=== PATIENT | male | born 1950 | race Caucasian/White ===

== ENCOUNTER 2017-10-02 20:41 | Inpatient (IN) | payer OTHER ==
[~2017-10-02] VITALS: Ht 177.8 cm; Wt 70.1 kg
[2017-10-02] MEDS ORDERED: ASPI-391 PO (21:31)
[2017-10-02] MEDS ORDERED: ASPI81TA28 PO (21:31)
[2017-10-02] MEDS ORDERED: SODIUM CHLORIDE 0.9% 1000ML 1,000 ML IV STA ×2 (21:45→23:45)
[2017-10-02] MEDS ORDERED: ALBUT/IPRATROP 3MG/0.5MG NEB 3 ML VIAL INH STA (21:45)
--- NOTE | 2017-10-02 21:53 | EMERGENCY ROOM VISIT NOTE ---
History Report prepared by Benjy: Rock Mendoza Under the Supervision of: Dr. Juancho Monsalve M.D. First contact with patient: 21:43 Chief Complaint: URINARY SYMPTOMS Stated Complaint: BLOOD IN URINE, ALL OVER PAIN, PASSING OUT Nursing Triage Summary: pt states fall last injuring ribs, states was drinking too much alcohol and fell down, pt states pain on palpation of right side ribs, states left side is healing. Pt states urine appears to have blood in it for 5 days now. Pt denies burning during urination, urgency or retention. Pt states cough since the fall non productive. 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 He notes weakness, loss of appetite. He notes that he had a fall one week ago due to intoxication. He states that he drinks alcohol every day for eight years. He notes that he has gone two days this week without drinking alcohol. He denies any history of withdrawals of alcohol in the past. He notes the rib pain. He states the hematuria started before the fall. He notes a history of smoking one pack per day. Per family, there was blood in his urine before the fall. He denies any pain with urination. He is able to urinate without issue. He notes new leg swelling. He denies any head injuries, diarrhea, chest pain, shortness of breath , fevers, chills, back pain, abdominal pain. The patient states that it has been 15 years since he has seen a doctor. 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 No pain. Able to urinate.), + weakness, No fevers, No chills, No chest pain, No abdominal pain, No back pain, No diarrhea Note: The patient notes blood in urine. He notes rib pain and leg swelling. He denies any head injuries Review of Systems See HPI for pertinent positives and negatives. A total of ten systems were reviewed and were otherwise negative. Past Medical & Surgical Medical Problems: (1) Skin problem Family History Cancer Social History Smoking Status: Current Every Day Smoker (1 ppd) Smokeless Tobacco Use: No Alcohol Use: heavy (everyday ) Drug Use: none Housing Status: lives with family Occupation Status: unemployed Current/Historical Medications Scheduled Aspirin (Aspirin Ec), 162 MG PO DAILY Scheduled PRN Gmbmxcl-Oqvbmdboluowz-Biwdirfp (Excedrin Extra Strength), 1 TAB PO DIRECTED PRN for Pain Allergies Coded Allergies: No Known Allergies (Unverified , 10/03/17) Physical Exam Vital Signs Date Time Temp Pulse Resp B/P (MAP) Pulse Ox O2 Delivery O2 Flow Rate FiO2 10/03/17 01:57 105 18 104/64 91 Room Air 10/02/17 22:37 96 16 144/85 98 Room Air 10/02/17 21:45 91 10/02/17 21:03 37.0 100 19 134/85 95 Room Air Physical Exam GENERAL: Awake, alert, ill-appearing, in no distress. Cachetic. HENT: Normocephalic, atraumatic. Oropharynx dry cracked mucus membrane EYES: Normal conjunctiva. Sclera non-icteric. NECK: Supple. No nuchal rigidity. FROM. No JVD. RESPIRATORY: Scant scattered wheezes and rhonchi. CARDIAC: Regular rate, normal rhythm. Extremities warm and well perfused. Pulses equal. ABDOMEN: Soft, non-distended. No tenderness to palpation. No rebound or guarding. No masses. RECTAL: Deferred. MUSCULOSKELETAL: The back is symmetrical on inspection without obvious abnormality. There is no CVA tenderness to palpation. No joint edema. Bilateral lateral and posterior chest wall pain. LOWER EXTREMITIES: Calves are equal size bilaterally and non-tender. No edema. No discoloration. NEURO: Normal sensorium. No sensory or motor deficits noted. SKIN: No rash or jaundice noted. Medical Decision & Procedures ER Provider Diagnostic Interpretation: Preliminary Findings Only See Final Report For Complete Findings CT ABDOMEN & PELVIS With Contrast: Fluid in the small and large bowel, can be seen with enteritis or diarrheal disease. Mild inferior rectal/anal wall thickening. No evidence of bowel obstruction. Gastric wall thickening or underdistention. Fat-containing left inguinal hernia. Additional incidental findings. Preliminary Findings Only See Final Report For Complete Findings CT CHEST With Contrast: No aortic dissection or large central PE. Fracture of the left fourth-eighth ribs and right third-seventh ribs. Age-indeterminate compression deformity of the T12 vertebral body with approximately 4 mm retropulsion. Patchy infiltrates most prominent in the right middle lobe. Correlate clinically for inflammatory/infectious process.. Tiny pulmonary nodules. Followup imaging may be considered if indicated. No pneumothorax or pleural effusion. Mild esophageal wall thickening Laboratory Results Test 10/02/17 22:13 10/02/17 22:20 10/02/17 22:32 10/02/17 22:45 Influenza Type A Antigen Neg for Influ A (NEG) Influenza Type B Antigen Neg for Influ B (NEG) Prothrombin Time 10.3 SECONDS (9.0-12.0) Prothromb Time International Ratio 1.0 (0.9-1.1) Activated Partial Thromboplast Time 32.0 SECONDS (21.0-31.0) Partial Thromboplastin Ratio 1.2 Direct Bilirubin 0.4 mg/dl (0-0.2) Lipase 84 U/L (73-393) Lactic Acid Level 1.1 mmol/L (0.4-2.0) Ethyl Alcohol mg/dL < 3.0 mg/dl (0-3) Bedside Hemoglobin 13.6 g/dl (14.0-18.0) Bedside Hematocrit 40 % (42-52) Bedside Sodium 128 mEq/L (135-144) Bedside Potassium 4.4 mEq/L (3.3-5.0) Bedside Chloride 89 mEq/L (101-112) Bedside Total CO2 28 mEq/l (24-31) Bedside Blood Urea Nitrogen 14 mg/dl (7-18) Bedside Creatinine 0.6 mg/dl (0.6-1.3) Bedside Glucose (other) 92 mg/dl (70-99) Bedside Ionized Calcium (Ceci) 1.05 mmol/l (1.12-1.32) Test 10/02/17 23:15 Urine Color ORANGE Urine Appearance CLEAR (CLEAR) Urine pH 6.0 (4.5-7.5) Urine Specific [place] 1.022 (1.000-1.030) Urine Protein NEG (NEG) Urine Glucose (UA) NEG (NEG) Urine Ketones 3+ (NEG) Urine Occult Blood NEG (NEG) Urine Nitrite POS (NEG) Urine Bilirubin NEG (NEG) Urine Urobilinogen POS (NEG) Urine Leukocyte Esterase TRACE (NEG) Urine WBC (Auto) 1-5 /hpf (0-5) Urine RBC (Auto) 0-4 /hpf (0-4) Urine Hyaline Casts (Auto) 5-10 /lpf (0-5) Urine Epithelial Cells (Auto) 10-20 /lpf (0-5) Urine Bacteria (Auto) NEG (NEG) Urine Opiates Screen NEG (NEG) Urine Methadone, Qualitative NEG (NEG) Urine Barbiturates NEG (NEG) Urine Phencyclidine (PCP) Level NEG (NEG) Ur Amphetamine/Methamphetamine NEG (NEG) MDMA (Ecstasy) Screen NEG (NEG) Urine Benzodiazepines Screen NEG (NEG) Urine Cocaine Metabolite NEG (NEG) Urine Marijuana (THC) NEG (NEG) Date/Time Source Procedure Growth Status 10/03/17 00:00 Nasal MRSA DNA Surveillance Screen - Final Specimen Negative for MRSA by DNA Probe Complete Laboratory results reviewed by me Medications Administered Medications (Trade) Dose Ordered Sig/Jacklyn Route Start Time Stop Time Status Last Admin Dose Admin Sodium Chloride 1,000 ml @ 999 mls/hr Q1H1M STAT IV 10/02/17 21:45 10/02/17 22:45 DC 10/02/17 22:35 999 MLS/HR Albuterol/ Ipratropium (Duoneb) 3 ml NOW STAT INH 10/02/17 21:45 10/02/17 21:52 DC 10/02/17 22:15 3 ML Vancomycin HCl 1500 mg/Sodium Chloride 530 ml @ 200 mls/hr ONE STAT IV 10/02/17 23:45 10/03/17 02:23 DC 10/03/17 00:38 200 MLS/HR Piperacillin Sod/ Tazobactam Sod (Zosyn Iv) 4.5 gm NOW STAT IV 10/02/17 23:45 10/03/17 13:14 DC 10/03/17 00:18 4.5 GM Sodium Chloride 1,000 ml @ 999 mls/hr Q1H1M STAT IV 10/02/17 23:45 10/03/17 00:45 DC 10/03/17 00:12 999 MLS/HR Aspirin (Aspirin Chew) 324 mg NOW STAT PO 10/03/17 00:24 10/03/17 00:26 DC 10/03/17 00:38 324 MG Multivitamins 10 ml/Thiamine HCl 100 mg/Folic Acid 1 mg/Sodium Chloride 1,011.2 ml @ 500 mls/ hr Q2H2M ONCE IV 10/03/17 00:40 10/03/17 02:41 DC 10/03/17 01:57 500 MLS/HR Acetaminophen (Tylenol Tab) 650 mg Q4H PRN PO 10/03/17 02:30 11/02/17 02:29 10/03/17 19:50 650 MG ECG Indication: other (hematuria) Rate (beats per minute): 94 Rhythm: normal sinus Findings: T-wave inversion (in V2 and V3), other (Normal axis) Change: TWI new when compared to 12/16/2015 ED Course 2144: The patient was evaluated in room B4B. A complete history and physical exam was performed. 0028: I reassessed the patient at this time. He is resting comfortably. I discussed the results and treatment plan with the patient. I answered all pertaining questions that he had. He expressed understanding and verbalized agreement. The patient will be further evaluated. 0030: I spoke with Dr. Turcios, hospitalist. We discussed the patients case. The patient will be evaluated by the [facility] for further management. Medical Decision I reviewed the patient's past medical history, medications, and the nursing notes as described above. The patient's presentation and history were concerning for PNA, bronchitis, UTI , ureteral stone, sepsis, viral syndrome, and ACS. The patient is a 67-year-old gentleman chronic smoker and alcohol use of 8 beers daily presents emergency Department with worsening fatigue, generalized weakness and report of hematuria times one week also with bilateral chest wall pain after having a fall when intoxicated 10 days ago per hpi. Arrival the patient is ill-appearing but in no acute distress, afebrile with stable vital signs. She has scattered wheezes and rhonchi. Bilateral chest wall tenderness without any crepitus. Abdomen benign. Labs notable for a leukocytosis as well as CT chest demonstrating right lobe infiltrates. Additionally UA shows nitrites consistent with UTI. No blood however. Troponin elevated 0.2 and EKG with T-wave inversions in V2 and V3 although no recent EKGs for comparison. Given the patient's clinical dry status as well as his pneumonia we'll continue to trend troponin for now prior to considering heparin. Patient demonstrates no signs of alcohol withdrawal at this time however given the patient's history of regular alcohol use will put on CIWA and give banana bag. Case d/w Dr. Turcios, [facility] hospitalist, who will admit the patient for further management. Medication Reconcilliation Current Medication List: was personally reviewed by me Blood Pressure Screening Patient's blood pressure: Elevated blood pressure Blood pressure disposition: Elevated BP felt to be situational Consults Time Called: 24 Consulting Physician: Dr. Turcios hospitalist. Returned Call: [address] Turcios, hospitalist. We discussed the patients case. The patient will be evaluated by the [facility] for further management. Impression Primary Impression: PNA (pneumonia) Additional Impressions: Multiple fractures of ribs of both sides UTI (urinary tract infection) Sepsis Scribe Attestation The scribe's documentation has been prepared under my direction and personally reviewed by me in its entirety. I confirm that the note above accurately reflects all work, treatment, procedures, and medical decision making performed by me. Departure Information Dispostion Being Evaluated By Hospitalist Patient Instructions My [facility] Health Problem Qualifiers
[2017-10-02] MEDS ORDERED: OPTIRAY 320 IV PRN (22:00)
[2017-10-02 22:51] LABS: BASO % 0.2 %; BASO ABS # 0.04 K/uL (0-0.2); EOS % 0.1 %; EOS ABS # 0.01 K/uL (0-0.5); HEMATOCRIT 40.5 % (42-52); HEMOGLOBIN 13.9 g/dL (14.0-18.0); IG# 0.06 K/uL (0.00-0.02); LYMPH % 10.2 %; LYMPH ABS # 1.66 K/uL (1.2-3.4); MEAN CELL VOLUME 97.4 fL (80-100); MEAN CORPUSCULAR HEMOGLOBIN 33.4 pg (25-34); MEAN CORPUSCULAR HGB CONC 34.3 g/dl (32-36); MEAN PLATELET VOLUME 9.3 fL (7.4-10.4); MONO % 13.5 %; MONO ABS # 2.19 K/uL (0.11-0.59); NEUT % 75.6 %; NEUT ABS # 12.24 K/uL (1.4-6.5); PLATELET COUNT 228 K/uL (130-400); RED CELL DISTRIBUTION WIDTH CV 12.7 % (11.5-14.5); RED CELL DISTRIBUTION WIDTH SD 44.7 fL (36.4-46.3)
--- NOTE | 2017-10-02 22:52 | DIAGNOSTIC IMAGING REPORT ---
CHEST ONE VIEW PORTABLE CLINICAL HISTORY: ABDOMINAL PAIN/GI nausea COMPARISON STUDY: No previous studies for comparison. FINDINGS: Probable interstitial infiltrate right base. Lungs otherwise appear clear. Calcified granuloma left upper lung. No cardiac enlargement. No significant pleural fluid. IMPRESSION: Probable interstitial infiltrate right base The above report was generated using voice recognition software. It may contain grammatical, syntax or spelling errors. Electronically signed by: Chicho Pettit M.D. 10/02/2017 10:51 PM Dictated Date/Time: 10/02/2017 10:50 PM
[2017-10-02 22:57] LABS: ISTAT CREATININE 0.6 mg/dl (0.6-1.3); ISTAT IONIZED CALCIUM 1.05 mmol/l (1.12-1.32); ISTAT POTASSIUM 4.4 mEq/L (3.3-5.0)
[2017-10-02 23:09] LABS: ALBUMIN 2.9 gm/dl (3.4-5.0); CALCIUM 8.7 mg/dl (8.5-10.1); CREATININE 0.51 mg/dl (0.60-1.40)
[2017-10-02 23:33] LABS: INFLUENZA B ANTIGEN Neg for Influ B (NEG)
[2017-10-02] MEDS ORDERED: VANCOMYCIN INJ 1,500 MG in SODIUM CHLORIDE 0.9% 500ML 500 ML IV STA (23:45)
[2017-10-02] MEDS ORDERED: PIPERACILLIN/TAZOBACTAM 4.5 GM/100ML D5W IV STA (23:45)
[2017-10-03] VITALS (11 sets, daily range): BP systolic 111–129; BP diastolic 70–85; PULSE 72–101; TEMP 36.7–37.3; O2SAT 83–99; BMI 23.2
[2017-10-03] MEDS ORDERED: ASPIRIN 81 MG CHEW PO STA (00:24)
[2017-10-03] MEDS ORDERED: MULTI-VITAMIN INFUSION INJ 10 ML, THIAMINE HCL INJ 100 MG, FoLIC ACID INJ 1 MG in SODIU... IV ONE ×2 (00:40→03:00)
[2017-10-03] MEDS ORDERED: LORAZEPAM 1 MG TAB PO PRN (00:45)
[2017-10-03] MEDS ORDERED: ONDANSETRON INJ 2 MG/ML 2 ML VIAL IV PRN (02:30)
[2017-10-03] MEDS ORDERED: CHLORDIAZEPOXIDE 25 MG CAP PO SCH (02:30)
[2017-10-03] MEDS ORDERED: MAGNESIUM HYDROXIDE SUSP 30 ML UDC PO PRN (02:30)
--- NOTE | 2017-10-03 03:08 | History and Physical ---
History & Physical Date & Time of Service: Oct 03, 2017 at 02:36 Chief Complaint: Blood In Urine, All Over Pain, Passing Out Primary Care Physician: No Doctor, Assigned History of Present Illness Source: patient, hospital records Patient is a 67 year old male with a history of alcoholism that presents with pneumonia and multiple rib fractures s/p fall. The patient experienced a fall 2 weeks ago when drunk although did not seek medical attention. The patient then started to develop a productive cough 1 week ago that has continued to progress to the point his family urged him to come to the hospital. The patient has also states that his urine appear bloody almost like "tomato juice" and has been this way for a few week even before the fall, but denies any other urinary symptoms including dysuria or urinary frequency. The patient drinks approximately 8 beers every day and his last drink was yesterday evening. The patient also smoke 1 pack of cigarettes per day. The patient has bilateral chest pain with cough that is approximately 8/10. The patient denies any shortness of breath, fever, or chill with his associated cough. The patient does appreciate that he has been more fatigued the last week with reduced appetite. Past Medical/Surgical History Medical Problems: (1) Skin problem Status: Resolved Family History Cancer Social History Smoking Status: Current Every Day Smoker (1 ppd) Smokeless Tobacco Use: No Alcohol Use: none Drug Use: none Occupational Status: unemployed Immunizations History of Influenza Vaccine: Unknown History of Tetanus Vaccine?: Unknown History of Pneumococcal: Unknown History of Hepatitis B Vaccine: Unknown Multi-Drug Resistant Organisms History of MDRO: No Allergies Coded Allergies: No Known Allergies (Unverified , 10/03/17) Home Medications Scheduled Aspirin (Aspirin Ec), 162 MG PO DAILY Scheduled PRN Vervudz-Xgohwtxuayjpt-Ovtaliph (Excedrin Extra Strength), 1 TAB PO DIRECTED PRN for Pain Review of Systems Constitutional: No fever, No chills, No sweats Respiratory: + cough, + wheezing, No sputum, No shortness of breath Cardiovascular: + chest pain, No edema, No palpitations Abdomen: No pain, No nausea, No vomiting, No diarrhea Genitourinary - Male: + hematuria, No dysuria Neurologic: No memory loss, No numbness/tingling, No vertigo Endocrine: No fatigue Physical Exam Vital Signs Date Time Temp Pulse Resp B/P (MAP) Pulse Ox O2 Delivery O2 Flow Rate FiO2 10/03/17 01:57 105 18 104/64 91 Room Air 10/02/17 22:37 96 16 144/85 98 Room Air 10/02/17 21:45 91 10/02/17 21:03 37.0 100 19 134/85 95 Room Air General Appearance: no apparent distress, + pertinent finding (disheveled appearance) Head: normocephalic, atraumatic Eyes: normal inspection, sclerae normal Neck: supple, no carotid bruits Respiratory/Chest: no accessory muscle use, + pertinent finding (bilateral chest pain to palpation. Decreased breath sounds bilaterally with scattered wheezing and coarse breath sounds ) Cardiovascular: regular rate, rhythm, no edema, no gallop Abdomen/GI: normal bowel sounds, non tender, soft Extremities/Musculoskelatal: normal inspection, no calf tenderness Neurologic/Psych: inspector aide II-XII nml as tested, alert, oriented x 3 Diagnostics Laboratory Results Results Past 24 Hours Test 10/02/17 22:13 10/02/17 22:20 10/02/17 22:32 10/02/17 22:45 Range/Units Influenza Type A Antigen Neg for Influ A NEG Influenza Type B Antigen Neg for Influ B NEG White Blood Count 16.20 4.8-10.8 K/uL Red Blood Count 4.16 4.7-6.1 M/uL Hemoglobin 13.9 14.0-18.0 g/dL Hematocrit 40.5 42-52 % Mean Corpuscular Volume 97.4 80-100 fL Mean Corpuscular Hemoglobin 33.4 25-34 pg Mean Corpuscular Hemoglobin Concent 34.3 32-36 g/dl Platelet Count 228 130-400 K/uL Mean Platelet Volume 9.3 7.4-10.4 fL Neutrophils (%) (Auto) 75.6 % Lymphocytes (%) (Auto) 10.2 % Monocytes (%) (Auto) 13.5 % Eosinophils (%) (Auto) 0.1 % Basophils (%) (Auto) 0.2 % Neutrophils # (Auto) 12.24 1.4-6.5 K/uL Lymphocytes # (Auto) 1.66 1.2-3.4 K/uL Monocytes # (Auto) 2.19 0.11-0.59 K/uL Eosinophils # (Auto) 0.01 0-0.5 K/uL Basophils # (Auto) 0.04 0-0.2 K/uL RDW Standard Deviation 44.7 36.4-46.3 fL RDW Coefficient of Variation 12.7 11.5-14.5 % Immature Granulocyte % (Auto) 0.4 % Immature Granulocyte # (Auto) 0.06 0.00-0.02 K/uL Prothrombin Time 10.3 9.0-12.0 SECONDS Prothromb Time International Ratio 1.0 0.9-1.1 Activated Partial Thromboplast Time 32.0 21.0-31.0 SECONDS Partial Thromboplastin Ratio 1.2 Sodium Level 128 136-145 mmol/L Potassium Level 4.0 3.5-5.1 mmol/L Chloride Level 91 98-107 mmol/L Carbon Dioxide Level 26 21-32 mmol/L Anion Gap 11.0 17.0 16-25 mmol/L Blood Urea Nitrogen 12 7-18 mg/dl Creatinine 0.51 0.60-1.40 mg/dl Est Creatinine Clear Calc Drug Dose 135.2 ml/min Estimated GFR () 128.9 Estimated GFR (Non- 111.2 BUN/Creatinine Ratio 24.0 10-20 Random Glucose 86 70-99 mg/dl Calcium Level 8.7 8.5-10.1 mg/dl Total Bilirubin 1.3 0.2-1 mg/dl Direct Bilirubin 0.4 0-0.2 mg/dl Aspartate Amino Transf (AST/SGOT) 19 15-37 U/L Alanine Aminotransferase (ALT/SGPT) 16 12-78 U/L Alkaline Phosphatase 59 45-117 U/L Troponin I 0.214 0-0.045 ng/ml Total Protein 7.0 6.4-8.2 gm/dl Albumin 2.9 3.4-5.0 gm/dl Lipase 84 73-393 U/L Lactic Acid Level 1.1 0.4-2.0 mmol/L Ethyl Alcohol mg/dL < 3.0 0-3 mg/dl Bedside Hemoglobin 13.6 14.0-18.0 g/dl Bedside Hematocrit 40 42-52 % Bedside Sodium 128 135-144 mEq/L Bedside Potassium 4.4 3.3-5.0 mEq/L Bedside Chloride 89 101-112 mEq/L Bedside Total CO2 28 24-31 mEq/l Bedside Blood Urea Nitrogen 14 7-18 mg/dl Bedside Creatinine 0.6 0.6-1.3 mg/dl Bedside Glucose (other) 92 70-99 mg/dl Bedside Ionized Calcium (Ceci) 1.05 1.12-1.32 mmol/l Test 10/02/17 23:15 10/03/17 01:13 10/03/17 02:18 Range/Units Urine Color ORANGE Urine Appearance CLEAR CLEAR Urine pH 6.0 4.5-7.5 Urine Specific [place] 1.022 1.000-1.030 Urine Protein NEG NEG Urine Glucose (UA) NEG NEG Urine Ketones 3+ NEG Urine Occult Blood NEG NEG Urine Nitrite POS NEG Urine Bilirubin NEG NEG Urine Urobilinogen POS NEG Urine Leukocyte Esterase TRACE NEG Urine WBC (Auto) 1-5 0-5 /hpf Urine RBC (Auto) 0-4 0-4 /hpf Urine Hyaline Casts (Auto) 5-10 0-5 /lpf Urine Epithelial Cells (Auto) 10-20 0-5 /lpf Urine Bacteria (Auto) NEG NEG Troponin I 0.234 0-0.045 ng/ml Microbiology Results 10/02/17 Blood Culture, Received Pending Impression Assessment and Plan Patient is a 67 year old male with a history of alcoholism that presents with pneumonia and multiple rib fractures s/p fall 2 weeks ago Pneumonia - Admit to Telemetry - CXR: Right lung basilar infiltrate - CT Chest: Patchy infiltrate of R middle lobe - Broad spectrum antibiotics --> Vancomycin, Levaquin, and Zosyn - Oxygen as needed to maintain SpO2 > 92% --> Currently on room air - Duonebs - Flutter Valve - Pain control for rib fractures --> Tylenol - Blood cultures ordered Multiple Rib Fractures s/p fall - CT Chest --> Fracture of Left Ribs 4-8, Right Ribs 3-7 --> No s/s of flail chest - Pain control with Tylenol - Incentive Spirometry - Compression deformity of T12 with 4mm retropulsion of unknown age Elevated Troponin - Most likely 2/2 demand ischemia - Initial Troponin 0.214 --> Repeat Troponin q6h x3 - Echo - Cardiology consult Alcohol Withdrawal - CIWA protocol --> 50mg Librium and IV Ativan as needed --> last drink 24 hours ago - Banana Bag - Thiamine daily - IV NS 100mls/hr - Lab: Thiamine, Folate, Urine Tox Bowel Enteritis - CT Abdomen showed fluid in small and large bowl seen with enteritis - Tolerating PO (family brought patient food in the ED) --> Continue to monitor - Ordered regular diet DVT - Heparin Code Status - Full Resuscitation Attending addendum: I have physically seen this patient, have supervised the medical residents activities, and agree with the H&P unless as otherwise noted. Assessment and Plan: Pneumonia involving right middle and right lower lobe-- Vancomycin IV per pharmacokinetic monitoring Zosyn 3.375 mg IV every 8 hours Levofloxacin 500 mg IV every 24 hours Duonebs every 4 hours while awake and every 2 hours when necessary. Solu-Medrol 40 mg IV every 8 hours Guaifenesin extended release 600 mg by mouth twice a day Nasal cannula oxygen titrate to keep pulse ox greater than or equal to 92% Sputum Gram stain and culture Elevated troponin-- The patient will be admitted to telemetry for serial cardiac enzymes, serial EKG's, cardiac rhythm monitoring and a 2-D echocardiogram with Dopplers. Likely supply demand mismatch Level of Care Telemetry Advanced Directives Existing Advance Directive: No Existing Living Will: No Existing Power of Aromatherapist: No Resuscitation Status FULL RESUSCITATION VTE Prophylaxis VTE Risk Assessment Done? Y/N: Yes Risk Level: Moderate Given or contraindicated: Unfractionated heparin SQ Resident Tracking Resident Involvement: Resident Care Provided Care Provided: Adult Hospital Medicine
[2017-10-03] MEDS ORDERED: PIPERACILL/TAZOBAC CONSULT ACTIVE PRN (04:15)
[2017-10-03] MEDS ORDERED: VANCOMYCIN CONSULT ACTIVE PRN (04:15)
[2017-10-03] MEDS: CHLORDIAZEPOXIDE 50MG STARTING DOSE PO SCH ×4 (04:21→23:04)
[2017-10-03] MEDS: THIAMINE HCL INJ 100 MG in SYRINGE 9 ML IV SCH (04:24)
[2017-10-03] MEDS ORDERED: PNEUMOCOCCAL POLYSACCHARIDES 25 MCG/0.5 ML VIAL/SYR IM. ONE (05:15)
[2017-10-03] MEDS ORDERED: INFLUENZA ADMINISTRATION CHARGE ONE (05:15)
[2017-10-03] MEDS ORDERED: PNEUMOCOCCAL ADMINISTRATION CHARGE ONE (05:15)
[2017-10-03] MEDS ORDERED: INFLUENZA VIRUS QUAD VACCINE 0.5 ML SYR IM. ONE (05:15)
[2017-10-03] MEDS ORDERED: PIPERACILL/TAZOBAC IV 3.375 GM in DEXTROSE 5% 100ML 100 ML IV SCH (06:00)
[2017-10-03] MEDS: HEPARIN SOD 5000 UNIT/0.5 ML CARP SQ SCH ×3 (06:00→19:35)
[2017-10-03] MEDS: SODIUM CHLORIDE 0.9% 1000ML 1,000 ML IV SCH ×2 (06:09→19:52)
--- NOTE | 2017-10-03 07:00 | DIAGNOSTIC IMAGING REPORT ---
CT OF THE CHEST WITH IV CONTRAST CLINICAL HISTORY: Chest pain status post trauma COMPARISON STUDY: Chest x-ray dated 10/02/2017 TECHNIQUE: Following the IV administration of 118 mL of Optiray-320, CT of the thorax was performed from the thoracic inlet to the lung bases. Images are reviewed in the axial, sagittal, and coronal planes. IV contrast was administered without complication. A dose lowering technique was utilized adhering to the principles of ALARA. CT DOSE: 622.45 mGy.cm FINDINGS: Thyroid: Imaged portions of the thyroid gland are normal in appearance. Thoracic aorta: The thoracic aorta is normal in course and caliber, noting standard 3-vessel arch anatomy. No aneurysm or dissection is seen. Pulmonary vasculature: The pulmonary trunk is normal in caliber. There are no central filling defects identified to suggest pulmonary embolus. Note that this examination was not protocoled for the evaluation of pulmonary emboli. HEART: The heart is normal in size and configuration, without pericardial effusion. Lungs and pleural spaces: There is pulmonary emphysema. There are airspace opacities present within the right middle lobe and right lower lobe. No pleural effusions are visualized. There is no pneumothorax. There are scattered tiny 2 mm nodules throughout both lungs. Mediastinum: There is no mediastinal lymphadenopathy. Sandra: There is no evidence of pathologic hilar adenopathy Axilla: There is no evidence of pathologic axillary lymphadenopathy Upper abdomen: There is hepatic steatosis Skeletal structures: There are fractures of the right seventh and sixth fifth fourth and third ribs. There are fractures of the left third fourth fifth sixth seventh, and eighth ribs. There is an age-indeterminate T12 compression fracture, with mild retropulsion.. IMPRESSION: 1. Fractures of the right third through seventh ribs. 2. Fractures of the left third through eighth ribs. 3. Age-indeterminate T12 compression fracture with minor retropulsion 4. No evidence of pneumothorax 5. Patchy airspace opacities within the right middle lobe and right lower lobe, suspicious for a pneumonia. 6. Scattered tiny bilateral pulmonary nodules. 7. Emphysema Electronically signed by: Jeremías Pnieda M.D. 10/03/2017 6:58 AM Dictated Date/Time: 10/03/2017 6:48 AM
[2017-10-03] MEDS: ALBUT/IPRATROP 3MG/0.5MG NEB 3 ML VIAL INH SCH ×4 (07:16→19:54)
--- NOTE | 2017-10-03 07:32 | DIAGNOSTIC IMAGING REPORT ---
CT SCAN OF THE ABDOMEN AND PELVIS WITH IV CONTRAST CLINICAL HISTORY: Generalized abdominal pain. Hematuria. COMPARISON STUDY: No priors. TECHNIQUE: Following the IV administration of 118 cc of Optiray 320, CT scan of the abdomen and pelvis is performed from the lung bases to the proximal femora. Images are reviewed in the axial, sagittal, and coronal planes. IV contrast was administered without complication. A dose lowering technique was utilized adhering to the principles of ALARA. FINDINGS: Lung bases: The heart is normal in size and without pericardial effusion. Emphysema is suspected. There is airspace consolidation present within the right middle lobe and the anterior right lower lobe. No pleural effusion is identified. Liver: The contrast-enhanced liver is normal in size, contour, and attenuation. There is no intrahepatic biliary ductal dilatation. The hepatic veins and portal veins are patent. Gallbladder: Unremarkable. Spleen: Normal in size and attenuation. Pancreas: Unremarkable. Adrenal glands: Unremarkable. Kidneys: The contrast enhanced kidneys demonstrate mild cortical atrophy and are without hydronephrosis. The kidneys enhance symmetrically. Abdominal vasculature: The abdominal aorta is normal in course and caliber noting advanced atherosclerotic calcification. Bowel: Liquid stool is noted in the colon. No bowel obstruction is seen. The appendix is not clearly identified. Peritoneum: There is no intraperitoneal free air or abdominal ascites. Lymphadenopathy: None. Pelvic viscera: The bladder, prostate, and seminal vesicles are normal as visualized. There is a fat-containing left inguinal hernia. Skeletal structures: The skeletal structures are osteopenic. No lytic or blastic lesions are seen. There is an age indeterminant right anterior seventh rib fracture. There are also age indeterminant left-sided rib fractures. There is a moderate compression deformity of T12. Degenerative change and scoliosis are noted in the lumbar spine. IMPRESSION: 1. There is liquid stool present throughout the colon. Cortical clinically for evidence of a diarrheal illness. There is no associated colonic wall thickening or pericolonic inflammation. 2. There is an age indeterminant compression deformity of T12 as well as age-indeterminate rib fractures. Correlate clinically for a history of trauma and point tenderness. 3. Consolidation is seen within the right middle and lower lobes. Correlated clinically for evidence of pneumonia. Radiographic follow-up to resolution is recommended. 4. Fat-containing left inguinal hernia. 5. Additional findings as above. Electronically signed by: Juan C Patiño M.D. 10/03/2017 7:31 AM Dictated Date/Time: 10/03/2017 7:25 AM
[2017-10-03] MEDS ORDERED: NICOTINE 21 MG/24 HR TDSY TD SCH (09:00)
--- NOTE | 2017-10-03 09:00 | Family Medicine Progress Note ---
Progress Note Date of Service Oct 03, 2017. Subjective Pt evaluation today including: conversation w/ patient, physical exam, chart review, lab review, review of studies, review of inpatient medication list Complaining of 7/10 best pain worse on palpation. Denies shortness of breath but cannot take deep breaths due to pain. No palpitations, orthopnea, PND. He has a non productive cough. No fevers or chills. He denies any anxiety, tremors, headache, hallucinations. He notes he previous gave up alcohol for a month 3 years prior without any issues. He has never been to rehabilitation or had any alcohol withdrawal seizures. All Other Systems: Reviewed and Negative Medications Current Inpatient Medications Medications (Trade) Dose Ordered Sig/Jacklyn Route Start Time Stop Time Status Last Admin Dose Admin Ioversol (Optiray 320) 111 ml UD PRN IV 10/02/17 22:00 10/06/17 21:59 Sodium Chloride 1,000 ml @ 100 mls/hr Q10H IV 10/03/17 06:00 11/02/17 05:59 10/03/17 06:09 100 MLS/HR Thiamine HCl 100 mg/Syringe 10 ml @ 2 mls/min Q24H IV 10/03/17 03:00 11/02/17 02:59 10/03/17 04:24 2 MLS/MIN Lorazepam (Ativan Inj) PRN Dosing -Active Protocol Q1H PRN IV 10/03/17 02:30 11/02/17 02:29 Acetaminophen (Tylenol Tab) 650 mg Q4H PRN PO 10/03/17 02:30 11/02/17 02:29 Magnesium Hydroxide (Milk Of Magnesia Susp) 30 ml Q12H PRN PO 10/03/17 02:30 11/02/17 02:29 Ondansetron HCl (Zofran Inj) 4 mg Q6H PRN IV 10/03/17 02:30 11/02/17 02:29 Aspirin (Ecotrin Tab) 81 mg QAM PO 10/03/17 09:00 11/02/17 08:59 Piperacillin Sod/ Tazobactam Sod 3.375 gm/Dextrose 115 ml @ 28.75 mls/ hr Q8H IV 10/03/17 06:00 10/10/17 05:59 10/03/17 06:07 28.75 MLS/HR Levofloxacin (Levaquin Tab) 750 mg Q2D@11 PO 10/03/17 11:00 10/10/17 10:59 Nicotine (Nicoderm Cq 21MG Patch) 1 patch QAM TD 10/03/17 09:00 11/02/17 08:59 Miscellaneous (Remove Nicoderm Patch) 1 ea HS N/A 10/03/17 21:00 11/02/17 20:59 Albuterol/ Ipratropium (Duoneb) 3 ml QIDR INH 10/03/17 08:00 11/02/17 07:59 10/03/17 07:16 3 ML Chlordiazepoxide (Librium Cap) 50 mg Q6H PO 10/03/17 04:00 10/03/17 22:01 10/03/17 04:21 50 MG Chlordiazepoxide (Librium Cap) 50 mg Q8H PO 10/04/17 06:00 10/04/17 22:01 Chlordiazepoxide (Librium Cap) 25 mg Q8H PO 10/05/17 06:00 10/05/17 22:01 Chlordiazepoxide (Librium Cap) 10 mg Q12H PO 10/06/17 10:00 10/06/17 22:01 Vancomycin HCl (Consult) 1 ea UD PRN N/A 10/03/17 04:15 11/02/17 04:14 Piperacillin Sod/ Tazobactam Sod (Consult) 1 ea UD PRN N/A 10/03/17 04:15 11/02/17 04:14 Heparin Sodium (Porcine) (Heparin Sq 5000 Unit/0.5ml) 5,000 unit Q8 SQ 10/03/17 06:00 11/02/17 05:59 Nicotine (Nicoderm Cq 21MG Patch) 1 patch QAM TD 10/03/17 09:00 11/02/17 08:59 UNV Miscellaneous (Remove Nicoderm Patch) 1 ea HS N/A 10/03/17 21:00 11/02/17 20:59 UNV Nicotine Polacrilex (Nicorette 2MG Gum) 1 piece PRN PRN MT 10/03/17 09:00 11/02/17 08:59 UNV Objective Vital Signs Date Time Temp Pulse Resp B/P (MAP) Pulse Ox O2 Delivery O2 Flow Rate FiO2 10/03/17 07:17 93 18 83 Room Air 10/03/17 03:59 37.3 101 20 129/85 93 Nasal Cannula 2.0 10/03/17 03:34 37.0 105 18 104/64 91 10/03/17 01:57 105 18 104/64 91 Room Air 10/02/17 22:37 96 16 144/85 98 Room Air 10/02/17 21:45 91 10/02/17 21:03 37.0 100 19 134/85 95 Room Air Physical Exam General Appearance: no apparent distress, + thin (appears malnourished) Eyes: normal inspection, sclerae normal Neck: trachea midline Respiratory/Chest: no respiratory distress, no accessory muscle use, + crackles (throughout with poor inspiratory effort), + rhonchi (b/l) Cardiovascular: regular rate, rhythm (quiet), no murmur Abdomen: normal bowel sounds, non tender, soft Extremities: no pedal edema, no calf tenderness, normal capillary refill Neurologic/Psychiatric: no motor/sensory deficits (grossly), alert, oriented x 3, + pertinent finding (no tremor or agitation) Skin: normal color, warm/dry, no rash Laboratory Results 10/02/17 22:20 Red Blood Count 4.16, Mean Corpuscular Volume 97.4, Mean Corpuscular Hemoglobin 33.4, Mean Corpuscular Hemoglobin Concent 34.3, Mean Platelet Volume 9.3, Neutrophils (%) (Auto) 75.6, Lymphocytes (%) (Auto) 10.2, Monocytes (%) (Auto) 13.5, Eosinophils (%) (Auto) 0.1, Basophils (%) (Auto) 0.2, Neutrophils # (Auto ) 12.24, Lymphocytes # (Auto) 1.66, Monocytes # (Auto) 2.19, Eosinophils # (Auto ) 0.01, Basophils # (Auto) 0.04 10/02/17 22:20 Test 10/02/17 22:13 10/02/17 22:20 10/02/17 22:32 10/02/17 22:45 Influenza Type A Antigen Neg for Influ A (NEG) Influenza Type B Antigen Neg for Influ B (NEG) White Blood Count 16.20 K/uL (4.8-10.8) Red Blood Count 4.16 M/uL (4.7-6.1) Hemoglobin 13.9 g/dL (14.0-18.0) Hematocrit 40.5 % (42-52) Mean Corpuscular Volume 97.4 fL (80-100) Mean Corpuscular Hemoglobin 33.4 pg (25-34) Mean Corpuscular Hemoglobin Concent 34.3 g/dl (32-36) Platelet Count 228 K/uL (130-400) Mean Platelet Volume 9.3 fL (7.4-10.4) Neutrophils (%) (Auto) 75.6 % Lymphocytes (%) (Auto) 10.2 % Monocytes (%) (Auto) 13.5 % Eosinophils (%) (Auto) 0.1 % Basophils (%) (Auto) 0.2 % Neutrophils # (Auto) 12.24 K/uL (1.4-6.5) Lymphocytes # (Auto) 1.66 K/uL (1.2-3.4) Monocytes # (Auto) 2.19 K/uL (0.11-0.59) Eosinophils # (Auto) 0.01 K/uL (0-0.5) Basophils # (Auto) 0.04 K/uL (0-0.2) RDW Standard Deviation 44.7 fL (36.4-46.3) RDW Coefficient of Variation 12.7 % (11.5-14.5) Immature Granulocyte % (Auto) 0.4 % Immature Granulocyte # (Auto) 0.06 K/uL (0.00-0.02) Prothrombin Time 10.3 SECONDS (9.0-12.0) Prothromb Time International Ratio 1.0 (0.9-1.1) Activated Partial Thromboplast Time 32.0 SECONDS (21.0-31.0) Partial Thromboplastin Ratio 1.2 Est Creatinine Clear Calc Drug Dose 135.2 ml/min Estimated GFR () 128.9 Estimated GFR (Non- 111.2 BUN/Creatinine Ratio 24.0 (10-20) Calcium Level 8.7 mg/dl (8.5-10.1) Total Bilirubin 1.3 mg/dl (0.2-1) Direct Bilirubin 0.4 mg/dl (0-0.2) Aspartate Amino Transf (AST/SGOT) 19 U/L (15-37) Alanine Aminotransferase (ALT/SGPT) 16 U/L (12-78) Alkaline Phosphatase 59 U/L (45-117) Total Protein 7.0 gm/dl (6.4-8.2) Albumin 2.9 gm/dl (3.4-5.0) Lipase 84 U/L (73-393) Lactic Acid Level 1.1 mmol/L (0.4-2.0) Ethyl Alcohol mg/dL < 3.0 mg/dl (0-3) Bedside Hemoglobin 13.6 g/dl (14.0-18.0) Bedside Hematocrit 40 % (42-52) Bedside Sodium 128 mEq/L (135-144) Bedside Potassium 4.4 mEq/L (3.3-5.0) Bedside Chloride 89 mEq/L (101-112) Bedside Total CO2 28 mEq/l (24-31) Anion Gap 17.0 mmol/L (16-25) Bedside Blood Urea Nitrogen 14 mg/dl (7-18) Bedside Creatinine 0.6 mg/dl (0.6-1.3) Bedside Glucose (other) 92 mg/dl (70-99) Bedside Ionized Calcium (Ceci) 1.05 mmol/l (1.12-1.32) Test 10/02/17 23:15 10/03/17 02:52 10/03/17 06:55 Urine Color ORANGE Urine Appearance CLEAR (CLEAR) Urine pH 6.0 (4.5-7.5) Urine Specific [place] 1.022 (1.000-1.030) Urine Protein NEG (NEG) Urine Glucose (UA) NEG (NEG) Urine Ketones 3+ (NEG) Urine Occult Blood NEG (NEG) Urine Nitrite POS (NEG) Urine Bilirubin NEG (NEG) Urine Urobilinogen POS (NEG) Urine Leukocyte Esterase TRACE (NEG) Urine WBC (Auto) 1-5 /hpf (0-5) Urine RBC (Auto) 0-4 /hpf (0-4) Urine Hyaline Casts (Auto) 5-10 /lpf (0-5) Urine Epithelial Cells (Auto) 10-20 /lpf (0-5) Urine Bacteria (Auto) NEG (NEG) Urine Opiates Screen NEG (NEG) Urine Methadone, Qualitative NEG (NEG) Urine Barbiturates NEG (NEG) Urine Phencyclidine (PCP) Level NEG (NEG) Ur Amphetamine/Methamphetamine NEG (NEG) MDMA (Ecstasy) Screen NEG (NEG) Urine Benzodiazepines Screen NEG (NEG) Urine Cocaine Metabolite NEG (NEG) Urine Marijuana (THC) NEG (NEG) Vitamin B12 Level 1054 pg/mL (211-911) Folate > 24.00 ng/mL (>5.38) Troponin I 0.175 ng/ml (0-0.045) Assessment and Plan 67 y/o M chronic smoker and alcohol use of 8 beers daily presented to ER with worsening fatigue, generalized weakness and report of hematuria times one week also with bilateral chest wall pain after having a fall when intoxicated 10 days ago noted to pneumonia in ED Pneumonia - possible aspiration vs. community acquired. risk factor of alcohol abuse for aspiration especially with right sided pneumonia however will also cover for atypicals - Switch antibiotics to Unasyn and azithromycin (MRSA nose swab negative) - Duonebs (emphysema noted on CT) - Flutter Valve + incentive spirometry + guaifenesin - Blood cultures pending Multiple Rib Fractures s/p fall - 1 week prior to admission - 4th-8th left ribs, 3rd-7th right ribs fractures - Pain control with Tylenol and oxycodone (PDMP searched and no Hx of prescription opiates) - Incentive Spirometry T12 fracture with mild retropulsion - no spinal cord symptoms noted on neurological examination - conservative management Elevated Troponin - supply/demand mismatch - Trending down - Appreciate cardiology recommendations - consider aspirin and statin as likely some underlying CAD - lipid profile tomorrow - Discuss with patient starting ASA tomorrow Alcohol Withdrawal - AWSS score 0 - Continue tapering libruin dosing as per protocol, IV ativan PRN - Continue thiamine 100 mg daily - Stop IVF as now eating and drinking Bowel Enteritis - incidental finding on CT - chronic intermittent diarrhea, no acute symptoms - will continue to monitor and will need outpatient follow up Complain of Discolored urine on presentation - No RBC in UA on admission - Check cpk VTE Prophylaxis - Heparin 5000 units SQ Q8H Code Status - Full Resuscitation Resident Tracking Resident Involvement: Resident Care Provided Care Provided: Adult Hospital Medicine Reviewed: Pt Seen/Exam by Me History c/o severe chest wall pain. unable to cough due to pain Constitutional: denies: fever Gastrointestinal/Abdominal: negative: abdominal pain General Appearance: mild distress (from pain) Respiratory: decreased breath sounds, rhonchi Cardiovascular: regular rate, rhythm Gastrointestinal: soft Neurologic/Psychiatric: alert, oriented x 3 Skin Characteristics: warm/dry Assessment/Plan Resident Physician Supervision Note: I independently interviewed and examined the patient and verified the jacob history and physical, reviewed labs and image studies, discussed the case with the resident Dr. Serrano and agree with the findings and care plan.
[2017-10-03] MEDS ORDERED: CYCLOBENZAPRINE HCL 5 MG TAB PO ONE (09:29)
[2017-10-03] MEDS: ASPIRIN 81 MG ECTAB PO SCH (09:34)
[2017-10-03] MEDS: NICOTINE 21 MG/24 HR TDSY TD SCH (09:34)
[2017-10-03] MEDS: ACETAMINOPHEN 325 MG TAB PO PRN ×2 (09:35→19:50)
[2017-10-03] MEDS ORDERED: VANCOMYCIN INJ 1,250 MG in SODIUM CHLORIDE 0.9% 250ML 250 ML IV SCH (10:00)
[2017-10-03] MEDS: OXYCODONE HCL IR 5 MG TAB (IMMEDIATE RELEASE) PO PRN ×3 (10:07→21:22)
[2017-10-03] MEDS ORDERED: LEVOFLOXACIN 750 MG TAB PO SCH (11:00)
[2017-10-03] MEDS ORDERED: VANCOMYCIN INJ 1,000 MG in SODIUM CHLORIDE 0.9% 250ML 250 ML IV SCH (12:00)
[2017-10-03] MEDS: NICOTINE POLACRILEX 2 MG GUM MT PRN (13:02)
[2017-10-03 13:20] LABS: BASO % 0.3 %; BASO ABS # 0.03 K/uL (0-0.2); EOS % 0.6 %; EOS ABS # 0.07 K/uL (0-0.5); HEMATOCRIT 33.8 % (42-52); HEMOGLOBIN 11.4 g/dL (14.0-18.0); IG# 0.04 K/uL (0.00-0.02); LYMPH % 12.7 %; LYMPH ABS # 1.46 K/uL (1.2-3.4); MEAN CELL VOLUME 98.3 fL (80-100); MEAN CORPUSCULAR HEMOGLOBIN 33.1 pg (25-34); MEAN CORPUSCULAR HGB CONC 33.7 g/dl (32-36); MEAN PLATELET VOLUME 8.9 fL (7.4-10.4); MONO % 7.7 %; MONO ABS # 0.89 K/uL (0.11-0.59); NEUT % 78.4 %; NEUT ABS # 9.04 K/uL (1.4-6.5); PLATELET COUNT 191 K/uL (130-400); RED CELL DISTRIBUTION WIDTH CV 12.9 % (11.5-14.5); RED CELL DISTRIBUTION WIDTH SD 46.2 fL (36.4-46.3); WHITE BLOOD COUNT 11.53 K/uL (4.8-10.8)
[2017-10-03 13:39] LABS: ALBUMIN 2.1 gm/dl (3.4-5.0); CALCIUM 7.6 mg/dl (8.5-10.1); CREATININE 0.58 mg/dl (0.60-1.40); POTASSIUM 3.4 mmol/L (3.5-5.1)
[2017-10-03] MEDS ORDERED: AZITHROMYCIN 250 MG TAB PO ONE (13:45)
[2017-10-03 13:50] LABS: TOTAL PROTEIN 5.4 gm/dl (6.4-8.2)
[2017-10-03] MEDS ORDERED: POTASSIUM CITRATE 10 MEQ TAB PO ONE (14:00)
[2017-10-03] MEDS ORDERED: POTASSIUM CHLORIDE 20 MEQ TABCR PO ONE (14:00)
--- NOTE | 2017-10-03 14:22 | CARDIOLOGY CONSULTATION ---
DATE OF CONSULTATION: 10/03/2017 DATE OF CONSULTATION: 10/03/2017 CONSULTATION REQUESTED BY: Dr. Johnson. REASON FOR CONSULTATION: Elevated troponin. HISTORY OF PRESENT ILLNESS: Mr. Sanchez is a 67-year-old man with a history of alcoholism who was admitted in the setting of fall, hematuria, found to have pneumonia and fractured ribs whom cardiology was consulted for due to elevated troponin. The patient lives by himself according to his friend "off the grid." More recently he has endorsed issues with blood in his urine as well as increased fatigue and some swelling in his lower extremities. Upon arrival, he had a chest x-ray that was consistent with a right lower lobe pneumonia for which he has been started on broad spectrum antibiotics. He also had a CT scan of his chest which confirmed multiple rib fractures. His initial presenting EKG showed sinus rhythm with questionable septal infarct and T-wave inversions anteriorly that was unchanged on serial EKGs. He had initial troponin that was positive at 0.214, subsequently went up to 0.234 and now 0.175. Remainder of labs remarkable for hyponatremia and UA suggestive of urinary tract infection. PAST MEDICAL HISTORY: History of alcoholism. Drinks approximately 8 beers per day, occasionally hard alcohol as well. Denies any other medical problems, does not see a doctor regularly. FAMILY HISTORY: No premature coronary disease or sudden cardiac . SOCIAL HISTORY: Current every day smoker, smokes pack per day. ALLERGIES: No known drug allergies. HOME MEDICATIONS: Aspirin 162 mg daily. REVIEW OF SYSTEMS: 10-point review of systems completed and otherwise negative unless stated in HPI. PHYSICAL EXAMINATION: VITAL SIGNS: Temperature 36.8, pulse 84, blood pressure 110/70. He is satting 98% on room air. GENERAL: The patient appears disheveled, but in no acute distress. He is resting comfortably. HEAD, EYES, EARS, NOSE, AND THROAT: His sclerae are anicteric. His oropharynx has poor dentition but his mucous membranes appear moist. NECK: Supple. LUNGS: Clear to auscultation bilaterally except for crackles at the right base. CARDIAC: Distant heart sounds, but was regular with no appreciable murmurs. ABDOMEN: Soft and nontender with positive bowel sounds. EXTREMITIES: Warm. He had intact pulses. He had trace edema in his feet but had 2+ distal pulses. SKIN: Shows no rashes or lesions. NEUROLOGIC: Nonfocal. LABORATORY DATA: Hemoglobin 11.4, platelets of 191. INR 1.0. Sodium 128, potassium 4.4, creatinine 0.6. Troponins as discussed above, but B12 and folate were within normal limits. Urine drug screen was negative. UA potentially consistent with UTI. IMAGING: CT scan of the abdomen showed compression deformity at T12 vertebrae. There was consolidation in the right middle and lower lobes. Chest CT showed fractures of the right 3rd and 7th ribs, fracture of the left 3rd and 8th ribs. No pneumothorax and right middle and lower lobe pneumonia. IMPRESSION AND PLAN: 1. Pneumonia. 2. Alcoholism. 3. Hyponatremia. 4. Possible urinary tract infection. 5. Elevated troponin. Mr. Sanchez is here with hematuria, recent fall, found to have multiple rib fractures and suspected pneumonia. As part of his workup had a troponin which was noted to be mildly elevated. The patient has been chest pain free and has multiple active noncardiac medical issues at this time. Suspicion for an acute coronary syndrome event is very low. Do not feel needs any additional testing at this time. Would continue on aspirin and possible statin as suspect that probably does have some degree of chronic coronary artery disease. In the future, a stress test could be considered as an outpatient, although it sounds as if the patient would be unlikely to follow up. At this time, recommend continued medical management of his active issues. Cardiology will sign off and please recontact if new issues present themselves. Thank you for consultation. VIV
[2017-10-03] MEDS: CYCLOBENZAPRINE HCL 5 MG TAB PO SCH ×2 (16:02→21:21)
[2017-10-03] MEDS: AMPICILLIN/SULBACTAM SOD INJ 3,000 MG in SODIUM CHLORIDE 0.9% 100ML 100 ML IV SCH ×2 (16:09→19:54)
[2017-10-03] MEDS ORDERED: GUAIFENESIN 600 MG TABCR PO ONE (21:26)
[2017-10-04] VITALS (12 sets, daily range): BP systolic 98–164; BP diastolic 70–98; PULSE 80–121; TEMP 36.7–37.2; O2SAT 91–100
[2017-10-04] MEDS: SODIUM CHLORIDE 0.9% 1000ML 1,000 ML IV SCH ×3 (02:45→22:09)
[2017-10-04] MEDS: OXYCODONE HCL IR 5 MG TAB (IMMEDIATE RELEASE) PO PRN ×4 (04:07→16:57)
[2017-10-04] MEDS: AMPICILLIN/SULBACTAM SOD INJ 3,000 MG in SODIUM CHLORIDE 0.9% 100ML 100 ML IV SCH ×4 (04:07→22:08)
[2017-10-04] MEDS: THIAMINE HCL INJ 100 MG in SYRINGE 9 ML IV SCH (04:08)
[2017-10-04] MEDS: HEPARIN SOD 5000 UNIT/0.5 ML CARP SQ SCH ×3 (06:00→22:00)
[2017-10-04] MEDS: CHLORDIAZEPOXIDE 50MG 2ND DOSE PO SCH ×4 (06:11→22:00)
[2017-10-04] MEDS: ALBUT/IPRATROP 3MG/0.5MG NEB 3 ML VIAL INH SCH ×3 (07:24→19:54)
[2017-10-04 07:40] LABS: BASO % 0.4 %; BASO ABS # 0.04 K/uL (0-0.2); EOS % 1.7 %; EOS ABS # 0.16 K/uL (0-0.5); HEMATOCRIT 35.1 % (42-52); HEMOGLOBIN 11.5 g/dL (14.0-18.0); IG# 0.07 K/uL (0.00-0.02); LYMPH % 14.5 %; MEAN CELL VOLUME 100.9 fL (80-100); MEAN CORPUSCULAR HGB CONC 32.8 g/dl (32-36); MONO % 13.6 %; MONO ABS # 1.32 K/uL (0.11-0.59); NEUT % 69.1 %; NEUT ABS # 6.69 K/uL (1.4-6.5); PLATELET COUNT 192 K/uL (130-400); RED CELL DISTRIBUTION WIDTH CV 13.1 % (11.5-14.5); RED CELL DISTRIBUTION WIDTH SD 47.6 fL (36.4-46.3); WHITE BLOOD COUNT 9.68 K/uL (4.8-10.8)
[2017-10-04 08:11] LABS: CALCIUM 7.8 mg/dl (8.5-10.1); CREATININE 0.42 mg/dl (0.60-1.40); POTASSIUM 3.9 mmol/L (3.5-5.1)
[2017-10-04] MEDS: CYCLOBENZAPRINE HCL 5 MG TAB PO SCH ×3 (08:24→21:56)
[2017-10-04] MEDS: AZITHROMYCIN 250 MG TAB PO SCH (08:25)
[2017-10-04] MEDS: ASPIRIN 81 MG ECTAB PO SCH (08:25)
[2017-10-04] MEDS: GUAIFENESIN 600 MG TABCR PO SCH ×2 (08:26→21:56)
[2017-10-04] MEDS: NICOTINE 21 MG/24 HR TDSY TD SCH (08:26)
[2017-10-04] MEDS: NICOTINE POLACRILEX 2 MG GUM MT PRN (08:27)
[2017-10-04] MEDS: LORAZEPAM 2 MG/ML 1 ML VIAL IV PRN ×2 (08:33→12:36)
--- NOTE | 2017-10-04 11:57 | Family Medicine Progress Note ---
Progress Note Date of Service Oct 04, 2017. Subjective Pt evaluation today including: conversation w/ patient, physical exam, chart review, lab review Pain: Midsternal chest pain to palpation and deep breathing Voiding: no voiding problems Notes he slept well last night Notes last drink was 48 hours ago Notes chest pain worse with palpation and deep breathing Denies any nausea or vomiting Denies feeling agitated or restless; denies tremors Constitutional: No fever, No chills, No sweats, No weight loss Eyes: No worsening of vision, No redness, No discharge ENT: No hearing loss, No nasal symptoms, No sore throat Respiratory: No cough, No sputum, No wheezing, No shortness of breath Cardiovascular: + chest pain, No palpitations Abdomen: No pain, No nausea, No vomiting, No diarrhea, No constipation Musculoskeletal: + problem reported (bilateral rib pain to palpation), No joint pain, No muscle pain Male : No dysuria, No incontinence Neurologic: No weakness, No numbness/tingling, No vertigo Heme: No abnormal bleeding/bruising, No night sweats Endo: No excessive thirst Skin: No rash, No new/changing skin lesions, No color change Medications Current Inpatient Medications Medications (Trade) Dose Ordered Sig/Jacklyn Route Start Time Stop Time Status Last Admin Dose Admin Ioversol (Optiray 320) 111 ml UD PRN IV 10/02/17 22:00 10/06/17 21:59 Sodium Chloride 1,000 ml @ 100 mls/hr Q10H IV 10/03/17 06:00 11/02/17 05:59 10/04/17 02:45 100 MLS/HR Thiamine HCl 100 mg/Syringe 10 ml @ 2 mls/min Q24H IV 10/03/17 03:00 11/02/17 02:59 10/04/17 04:08 2 MLS/MIN Lorazepam (Ativan Inj) PRN Dosing -Active Protocol Q1H PRN IV 10/03/17 02:30 11/02/17 02:29 10/04/17 08:33 1 MG Acetaminophen (Tylenol Tab) 650 mg Q4H PRN PO 10/03/17 02:30 11/02/17 02:29 10/03/17 19:50 650 MG Magnesium Hydroxide (Milk Of Magnesia Susp) 30 ml Q12H PRN PO 10/03/17 02:30 2/11/18 02:29 Ondansetron HCl (Zofran Inj) 4 mg Q6H PRN IV 10/03/17 02:30 11/02/17 02:29 Aspirin (Ecotrin Tab) 81 mg QAM PO 10/03/17 09:00 11/02/17 08:59 10/04/17 08:25 81 MG Nicotine (Nicoderm Cq 21MG Patch) 1 patch QAM TD 10/03/17 09:00 11/02/17 08:59 10/04/17 08:26 1 PATCH Miscellaneous (Remove Nicoderm Patch) 1 ea HS N/A 10/03/17 21:00 11/02/17 20:59 10/03/17 19:51 1 EA Albuterol/ Ipratropium (Duoneb) 3 ml QIDR INH 10/03/17 08:00 11/02/17 07:59 10/04/17 11:30 3 ML Chlordiazepoxide (Librium Cap) 50 mg Q8H PO 10/04/17 06:00 10/04/17 22:01 10/04/17 06:11 50 MG Chlordiazepoxide (Librium Cap) 25 mg Q8H PO 10/05/17 06:00 10/05/17 22:01 Chlordiazepoxide (Librium Cap) 10 mg Q12H PO 10/06/17 10:00 10/06/17 22:01 Heparin Sodium (Porcine) (Heparin Sq 5000 Unit/0.5ml) 5,000 unit Q8 SQ 10/03/17 06:00 11/02/17 05:59 Nicotine Polacrilex (Nicorette 2MG Gum) 1 piece PRN PRN MT 10/03/17 09:00 11/02/17 08:59 10/04/17 08:27 1 PIECE Oxycodone HCl (Roxicodone Immediate Rel Tab) 5 mg Q4H PRN PO 10/03/17 09:30 10/17/17 09:29 10/04/17 08:27 5 MG Cyclobenzaprine HCl (Flexeril Tab) 5 mg TID PO 10/03/17 14:00 11/02/17 13:59 10/04/17 08:24 5 MG Ampicillin Sodium/ Sulbactam Sodium 3000 mg/Sodium Chloride 108 ml @ 200 mls/hr Q6H IV 10/03/17 16:00 10/08/17 15:59 10/04/17 08:33 200 MLS/HR Azithromycin (Zithromax Tab) 250 mg QAM PO 10/04/17 09:00 10/07/17 08:59 10/04/17 08:25 250 MG Guaifenesin (Mucinex Contr Rel Tab) 1,200 mg Q12 PO 10/04/17 09:00 11/03/17 08:59 10/04/17 08:26 1,200 MG Objective Vital Signs Date Time Temp Pulse Resp B/P (MAP) Pulse Ox O2 Delivery O2 Flow Rate FiO2 10/04/17 11:30 89 18 97 Nasal Cannula 4.0 10/04/17 08:00 98 Nasal Cannula 4.0 10/04/17 07:46 37.2 80 22 116/79 (91) 98 Nasal Cannula 4.0 10/04/17 07:24 82 18 98 Nasal Cannula 4.0 10/04/17 04:00 Nasal Cannula 3.0 10/04/17 03:37 37.0 94 22 118/81 (93) 100 Nasal Cannula 4.0 10/04/17 00:00 Nasal Cannula 3.0 10/03/17 23:35 36.7 91 23 120/77 (91) 98 Nasal Cannula 4.0 10/03/17 20:00 Nasal Cannula 3.0 10/03/17 19:55 79 18 98 Nasal Cannula 4.0 10/03/17 19:15 36.8 86 18 115/77 (90) 99 Nasal Cannula 3.0 10/03/17 16:00 Nasal Cannula 10/03/17 15:32 37.1 96 19 121/83 (96) 97 Nasal Cannula 2.0 10/03/17 15:08 78 18 94 Room Air 10/03/17 12:00 Nasal Cannula 2.0 Physical Exam General Appearance: WD/WN, no apparent distress, + pertinent finding (fatigued appearing) Eyes: normal inspection, EOMI ENT: hearing grossly normal, pharynx normal Neck: supple, no adenopathy, no JVD Respiratory/Chest: no accessory muscle use, + decreased breath sounds, + pertinent finding (chest tenderness bilaterally; end-expiratory wheezing) Cardiovascular: regular rate, rhythm, no gallop, no murmur Abdomen: normal bowel sounds, non tender, soft Extremities: non-tender, no pedal edema Neurologic/Psychiatric: alert, normal mood/affect, oriented x 3 Skin: normal color, warm/dry, no rash Lymphatic: no adenopathy Laboratory Results Last 24 Hours Test 10/03/17 13:00 10/04/17 07:29 White Blood Count 11.53 K/uL 9.68 K/uL Red Blood Count 3.44 M/uL 3.48 M/uL Hemoglobin 11.4 g/dL 11.5 g/dL Hematocrit 33.8 % 35.1 % Mean Corpuscular Volume 98.3 fL 100.9 fL Mean Corpuscular Hemoglobin 33.1 pg 33.0 pg Mean Corpuscular Hemoglobin Concent 33.7 g/dl 32.8 g/dl Platelet Count 191 K/uL 192 K/uL Mean Platelet Volume 8.9 fL 9.0 fL Neutrophils (%) (Auto) 78.4 % 69.1 % Lymphocytes (%) (Auto) 12.7 % 14.5 % Monocytes (%) (Auto) 7.7 % 13.6 % Eosinophils (%) (Auto) 0.6 % 1.7 % Basophils (%) (Auto) 0.3 % 0.4 % Neutrophils # (Auto) 9.04 K/uL 6.69 K/uL Lymphocytes # (Auto) 1.46 K/uL 1.40 K/uL Monocytes # (Auto) 0.89 K/uL 1.32 K/uL Eosinophils # (Auto) 0.07 K/uL 0.16 K/uL Basophils # (Auto) 0.03 K/uL 0.04 K/uL RDW Standard Deviation 46.2 fL 47.6 fL RDW Coefficient of Variation 12.9 % 13.1 % Immature Granulocyte % (Auto) 0.3 % 0.7 % Immature Granulocyte # (Auto) 0.04 K/uL 0.07 K/uL Sodium Level 134 mmol/L 134 mmol/L Potassium Level 3.4 mmol/L 3.9 mmol/L Chloride Level 102 mmol/L 101 mmol/L Carbon Dioxide Level 28 mmol/L 29 mmol/L Anion Gap 4.0 mmol/L 4.0 mmol/L Blood Urea Nitrogen 9 mg/dl 6 mg/dl Creatinine 0.58 mg/dl 0.42 mg/dl Est Creatinine Clear Calc Drug Dose 127.6 ml/min 176.2 ml/min Estimated GFR () 122.3 139.6 Estimated GFR (Non- 105.5 120.5 BUN/Creatinine Ratio 16.4 14.4 Random Glucose 143 mg/dl 127 mg/dl Calcium Level 7.6 mg/dl 7.8 mg/dl Total Bilirubin 0.5 mg/dl Aspartate Amino Transf (AST/SGOT) 17 U/L Alanine Aminotransferase (ALT/SGPT) 16 U/L Alkaline Phosphatase 50 U/L Troponin I 0.119 ng/ml Total Protein 5.4 gm/dl Albumin 2.1 gm/dl Globulin 3.3 gm/dl Albumin/Globulin Ratio 0.6 Total Creatine Kinase 29 U/L Triglycerides Level 54 mg/dl Cholesterol Level 74 mg/dl HDL Cholesterol 37 mg/dl LDL Cholesterol, Calculated 26 mg/dl VLDL Cholesterol, Calculated 11 mg/dl Cholesterol/HDL Ratio 2.0 Assessment and Plan (2) Pneumonia Assessment & Plan: - Continue Unasyn for aspiration coverage - Continue Azithromycin for coverage atypicals - Recommend de-escalating to Augmentin when patient is ready for discharge - Continue Mucinex - Patient remains hypoxic at 4L NC; no home O2; continue to wean as tolerated May require evaluation for home O2 if requirements do not drop - Flutter valve and Incentive Spirometry (3) Multiple fractures of ribs of both sides Status: Acute Assessment & Plan: - As noted on admission CT - Continue Oxycodone q 4 hours - Continue incentive spirometry - Pain management consulted (4) T12 vertebral fracture Assessment & Plan: - Pain management as per rib fractures (6) Emphysema of lung Assessment & Plan: - Continue PRN Duoneb (1) Alcohol abuse Assessment & Plan: - Currently AWSS On Librium taper Ativan PRN for breakthrough - Continue Thamine (7) Hyponatremia Assessment & Plan: - Improved today to 134 - May be chronic due to alcohol abuse history (8) Elevated troponin I level Assessment & Plan: - Troponin trending down - Last troponin done yesterday - Given reproducible nature of chest pain, current pain likely due to rib fractures - Continue ASA, started today - Lipid panel grossly normal; [place] risk could not be calculated due to very low total cholesterol Reported hematuria on admission - UA negative for blood; CPK normal (5) Tobacco abuse Assessment & Plan: - Nicotine patch - Nicorette gum DVT Prophylaxis - SCD Knee, VENKATA Hose - Heparin 5000 U s.c. TID Code Status - Level I Full Code Disposition - Telemetry - OT and PT evaluations Continued [facility] stay due to: ambulation difficulties, other (alcohol withdrawal) Discharge planning: uncertain Continued [facility] stay due to: ambulation difficulties, other (alcohol withdrawal) Discharge planning: uncertain Reviewed: Pt Seen/Exam by Me History breathing is better. chest wall pain from fracture + Constitutional: denies: fever Gastrointestinal/Abdominal: negative: abdominal pain General Appearance: no apparent distress (just received dose of lorazepam) Respiratory: no respiratory distress, decreased breath sounds Cardiovascular: regular rate, rhythm Neurologic/Psychiatric: other (sedated from lorazepam) Skin Characteristics: warm/dry Assessment/Plan Resident Physician Supervision Note: I independently interviewed and examined the patient and verified the jacob history and physical, reviewed labs and image studies, discussed the case with the resident Dr. Alves and agree with the findings and care plan.
[2017-10-05] VITALS (13 sets, daily range): BP systolic 116–143; BP diastolic 51–90; PULSE 77–96; TEMP 36.6–37.5; O2SAT 91–100
[2017-10-05] MEDS ORDERED: CHLORDIAZEPOXIDE 25 MG CAP ONE (00:37)
[2017-10-05] MEDS: CHLORDIAZEPOXIDE 50MG 2ND DOSE PO SCH (00:39)
[2017-10-05] MEDS: THIAMINE HCL INJ 100 MG in SYRINGE 9 ML IV SCH (02:54)
[2017-10-05] MEDS: OXYCODONE HCL IR 5 MG TAB (IMMEDIATE RELEASE) PO PRN ×4 (02:54→23:47)
[2017-10-05] MEDS: AMPICILLIN/SULBACTAM SOD INJ 3,000 MG in SODIUM CHLORIDE 0.9% 100ML 100 ML IV SCH ×4 (03:56→21:41)
[2017-10-05] MEDS: CHLORDIAZEPOXIDE 25MG 3RD DOSE PO SCH ×3 (06:00→21:41)
[2017-10-05] MEDS: HEPARIN SOD 5000 UNIT/0.5 ML CARP SQ SCH ×3 (06:30→21:37)
[2017-10-05] MEDS: ALBUT/IPRATROP 3MG/0.5MG NEB 3 ML VIAL INH SCH ×4 (08:00→20:12)
[2017-10-05 08:03] LABS: HEMATOCRIT 35.7 % (42-52); HEMOGLOBIN 11.6 g/dL (14.0-18.0); MEAN CELL VOLUME 100.8 fL (80-100); MEAN CORPUSCULAR HEMOGLOBIN 32.8 pg (25-34); MEAN CORPUSCULAR HGB CONC 32.5 g/dl (32-36); MEAN PLATELET VOLUME 8.8 fL (7.4-10.4); PLATELET COUNT 231 K/uL (130-400); RED CELL DISTRIBUTION WIDTH CV 12.6 % (11.5-14.5); RED CELL DISTRIBUTION WIDTH SD 46.6 fL (36.4-46.3); WHITE BLOOD COUNT 9.31 K/uL (4.8-10.8)
[2017-10-05] MEDS: SODIUM CHLORIDE 0.9% 1000ML 1,000 ML IV SCH (08:22)
[2017-10-05 08:37] LABS: CALCIUM 8.2 mg/dl (8.5-10.1); CREATININE 0.36 mg/dl (0.60-1.40); POTASSIUM 3.8 mmol/L (3.5-5.1)
[2017-10-05] MEDS: NICOTINE 21 MG/24 HR TDSY TD SCH (08:45)
[2017-10-05] MEDS: ASPIRIN 81 MG ECTAB PO SCH (08:45)
[2017-10-05] MEDS: AZITHROMYCIN 250 MG TAB PO SCH (08:46)
[2017-10-05] MEDS: CYCLOBENZAPRINE HCL 5 MG TAB PO SCH ×3 (08:47→20:45)
[2017-10-05] MEDS: GUAIFENESIN 600 MG TABCR PO SCH ×2 (08:48→20:45)
[2017-10-05] MEDS ORDERED: OXYCODONE HCL IR 5 MG TAB (IMMEDIATE RELEASE) PO SCH (12:00)
--- NOTE | 2017-10-05 13:38 | Family Medicine Progress Note ---
Progress Note Date of Service Oct 05, 2017. Subjective Pt evaluation today including: conversation w/ patient, physical exam, chart review, lab review Pain: 5/10 at rest 8/10 with any movement Voiding: no voiding problems, no incontinence Friend Herrera is at the bedside Patient reports chest pain due to rib fractures Refusing to participate with PT due to fractures Notes he slept well overnight Night team sign out that patient was refusing Librium dose last night; informed by nursing at bedside that the friend had refused Librium on patient's behalf. Constitutional: No sweats Eyes: No eye pain, No redness, No discharge ENT: No unusual epistaxis, No nasal symptoms, No sore throat Respiratory: + cough, + sputum, + shortness of breath Cardiovascular: + chest pain, No orthopnea, No palpitations Abdomen: No pain, No nausea, No vomiting, No diarrhea, No constipation Musculoskeletal: No joint pain, No muscle pain Male : No dysuria, No urinary frequency Neurologic: No weakness, No numbness/tingling Heme: No clotting problems, No swollen lymph nodes Skin: No rash, No new/changing skin lesions, No color change Medications Current Inpatient Medications Medications (Trade) Dose Ordered Sig/Jacklyn Route Start Time Stop Time Status Last Admin Dose Admin Ioversol (Optiray 320) 111 ml UD PRN IV 10/02/17 22:00 10/06/17 21:59 Sodium Chloride 1,000 ml @ 100 mls/hr Q10H IV 10/03/17 06:00 11/02/17 05:59 10/05/17 08:22 100 MLS/HR Thiamine HCl 100 mg/Syringe 10 ml @ 2 mls/min Q24H IV 10/03/17 03:00 11/02/17 02:59 10/05/17 02:54 2 MLS/MIN Lorazepam (Ativan Inj) PRN Dosing -Active Protocol Q1H PRN IV 10/03/17 02:30 11/02/17 02:29 10/04/17 12:36 1 MG Acetaminophen (Tylenol Tab) 650 mg Q4H PRN PO 10/03/17 02:30 11/02/17 02:29 10/03/17 19:50 650 MG Magnesium Hydroxide (Milk Of Magnesia Susp) 30 ml Q12H PRN PO 10/03/17 02:30 11/02/17 02:29 Ondansetron HCl (Zofran Inj) 4 mg Q6H PRN IV 10/03/17 02:30 11/02/17 02:29 Aspirin (Ecotrin Tab) 81 mg QAM PO 10/03/17 09:00 11/02/17 08:59 10/05/17 08:45 81 MG Nicotine (Nicoderm Cq 21MG Patch) 1 patch QAM TD 10/03/17 09:00 11/02/17 08:59 10/05/17 08:45 1 PATCH Miscellaneous (Remove Nicoderm Patch) 1 ea HS N/A 10/03/17 21:00 11/02/17 20:59 10/04/17 21:00 1 EA Albuterol/ Ipratropium (Duoneb) 3 ml QIDR INH 10/03/17 08:00 11/02/17 07:59 10/05/17 11:16 3 ML Chlordiazepoxide (Librium Cap) 25 mg Q8H PO 10/05/17 06:00 10/05/17 22:01 Chlordiazepoxide (Librium Cap) 10 mg Q12H PO 10/06/17 10:00 10/06/17 22:01 Heparin Sodium (Porcine) (Heparin Sq 5000 Unit/0.5ml) 5,000 unit Q8 SQ 10/03/17 06:00 11/02/17 05:59 10/05/17 06:30 5,000 UNIT Nicotine Polacrilex (Nicorette 2MG Gum) 1 piece PRN PRN MT 10/03/17 09:00 11/02/17 08:59 10/04/17 08:27 1 PIECE Oxycodone HCl (Roxicodone Immediate Rel Tab) 5 mg Q4H PRN PO 10/03/17 09:30 10/17/17 09:29 10/05/17 08:43 5 MG Cyclobenzaprine HCl (Flexeril Tab) 5 mg TID PO 10/03/17 14:00 11/02/17 13:59 10/05/17 08:47 5 MG Ampicillin Sodium/ Sulbactam Sodium 3000 mg/Sodium Chloride 108 ml @ 200 mls/hr Q6H IV 10/03/17 16:00 10/08/17 15:59 10/05/17 08:22 200 MLS/HR Azithromycin (Zithromax Tab) 250 mg QAM PO 10/04/17 09:00 10/07/17 08:59 10/05/17 08:46 250 MG Guaifenesin (Mucinex Contr Rel Tab) 1,200 mg Q12 PO 10/04/17 09:00 11/03/17 08:59 10/05/17 08:48 1,200 MG Oxycodone HCl (Roxicodone Immediate Rel Tab) 10 mg 1200 PO 10/05/17 12:00 10/05/17 15:00 Objective Vital Signs Date Time Temp Pulse Resp B/P (MAP) Pulse Ox O2 Delivery O2 Flow Rate FiO2 10/05/17 11:16 95 18 94 Nasal Cannula 3.0 10/05/17 11:11 36.8 94 22 135/84 (101) 100 Nasal Cannula 2.0 10/05/17 07:37 36.7 96 21 135/90 (105) 94 Nasal Cannula 2.0 10/05/17 04:00 Nasal Cannula 2.0 10/05/17 03:29 36.7 95 22 116/77 (90) 93 Nasal Cannula 1.5 10/05/17 00:00 95 Nasal Cannula 2.0 10/04/17 23:24 36.7 103 18 138/90 (106) 95 Nasal Cannula 2.0 10/04/17 20:00 95 Nasal Cannula 2.0 10/04/17 19:56 104 18 96 Nasal Cannula 2.0 10/04/17 19:48 36.7 103 20 123/85 (98) 95 Nasal Cannula 2.0 10/04/17 16:00 Nasal Cannula 2.0 10/04/17 15:34 37.0 87 20 98/70 (79) 97 Nasal Cannula 2.0 Physical Exam General Appearance: WD/WN, no apparent distress Eyes: normal inspection, EOMI ENT: hearing grossly normal, pharynx normal Neck: supple, no adenopathy, no JVD Respiratory/Chest: + pertinent finding (Bilateral rib tenderness; diminished breath sounds bilateally with expiratory wheezing) Cardiovascular: regular rate, rhythm, no gallop, no murmur Abdomen: normal bowel sounds, non tender, soft Extremities: non-tender, no pedal edema Neurologic/Psychiatric: alert, oriented x 3, + depressed affect Skin: normal color, warm/dry, no rash Lymphatic: no adenopathy Assessment and Plan 67 year old male with alcoholism and recent fall presenting with hematuria on admission and found incidentally to have ribs fractures bilaterally. He also has a pneumonia (aspiration vs community acquired) which were are treating. He is not acutely withdrawing at this time but has Librium taper on board for this. Pneumonia, aspiration vs community-acquired - Continue Unasyn and Azithromycin for atypical and anaerobic coverage ( aspiration risk) - Continue Mucinex - Patient down to 2 L by NC - Flutter valve and Incentive Spirometry Multiple fractures of ribs bilaterally - s/p recent fall - As noted on admission CT - Continue Oxycodone q 4 hours Will give total of 10 mg Oxycodone pre-PT today so patient tolerates activity out of bed - Continue incentive spirometry - Pain management consulted T12 vertebral fracture - Pain management as per rib fractures Emphysema of lung - Continue PRN Duoneb Alcohol abuse - Currently AWSS with Librium Taper - Ativan to be discontinued due to profound sedation - Continue Thamine - Children note patient is extremely depressed at home; lives alone; drinks morning to nighttime - Has stated to nursing that he has been depressed since of cervical cancer - Mental status needs to be assessed once he is out of the window of acute alcohol withdrawal; likely in the next 24-48 hours - Consider involvement of psychiatry Hyponatremia - Improved today to 135; continue to monitor - Likely chronic from alcohol use Elevated troponin I level - Troponin trending down - Given reproducible nature of chest pain, current pain likely due to rib fractures - Continue ASA, started today - Lipid panel grossly normal; [place] risk could not be calculated due to very low total cholesterol - Cardiology has seen and signed off on patient; unlikely ACS but patient likely has underlying atherosclerotic disease ASA started; will hold off on Statin at this time Recommendations appreciated Reported hematuria on admission - UA negative for blood; CPK normal Tobacco abuse - Nicotine patch - Nicorette gum DVT Prophylaxis - SCD Knee, VENKATA Hose - Heparin 5000 U s.c. TID Code Status - Level I Full Code Disposition - Telemetry - OT and PT evaluations - Has at-length conversation with family members today 1 son and 2 daughters. They have expressed concern that father will be taken advantage of financially and manipulated by friend Herrera who is constantly at bedside. Nursing notes that patient was requesting treatment information and refusing medications on behalf of the patients. Children think that Herrera is bad influence and is encouraged by him to drink. He is always at his home drinking with him. Apparently was with father when he had his initial fall days before being admitted. Children would like to know whether he can be banned from visiting or having any involvement with Mr. Sanchez both inside and outside the hospital. I explained to them that Mr. Sanchez is alert and oriented and from my assessment has capacity at this point in time to make his own decisions. If he wants Herrera to be present at the bedside that is a decision that we need to respect his wishes. Myself and the nurse did encourage the patient to provide a new code word whereby information about his care could be disseminated to his children and not Herrera. Children expressed concern that Herrera would manipulate father into telling him the code word. The family plans to have private meeting with patient today and will decide who of the 3 will be primary point of contact. The patient would benefit from rehab as a starting point so we will get the initial assessments started for that. Regarding plans after that, we will discuss with the patient whether he would be amenable to live with one of his children as he [place] electricity. Care in this setting would not be feasible, particularly if he needs regular PCP follow-ups and potentially goes home on oxygen. Continued [facility] stay due to: inadequate oral pain control, ambulation difficulties Discharge planning: uncertain Reviewed: Pt Seen/Exam by Me History breathing is better unable to cough much due to pain. Constitutional: denies: fever Respiratory: negative: short of breath General Appearance: no apparent distress Respiratory: no respiratory distress, decreased breath sounds (base) Cardiovascular: regular rate, rhythm Neurologic/Psychiatric: oriented x 3, other (somnolent but easily arousable) Assessment/Plan Resident Physician Supervision Note: I independently interviewed and examined the patient and verified the jacob history and physical, reviewed labs and image studies, discussed the case with the resident Dr. Alves and agree with the findings and care plan.
[2017-10-06] VITALS (13 sets, daily range): BP systolic 115–152; BP diastolic 79–95; PULSE 84–98; TEMP 36.3–37.3; O2SAT 92–99; Ht 177.8 cm; Wt 70.1 kg
[2017-10-06] MEDS: THIAMINE HCL INJ 100 MG in SYRINGE 9 ML IV SCH (03:27)
[2017-10-06] MEDS: AMPICILLIN/SULBACTAM SOD INJ 3,000 MG in SODIUM CHLORIDE 0.9% 100ML 100 ML IV SCH ×4 (03:48→21:00)
[2017-10-06] MEDS: OXYCODONE HCL IR 5 MG TAB (IMMEDIATE RELEASE) PO PRN ×4 (03:54→18:13)
[2017-10-06] MEDS: HEPARIN SOD 5000 UNIT/0.5 ML CARP SQ SCH ×3 (06:04→21:07)
[2017-10-06 06:50] LABS: HEMATOCRIT 35.6 % (42-52); HEMOGLOBIN 11.6 g/dL (14.0-18.0); MEAN CELL VOLUME 101.1 fL (80-100); MEAN CORPUSCULAR HGB CONC 32.6 g/dl (32-36); MEAN PLATELET VOLUME 8.8 fL (7.4-10.4); PLATELET COUNT 237 K/uL (130-400); RED CELL DISTRIBUTION WIDTH CV 12.9 % (11.5-14.5); RED CELL DISTRIBUTION WIDTH SD 47.6 fL (36.4-46.3); WHITE BLOOD COUNT 7.95 K/uL (4.8-10.8)
[2017-10-06] MEDS: ALBUT/IPRATROP 3MG/0.5MG NEB 3 ML VIAL INH SCH ×4 (07:15→19:35)
[2017-10-06 07:25] LABS: CALCIUM 8.3 mg/dl (8.5-10.1); CREATININE 0.38 mg/dl (0.60-1.40); POTASSIUM 3.9 mmol/L (3.5-5.1)
--- NOTE | 2017-10-06 07:45 | Family Medicine Progress Note ---
Progress Note Date of Service Oct 06, 2017. Subjective Pt evaluation today including: conversation w/ patient, physical exam, chart review, lab review, review of studies, conversation w/ customer care consultant, review of inpatient medication list Patient sleepy but arousable and answers appropriately. He states ongoing chest pain on the sides bilaterally, which improves with analgesia. He is not ambulating significantly secondary to pain. He has not had a bowel movement in days, and declined fleet agreeing for another day of prune juice and other constipation medications. He otherwise denies fevers/chills, dyspnea, abdominal pain. unable to attain a more detailed ROS except as noted above due to patient falling back to sleep. Objective Vital Signs Date Time Temp Pulse Resp B/P (MAP) Pulse Ox O2 Delivery O2 Flow Rate FiO2 10/06/17 07:15 89 18 97 Nasal Cannula 3.0 10/06/17 04:00 99 Nasal Cannula 3.0 10/06/17 03:40 37.1 89 20 152/95 (114) 99 Nasal Cannula 3.0 10/06/17 02:15 115/79 (91) 10/06/17 00:00 97 Nasal Cannula 3.0 10/05/17 23:35 37.0 89 23 135/86 (102) 97 Nasal Cannula 3.0 10/05/17 20:16 85 18 93 Mask 3.0 10/05/17 20:00 97 Oxymask 3.0 10/05/17 19:08 37.5 94 17 143/90 (107) 97 Oxymask 3.0 10/05/17 16:00 Nasal Cannula 2.0 10/05/17 15:35 94 18 95 Nasal Cannula 3.0 10/05/17 15:06 36.7 91 19 126/86 (99) 97 Nasal Cannula 2.0 10/05/17 12:00 Nasal Cannula 2.0 10/05/17 11:19 36.6 77 20 117/51 (73) 91 Nasal Cannula 2.0 10/05/17 11:16 95 18 94 Nasal Cannula 3.0 10/05/17 11:11 36.8 94 22 135/84 (101) 100 Nasal Cannula 2.0 10/05/17 08:00 Nasal Cannula 2.0 Physical Exam General Appearance: WD/WN, no apparent distress Eyes: normal inspection ENT: hearing grossly normal Respiratory/Chest: normal breath sounds, no respiratory distress, no accessory muscle use Cardiovascular: regular rate, rhythm, no murmur Abdomen: normal bowel sounds, non tender, + distended Extremities: normal inspection, no pedal edema Neurologic/Psychiatric: + depressed affect, + pertinent finding (sleepy) Skin: normal color, warm/dry, no rash Laboratory Results Results Past 24 Hours Test 10/06/17 06:36 Range/Units White Blood Count 7.95 4.8-10.8 K/uL Red Blood Count 3.52 4.7-6.1 M/uL Hemoglobin 11.6 14.0-18.0 g/dL Hematocrit 35.6 42-52 % Mean Corpuscular Volume 101.1 80-100 fL Mean Corpuscular Hemoglobin 33.0 25-34 pg Mean Corpuscular Hemoglobin Concent 32.6 32-36 g/dl RDW Standard Deviation 47.6 36.4-46.3 fL RDW Coefficient of Variation 12.9 11.5-14.5 % Platelet Count 237 130-400 K/uL Mean Platelet Volume 8.8 7.4-10.4 fL Sodium Level 136 136-145 mmol/L Potassium Level 3.9 3.5-5.1 mmol/L Chloride Level 96 98-107 mmol/L Carbon Dioxide Level 36 21-32 mmol/L Anion Gap 4.0 3-11 mmol/L Blood Urea Nitrogen 5 7-18 mg/dl Creatinine 0.38 0.60-1.40 mg/dl Est Creatinine Clear Calc Drug Dose 194.8 ml/min Estimated GFR () 145.5 Estimated GFR (Non- 125.5 BUN/Creatinine Ratio 13.3 10-20 Random Glucose 97 70-99 mg/dl Calcium Level 8.3 8.5-10.1 mg/dl Assessment and Plan 67 year old male with alcoholism and recent fall presenting with hematuria on admission and found incidentally to have ribs fractures bilaterally. He also has a pneumonia (aspiration vs community acquired). He is not acutely withdrawing at this time but has Librium taper on board for this. Pneumonia, aspiration vs community-acquired with acute hypoxic resp failure - Transition from IV Unasyn to PO Augmentin and continue PO Azithromycin for atypical and anaerobic coverage (aspiration risk) - day 4 - O2 via NC, wean as tolerated, keep sats >92% - Continue Mucinex - Encourage use of flutter valve and incentive spirometry Multiple fractures of ribs bilaterally - s/p recent fall - as noted on admission CT - Continue Oxycodone q4h - Encourage use of incentive spirometry - Pain management consulted, recs appreciated T12 vertebral fracture - Pain management as per rib fractures Emphysema of lung - Continue PRN Duoneb Alcohol abuse - Currently AWSS with Librium taper - reduced to 5mg today - Ativan discontinued due to profound sedation - Continue PO thaminine ?Depression- Children note patient is extremely depressed at home; lives alone; drinks morning to nighttime. Has stated to nursing that he has been depressed since of cervical cancer - Mental status needs to be assessed once he is out of the window of acute alcohol withdrawal and once less sedated; likely in the next 24-48 hours - Will consider involvement of psychiatry Hyponatremia - Likely chronic from alcohol use - Resolved today - Na 136; continue to monitor Elevated troponin I level Given reproducible nature of chest pain, current pain likely due to rib fractures rather than ACS. Trending down. Lipid panel grossly normal; [place] risk could not be calculated due to very low total cholesterol. Cardiology has seen and signed off on patient; unlikely ACS but patient likely has underlying atherosclerotic disease. Recs appreciated - Continue ASA Reported hematuria on admission - UA negative for blood; CPK normal Tobacco abuse - Nicotine patch and Nicorette gum DVT Prophylaxis - SCD Knee, VENKATA Hose - Heparin 5000 U SC q8h Code Status - Level I Full Code Disposition - Telemetry - OT and PT evaluations - Discharge setting uncertain currently Continued [facility] stay due to: inadequate oral pain control, home environment unsafe for pt Discharge planning: uncertain Resident Tracking Resident Involvement: Resident Care Provided Care Provided: Adult Hospital Medicine Reviewed: Pt Seen/Exam by Me History Pt is tolerating PO without issue but not finishing his tray. Has not had a bowel movement since [employer]BER. Nursing gave MOM this AM and attempted prune juice but pt did not like the taste. Ongoing rib pain and having issues sitting in a chair. No SOB but not making good inspiratory effort due to fractures. Has not been using flutter valve per nursing. Agree with HPI/ROS as noted by resident General Appearance: WD/WN, no apparent distress Respiratory: no respiratory distress, decreased breath sounds Cardiovascular: normal peripheral pulses, regular rate, rhythm Gastrointestinal: soft, distended Extremities: non-tender, no pedal edema Neurologic/Psychiatric: alert, depressed affect Skin Characteristics: normal color, warm/dry Assessment/Plan Agree with plan as outlined above PNA, rib fractures Constipation, pt will try prune juice again. May need t/c fleets although pt prefers to avoid this Decrease librium as no signs of withdrawal Will need placement for at least rehab on d/c
[2017-10-06] MEDS: NICOTINE 21 MG/24 HR TDSY TD SCH (08:36)
[2017-10-06] MEDS: CYCLOBENZAPRINE HCL 5 MG TAB PO SCH ×3 (08:37→21:00)
[2017-10-06] MEDS: ASPIRIN 81 MG ECTAB PO SCH (08:37)
[2017-10-06] MEDS: GUAIFENESIN 600 MG TABCR PO SCH ×2 (08:37→21:00)
[2017-10-06] MEDS: AZITHROMYCIN 250 MG TAB PO SCH (08:48)
[2017-10-06] MEDS ORDERED: CHLORDIAZEPOXIDE 10MG 4TH DOSE PO SCH (10:00)
--- NOTE | 2017-10-06 11:26 | Pain Management Consultation ---
Pain Management Consultation Date of Consultation Oct 06, 2017. Reason for Consultation Assistance with pain management. Pain Location 1 - Right-sided anterior chest pain 2 - Left-sided anterior chest pain History Mr. Wilian Sanchez is a 67-year-old male admitted to [facility] with a diagnosis of pneumonia and multiple bilateral rib fractures due to a mechanical fall. This morning patient reports that he sustained a fall "a few days ago" but is unable recall specific events at what caused the fall. He reports experiencing chest pain in bilateral anterior lateral region of the mid to distal thoracic cage due to multiple rib fractures he sustained. He reports pain with deep breathing and coughing and rates pain as 5/10 when severe. Pain occurs with cough. He reports a long-term smoker for 50 years and has a chronic cough. He denies any increasing sputum production or a change in his typical cough. He is currently receiving oxycodone, acetaminophen and cyclobenzaprine for his pain symptoms. He is reporting good efficacy from the oxycodone and states that "it works". He denies any side effects to the oxycodone. He is also on Librium and other agents to minimize withdrawal from alcohol. He has multiple comorbid conditions including alcohol misuse. Past Medical/Surgical History (1) Emphysema of lung (2) Tobacco abuse (3) T12 vertebral fracture Family History Cancer Family Hx Review: history personally reviewed by me Social / Work History Smoking Status: Current every day smoker Smokeless Tobacco Use: No Alcohol Use: none Occupation: unemployed Allergies Coded Allergies: No Known Allergies (Unverified , 10/03/17) Medications Current Inpatient Medications Medications (Trade) Dose Ordered Sig/Jacklyn Route Start Time Stop Time Status Last Admin Dose Admin Ioversol (Optiray 320) 111 ml UD PRN IV 10/02/17 22:00 10/06/17 21:59 Thiamine HCl 100 mg/Syringe 10 ml @ 2 mls/min Q24H IV 10/03/17 03:00 11/02/17 02:59 10/06/17 03:27 2 MLS/MIN Lorazepam (Ativan Inj) PRN Dosing -Active Protocol Q1H PRN IV 10/03/17 02:30 11/02/17 02:29 10/04/17 12:36 1 MG Acetaminophen (Tylenol Tab) 650 mg Q4H PRN PO 10/03/17 02:30 11/02/17 02:29 10/03/17 19:50 650 MG Magnesium Hydroxide (Milk Of Magnesia Susp) 30 ml Q12H PRN PO 10/03/17 02:30 11/02/17 02:29 Ondansetron HCl (Zofran Inj) 4 mg Q6H PRN IV 10/03/17 02:30 11/02/17 02:29 Aspirin (Ecotrin Tab) 81 mg QAM PO 10/03/17 09:00 11/02/17 08:59 10/05/17 08:45 81 MG Nicotine (Nicoderm Cq 21MG Patch) 1 patch QAM TD 10/03/17 09:00 11/02/17 08:59 10/05/17 08:45 1 PATCH Miscellaneous (Remove Nicoderm Patch) 1 ea HS N/A 10/03/17 21:00 11/02/17 20:59 10/05/17 20:45 1 EA Albuterol/ Ipratropium (Duoneb) 3 ml QIDR INH 10/03/17 08:00 11/02/17 07:59 10/06/17 07:15 3 ML Chlordiazepoxide (Librium Cap) 10 mg Q12H PO 10/06/17 10:00 10/06/17 22:01 Heparin Sodium (Porcine) (Heparin Sq 5000 Unit/0.5ml) 5,000 unit Q8 SQ 10/03/17 06:00 11/02/17 05:59 10/06/17 06:04 5,000 UNIT Nicotine Polacrilex (Nicorette 2MG Gum) 1 piece PRN PRN MT 10/03/17 09:00 11/02/17 08:59 10/04/17 08:27 1 PIECE Oxycodone HCl (Roxicodone Immediate Rel Tab) 5 mg Q4H PRN PO 10/03/17 09:30 10/17/17 09:29 10/06/17 03:54 5 MG Cyclobenzaprine HCl (Flexeril Tab) 5 mg TID PO 10/03/17 14:00 11/02/17 13:59 10/05/17 20:45 5 MG Ampicillin Sodium/ Sulbactam Sodium 3000 mg/Sodium Chloride 108 ml @ 200 mls/hr Q6H IV 1/12/18 16:00 10/08/17 15:59 10/06/17 03:48 200 MLS/HR Azithromycin (Zithromax Tab) 250 mg QAM PO 10/04/17 09:00 10/07/17 08:59 10/05/17 08:46 250 MG Guaifenesin (Mucinex Contr Rel Tab) 1,200 mg Q12 PO 10/04/17 09:00 11/03/17 08:59 10/05/17 20:45 1,200 MG Physical Exam Height & Weight: Height 5 feet, 10.00 inches. Weight 80.000 (Kilograms) 176 (Pounds) Last Vital Signs Documentation Date Time Temp Pulse Resp B/P (MAP) Pulse Ox O2 Delivery O2 Flow Rate FiO2 10/06/17 07:15 89 18 97 Nasal Cannula 3.0 10/06/17 03:40 37.1 152/95 (114) Exam: Mr. Sanchez is Awake but drowsy. He appears unkempt but comfortable in sitting position. He has mod pain with palpation over teagan-lateral chest. He is able to take deep breaths but is in mod pain with coughing. Laboratory Laboratory Results (Last CBC): 10/06/17 06:[address]: non enhanced CT Findings IMPRESSION: 1. Fractures of the right third through seventh ribs. 2. Fractures of the left third through eighth ribs. 3. Age-indeterminate T12 compression fracture with minor retropulsion 4. No evidence of pneumothorax 5. Patchy airspace opacities within the right middle lobe and right lower lobe, suspicious for a pneumonia. 6. Scattered tiny bilateral pulmonary nodules. 7. Emphysema Electronically signed by: Jeremías Pineda M.D. 10/03/2017 6:58 AM Dictated Date/Time: 10/03/2017 6:48 AM Radiology Findings IMPRESSION: Probable interstitial infiltrate right base The above report was generated using voice recognition software. It may contain grammatical, syntax or spelling errors. Electronically signed by: Chicho Pettit M.D. 10/02/2017 10:51 PM [place] Drug Monitoring Program Search Results: patient reviewed within database Drug Monitoring Findings: Patient not found Assessment 1. Multiple rib fractures. 2. ETOH abuse. 3. Tobacco abuse. Recommendations 1. D/C acetaminophen 2. Continue oxycodone as prescribed. 3. Not a candidate for rib blocks (too many rib fx) or continuous epidural ( pneumonia and patient declines).
[2017-10-06] MEDS ORDERED: COUGH DROP (SUGAR FREE) LOZ 24 LOZ/1 BOX ONE (12:12)
[2017-10-06] MEDS ORDERED: NURSING VERBAL MED ORDER ONE (12:15)
[2017-10-06] MEDS ORDERED: COUGH DROP (SUGAR FREE) LOZ 24 LOZ/1 BOX PO PRN (12:30)
[2017-10-06] MEDS: AMOXICILLIN/CLAVULANATE TAB 875 MG TAB PO SCH (16:30)
[2017-10-06] MEDS ORDERED: CHLORDIAZEPOXIDE 5 MG CAP ONE (20:46)
[2017-10-06] MEDS: CHLORDIAZEPOXIDE 5 MG CAP PO SCH (21:00)
[2017-10-06] MEDS ORDERED: CHLORDIAZEPOXIDE 10 MG CAP PO SCH (22:00)
[2017-10-07] VITALS (8 sets, daily range): BP systolic 94–122; BP diastolic 61–84; PULSE 81–104; TEMP 36.3–37.1; O2SAT 93–98
[2017-10-07] MEDS: AMPICILLIN/SULBACTAM SOD INJ 3,000 MG in SODIUM CHLORIDE 0.9% 100ML 100 ML IV SCH ×2 (04:23→07:51)
[2017-10-07] MEDS: HEPARIN SOD 5000 UNIT/0.5 ML CARP SQ SCH ×3 (05:50→21:57)
[2017-10-07] MEDS: ALBUT/IPRATROP 3MG/0.5MG NEB 3 ML VIAL INH SCH ×4 (07:20→19:15)
--- NOTE | 2017-10-07 07:32 | Family Medicine Progress Note ---
Progress Note Date of Service Oct 07, 2017. Subjective Pt evaluation today including: conversation w/ patient, physical exam, chart review, lab review, review of studies, conversation w/ salesforce consultant, review of inpatient medication list Patient relatively more alert today. He states ongoing chest pain on the sides bilaterally, which improves with analgesia. He rates his pain 8/10 this morning. He is not ambulating significantly secondary to pain. We discussed rehab in length. Patient declining alcohol rehab, stating he doesn't need it. He states he "will not drink as much once he gets home" saying that he will go "from 8 cans a day to maybe 2 cans a day." When discussing physical therapy, he thinks he is too weak to do PT but understands why it might be helpful. He otherwise denies fevers/chills, dyspnea, abdominal pain. He states he had a large BM last night and has no issues with voiding. ROS is unremarkable except as noted above. Objective Vital Signs Date Time Temp Pulse Resp B/P (MAP) Pulse Ox O2 Delivery O2 Flow Rate FiO2 10/07/17 16:00 Nasal Cannula 2.0 10/07/17 14:57 36.7 89 18 94/61 (72) 98 Nasal Cannula 2.0 10/07/17 14:46 Nasal Cannula 2.0 10/07/17 12:00 Nasal Cannula 2.0 10/07/17 11:13 36.4 84 18 110/76 (87) 96 Nasal Cannula 3.0 10/07/17 10:58 89 18 96 Nasal Cannula 2.0 10/07/17 08:00 36.6 104 24 113/71 (85) 96 Nasal Cannula 3.0 10/07/17 08:00 Nasal Cannula 3.0 10/07/17 07:20 91 18 96 Nasal Cannula 2.0 10/07/17 04:15 37.1 88 18 121/84 (96) 95 Nasal Cannula 3.0 10/07/17 04:05 Nasal Cannula 2.0 10/07/17 00:10 Nasal Cannula 2.0 10/06/17 23:33 37.3 92 17 137/87 (104) 96 Nasal Cannula 3.0 10/06/17 20:15 Nasal Cannula 2.0 10/06/17 19:39 37.0 93 20 132/83 (99) 96 Nasal Cannula 2.0 Physical Exam General Appearance: WD/WN Eyes: normal inspection ENT: hearing grossly normal Neck: supple Respiratory/Chest: lungs clear, normal breath sounds, no respiratory distress, no accessory muscle use Cardiovascular: regular rate, rhythm, no murmur Abdomen: normal bowel sounds, non tender, soft Extremities: normal inspection, no calf tenderness Neurologic/Psychiatric: alert, normal mood/affect, + depressed affect Skin: normal color, warm/dry, no rash Laboratory Results Results Past 24 Hours Test 10/07/17 07:44 10/07/17 16:24 Range/Units White Blood Count 8.20 4.8-10.8 K/uL Red Blood Count 3.67 4.7-6.1 M/uL Hemoglobin 12.2 14.0-18.0 g/dL Hematocrit 37.3 42-52 % Mean Corpuscular Volume 101.6 80-100 fL Mean Corpuscular Hemoglobin 33.2 25-34 pg Mean Corpuscular Hemoglobin Concent 32.7 32-36 g/dl RDW Standard Deviation 46.6 36.4-46.3 fL RDW Coefficient of Variation 12.7 11.5-14.5 % Platelet Count 274 130-400 K/uL Mean Platelet Volume 8.7 7.4-10.4 fL Sodium Level 133 136-145 mmol/L Potassium Level 4.3 3.5-5.1 mmol/L Chloride Level 92 98-107 mmol/L Carbon Dioxide Level 34 21-32 mmol/L Anion Gap 8.0 3-11 mmol/L Blood Urea Nitrogen 6 7-18 mg/dl Creatinine 0.45 0.60-1.40 mg/dl Est Creatinine Clear Calc Drug Dose 164.5 ml/min Estimated GFR () 135.7 Estimated GFR (Non- 117.1 BUN/Creatinine Ratio 12.6 10-20 Random Glucose 94 70-99 mg/dl Calcium Level 8.8 8.5-10.1 mg/dl Bedside Glucose 115 70-99 mg/dl Assessment and Plan 67 year old male with alcoholism and recent fall presenting with hematuria on admission and found incidentally to have ribs fractures bilaterally. He also has a pneumonia (aspiration vs community acquired). He is not acutely withdrawing at this time but has Librium taper on board for this. Pneumonia, aspiration vs community-acquired with acute hypoxic resp failure - PO Augmentin for anaerobic coverage (aspiration risk)- day 5. Completed 5 days of PO Azithromycin for atypical coverage - O2 via NC, wean as tolerated, keep sats >92% - Continue Mucinex - Encourage use of flutter valve and incentive spirometry Multiple fractures of ribs bilaterally - s/p recent fall - as noted on admission CT - Continue Oxycodone q4h - Encourage use of incentive spirometry - Pain management consulted, recs appreciated T12 vertebral fracture - Pain management as per rib fractures Emphysema of lung - Continue PRN Duoneb Alcohol abuse - Currently AWSS with Librium taper - at 5mg currently - Ativan discontinued due to profound sedation - Continue PO thiamine Depression- Children note patient is extremely depressed at home; lives alone; drinks morning to nighttime. Has stated to nursing that he has been depressed since of cervical cancer - Started on bupropion 100mg BID given outside window of acute alcohol withdrawal - plans to titrate up in 3 days potentially. Buproion - Will consider involvement of psychiatry if necessary Hyponatremia - Likely chronic from alcohol use - Na 133; continue to monitor BMP Elevated troponin I level Given reproducible nature of chest pain, current pain likely due to rib fractures rather than ACS. Trending down. Lipid panel grossly normal; [place] risk could not be calculated due to very low total cholesterol. Cardiology has seen and signed off on patient; unlikely ACS but patient likely has underlying atherosclerotic disease. Recs appreciated - Continue ASA Reported hematuria on admission - UA negative for blood; CPK normal Tobacco abuse - Nicotine patch and Nicorette gum DVT Prophylaxis - SCD Knee, VENKATA Hose - Heparin 5000U SC q8h Code Status - Level I Full Code Disposition - Telemetry - OT and PT evaluations - Discharge setting uncertain currently Continued [facility] stay due to: home environment unsafe for pt Discharge planning: uncertain Resident Tracking Resident Involvement: Resident Care Provided Care Provided: Adult Hospital Medicine Reviewed: Pt Seen/Exam by Me History Pt is doing better today. He still has b/l anterior rib pain, but it is improved. He has had several bowel movements and is feeling better sitting in the chair. He did work with PT today, walked in the singer. Son and daughter-in- law are present and feel he looks better today. They feel there was an aspect of depression driving his drinking and are happy he has been started on an antidepressant. Pt is tolerating PO without issue although intake is low. No chest pain or SOB. Agree with HPI/ROS as noted by resident General Appearance: WD/WN, no apparent distress Respiratory: normal breath sounds, no respiratory distress Cardiovascular: normal peripheral pulses, regular rate, rhythm Gastrointestinal: non tender, soft, distended (much improved) Extremities: non-tender, no pedal edema Neurologic/Psychiatric: alert, oriented x 3, depressed affect, other (more talkative today than yesterday) Skin Characteristics: normal color, warm/dry Assessment/Plan Agree with plan as outlined above PNA, rib fractures improving Constipation improving and this has improved pt overall Taper librium as able as no signs of withdrawal Will need placement for at least rehab on d/c Pt does not want alcohol based rehab, but is amenable to PT/OT rehab Started wellbutrin today, will hopefully help with smoking cessation or at least decrease use Stable for transfer to floor
[2017-10-07] MEDS: NICOTINE 21 MG/24 HR TDSY TD SCH (07:51)
[2017-10-07] MEDS: CHLORDIAZEPOXIDE 5 MG CAP PO SCH ×2 (07:51→21:03)
[2017-10-07] MEDS: AMOXICILLIN/CLAVULANATE TAB 875 MG TAB PO SCH ×2 (07:51→18:56)
[2017-10-07] MEDS: THIAMINE HCL 100 MG TAB PO SCH (07:52)
[2017-10-07] MEDS: GUAIFENESIN 600 MG TABCR PO SCH ×2 (07:52→21:54)
[2017-10-07] MEDS: ASPIRIN 81 MG ECTAB PO SCH (07:52)
[2017-10-07] MEDS: OXYCODONE HCL IR 5 MG TAB (IMMEDIATE RELEASE) PO PRN ×4 (07:53→21:56)
[2017-10-07 07:55] LABS: HEMATOCRIT 37.3 % (42-52); HEMOGLOBIN 12.2 g/dL (14.0-18.0); MEAN CELL VOLUME 101.6 fL (80-100); MEAN CORPUSCULAR HEMOGLOBIN 33.2 pg (25-34); MEAN CORPUSCULAR HGB CONC 32.7 g/dl (32-36); MEAN PLATELET VOLUME 8.7 fL (7.4-10.4); PLATELET COUNT 274 K/uL (130-400); RED CELL DISTRIBUTION WIDTH CV 12.7 % (11.5-14.5); RED CELL DISTRIBUTION WIDTH SD 46.6 fL (36.4-46.3)
[2017-10-07] MEDS: CYCLOBENZAPRINE HCL 5 MG TAB PO SCH ×3 (07:55→21:05)
[2017-10-07 08:30] LABS: CALCIUM 8.8 mg/dl (8.5-10.1); CREATININE 0.45 mg/dl (0.60-1.40); POTASSIUM 4.3 mmol/L (3.5-5.1)
[2017-10-07] MEDS: ACETAMINOPHEN 325 MG TAB PO PRN (16:04)
[2017-10-07] MEDS: DOCUSATE SODIUM 100 MG CAP PO SCH (21:04)
--- NOTE | 2017-10-08 05:29 | Family Medicine Progress Note ---
Progress Note Date of Service Oct 08, 2017. Subjective Pt evaluation today including: conversation w/ patient, physical exam, chart review, lab review, review of studies, conversation w/ internal consultant, review of inpatient medication list Patient relatively more alert today. He states ongoing chest pain on the sides bilaterally, which improves with analgesia. He rates his pain 9/10 this morning. He is not ambulating significantly secondary to pain, or even sitting out of bed much. He did participate in OT/PT two days ago and thinks he did well but admits he feels weak. Overnight, he was trying to walk to the toilet when he fell onto the chair. He is unsure of prior vasovagal symptoms or if he experienced a mechanical fall. He otherwise denies fevers/chills, dyspnea, abdominal pain. He has only had one bowel movement since admission but has no issues with voiding. ROS is unremarkable except as noted above. Objective Vital Signs Date Time Temp Pulse Resp B/P (MAP) Pulse Ox O2 Delivery O2 Flow Rate FiO2 10/08/17 00:30 Nasal Cannula 1.5 10/07/17 23:56 37.1 89 16 122/83 (96) 94 Nasal Cannula 2.0 10/07/17 19:15 87 18 98 Nasal Cannula 2.0 10/07/17 16:00 Nasal Cannula 2.0 10/07/17 14:57 36.7 89 18 94/61 (72) 98 Nasal Cannula 2.0 10/07/17 14:46 Nasal Cannula 2.0 10/07/17 12:00 Nasal Cannula 2.0 10/07/17 11:13 36.4 84 18 110/76 (87) 96 Nasal Cannula 3.0 10/07/17 10:58 89 18 96 Nasal Cannula 2.0 10/07/17 08:00 36.6 104 24 113/71 (85) 96 Nasal Cannula 3.0 10/07/17 08:00 Nasal Cannula 3.0 10/07/17 07:20 91 18 96 Nasal Cannula 2.0 Physical Exam General Appearance: WD/WN, no apparent distress Eyes: normal inspection ENT: hearing grossly normal Respiratory/Chest: lungs clear, normal breath sounds, no respiratory distress, no accessory muscle use, + pertinent finding (Takes shallow breaths) Cardiovascular: regular rate, rhythm, no murmur Abdomen: normal bowel sounds, non tender, soft Extremities: normal inspection, no pedal edema, no calf tenderness Neurologic/Psychiatric: alert, oriented x 3, + depressed affect Skin: normal color, warm/dry, no rash Assessment and Plan 67 year old male with alcoholism and recent fall presenting with hematuria on admission and found incidentally to have ribs fractures bilaterally. He also has a pneumonia (aspiration vs community acquired). He is not acutely withdrawing at this time but has Librium taper on board for this. Pneumonia, aspiration vs community-acquired with acute hypoxic resp failure - PO Augmentin for anaerobic coverage (aspiration risk)- day 6. Completed 5 days of PO Azithromycin for atypical coverage - O2 via NC, wean as tolerated, keep sats >92% - Continue Mucinex - Encourage use of flutter valve and incentive spirometry Multiple fractures of ribs bilaterally - s/p recent fall - as noted on admission CT - Continue Oxycodone q4h - Encourage use of incentive spirometry - Pain management consulted, recs appreciated T12 vertebral fracture - Pain management as per rib fractures Previous infarct on EKG - Presence of q waves not previously noted on EKGs from 5 days ago. Trops negative. [facility] consulted - recs appreciated. Mildly elevated troponin level initially thought to be likely due to rib fractures rather than ACS given reproducible nature of chest pain. Lipid panel grossly normal; [place] risk could not be calculated due to very low total cholesterol. Cardiology consulted, recs appreciated. [place] unlikely ACS but patient likely has underlying atherosclerotic disease. Echo shows mild concentric LVH, LVEF 65- 70 %. Abnormal septal motion consistent with RV pressure overload. RV mild to moderately dilated with mild RV dysfunction. No significant valvular pathology. - Continue ASA - Start atorvastatin 40mg given infarct - CT chest to rule out PE as cause of EKG changes/RV strain and contributor of chest pain/hypoxia Emphysema of lung - Continue PRN Duoneb Alcohol abuse - AWSS with Librium discontinued. Ativan previously discontinued due to profound sedation - Continue PO thiamine - Patient declining alcohol rehab Depression- Children note patient is extremely depressed at home; lives alone; drinks morning to nighttime. Has stated to nursing that he has been depressed since of cervical cancer - Continue bupropion 100mg BID with plans to titrate up tomorrow - Will consider involvement of psychiatry if necessary Hyponatremia - Likely chronic from alcohol use - Na 134; continue to monitor BMP Reported hematuria on admission - UA negative for blood; CPK normal Tobacco abuse - Nicotine patch and Nicorette gum DVT Prophylaxis - SCD Knee, VENKATA Hose - Heparin 5000U SC q8h Code Status - Level I Full Code Disposition - Telemetry - OT and PT evaluations - Discharge setting uncertain currently ADDENDUM: CT report: 1. There are subsegmental pulmonary emboli within branches of the right middle and left lower lobe pulmonary arteries. No central pulmonary embolus is seen. 2. Cardiomegaly and emphysema with evidence of pulmonary artery hypertension. 3. Small to moderate right and small left pleural effusions. 4. Patchy airspace consolidation is present at both lung bases, right greater than left. This could present atelectasis versus pneumonia. Clinical correlation will be required. 5. Acute to subacute bilateral rib fractures are unchanged from 10/02/2017. 6. Debris/secretions are present within the lower lobe airways bilaterally. Correlate clinically for evidence of aspiration. 7. Right apical nodules measuring up to 3 mm are of indeterminant significance and unchanged from 10/02/2017. The can be followed if clinically warranted. See below. Patient started on therapeutic IV heparin. Daughter Vandana Branch called and informed of CT report and current management plans. She is concerned that patient's pain is not adequately controlled (he only received one dose of oxycodone this morning - confirmed by my EHR review). Her questions were answered to her satisfaction. Continued [facility] stay due to: home environment unsafe for pt Discharge planning: rehab hospital Resident Tracking Resident Involvement: Resident Care Provided Care Provided: Adult Hospital Medicine Reviewed: Pt Seen/Exam by Me History Resident Physician Supervision Note: I interviewed and examined the patient. Discussed with Dr. Barrios and agree with findings and plan as documented in the note. Any exceptions or clarifications are listed here: Patient very drowsy today, received oxycodone earlier in the day and the nurse reports he's been sleeping a lot. He currently denies any pain in the ribs. Denies shortness of breath, but is still requiring oxygen. He does not recall the cause of the fall that occurred this morning. His ECGs were all reviewed and he does appear to have Q waves in the anterior leads. Repeat troponin was negative. Echocardiogram showed evidence of right heart strain. CT angiogram of the chest was ordered and he does have bilateral subsegmental pulmonary emboli. He remained stable otherwise Vitals reviewed NAD, drowsy but wakes up easily to verbal stimuli Regular rate and rhythm, no murmurs gallops rubs Lungs with crackles at the bases, otherwise diminished but clear. Abdomen positive bowel sounds soft nontender nondistended MSK-positive tenderness to palpation over the anterior rib cage Extremities no edema Echocardiogram with normal EF and evidence of right-sided heart strain with mild RV dysfunction Patient is a 67-year-old male with history of alcohol abuse, current smoker, who presented with recent falls, gross hematuria, productive cough, chest pain and rib fractures, found to have likely aspiration pneumonia, elevated troponin and ECG abnormalities. He was detoxified from alcohol in the beginning of the admission -Found to have bilateral subsegmental pulmonary emboli which is likely contributing to his elevated troponin previously and ECG changes-we'll begin IV heparin and watch for recurrence of hematuria. Coumadin would likely be the best choice for him given its reversibility in the setting of his history of falls and alcohol abuse. Will need 3-6 months of treatment -Continue pain control but watch for somnolence with opioid use -Repeat urinalysis to ensure no further microscopic hematuria especially in the setting of smoking-high risk for bladder cancer -Add atorvastatin, continue baby aspirin for likely underlying CAD-needs outpatient stress test at some point in the future as per cardiology recommendations -Not stable for discharge at this time but eventually will need rehabilitation placement Documented By: Leyla Akbar
[2017-10-08] MEDS: HEPARIN SOD 5000 UNIT/0.5 ML CARP SQ SCH ×2 (05:56→14:44)
[2017-10-08 06:04] LABS: HEMATOCRIT 40.8 % (42-52); HEMOGLOBIN 13.2 g/dL (14.0-18.0); MEAN CELL VOLUME 102.3 fL (80-100); MEAN CORPUSCULAR HEMOGLOBIN 33.1 pg (25-34); MEAN CORPUSCULAR HGB CONC 32.4 g/dl (32-36); PLATELET COUNT 362 K/uL (130-400); RED CELL DISTRIBUTION WIDTH CV 12.7 % (11.5-14.5); RED CELL DISTRIBUTION WIDTH SD 47.6 fL (36.4-46.3); WHITE BLOOD COUNT 11.68 K/uL (4.8-10.8)
[2017-10-08] MEDS ORDERED: ASPIRIN 81 MG CHEW PO STA (06:10)
--- NOTE | 2017-10-08 06:27 | Progress Note ---
Progress Note Date of Service Oct 08, 2017. Progress Note fall this am from bed into soft chair per RN, denied CP during episode or dizziness vitals stable Orthostatics ordered as well as EKG stat and CXR EKG concerning for Q waves in anteroseptal leads which are new since elevated troponin on 08/03 upon questioning a second time c/o chest pain, difficult to discern if this was BL from rib fractures, ASA 325 mg and trop/ CKMB ordered; consult [facility] for a reeval and reassess need for intervention vs med mx - hold on breakfast for now until reassess by day team
[2017-10-08 06:36] LABS: CALCIUM 9.2 mg/dl (8.5-10.1); CREATININE 0.66 mg/dl (0.60-1.40); POTASSIUM 4.2 mmol/L (3.5-5.1)
[2017-10-08] MEDS: ALBUT/IPRATROP 3MG/0.5MG NEB 3 ML VIAL INH SCH ×4 (07:01→20:00)
[2017-10-08 07:03] VITALS: PULSE 92; O2SAT 93
[2017-10-08 07:06] LABS: CKMB 2.1 ng/ml (0.5-3.6)
[2017-10-08 07:07] LABS: BASO % 0.9 %; BASO ABS # 0.11 K/uL (0-0.2); EOS % 2.4 %; EOS ABS # 0.29 K/uL (0-0.5); IG# 0.07 K/uL (0.00-0.02); LYMPH ABS # 2.05 K/uL (1.2-3.4); MONO % 13.2 %; NEUT % 65.9 %; NEUT ABS # 7.96 K/uL (1.4-6.5)
--- NOTE | 2017-10-08 07:13 | DIAGNOSTIC IMAGING REPORT ---
CHEST ONE VIEW PORTABLE HISTORY: 67 years-old Male fall, hypoxia acute hypoxia COMPARISON: Chest radiograph and chest CT 10/02/2017 TECHNIQUE: Portable AP view of the chest FINDINGS: Cardiac silhouette is upper limits of normal in size. Emphysematous changes redemonstrated. No pneumothorax. Trace pleural effusions are noted bilaterally along with patchy bibasilar alveolar opacities which have worsened from comparison. No overt pulmonary edema. Rib fractures on the right redemonstrated without displacement. IMPRESSION: 1. Progressively worsened patchy bibasilar alveolar opacities suggest pneumonia or aspiration pneumonitis. 2. Trace bilateral pleural effusions. 3. Emphysema. The above report was generated using voice recognition software. It may contain grammatical, syntax or spelling errors. Electronically signed by: Jay Montemayor M.D. 10/08/2017 7:12 AM Dictated Date/Time: 10/08/2017 7:10 AM
[2017-10-08] MEDS ORDERED: NURSING VERBAL MED ORDER ONE (07:15)
[2017-10-08] MEDS: AMOXICILLIN/CLAVULANATE TAB 875 MG TAB PO SCH ×2 (08:17→17:15)
[2017-10-08] MEDS: DOCUSATE SODIUM 100 MG CAP PO SCH ×2 (08:17→21:13)
[2017-10-08 08:18] VITALS: BP_SYST 106; BP_SYST 113; BP_SYST 94; BP_DIAS 64; BP_DIAS 73; BP_DIAS 78; PULSE 80; PULSE 95; PULSE 96; TEMP 37; O2SAT 95
[2017-10-08] MEDS: THIAMINE HCL 100 MG TAB PO SCH (08:18)
[2017-10-08] MEDS: OXYCODONE HCL IR 5 MG TAB (IMMEDIATE RELEASE) PO PRN (08:19)
[2017-10-08] MEDS: CYCLOBENZAPRINE HCL 5 MG TAB PO SCH ×3 (09:13→21:13)
[2017-10-08] MEDS: GUAIFENESIN 600 MG TABCR PO SCH ×2 (09:13→21:13)
[2017-10-08] MEDS ORDERED: PERFLUTREN LIPID MICROSPHERE (DEFINITY) IV ONE (09:15)
[2017-10-08] MEDS: NICOTINE 21 MG/24 HR TDSY TD SCH (09:15)
[2017-10-08] MEDS: CHLORDIAZEPOXIDE 5 MG CAP PO SCH (09:55)
--- NOTE | 2017-10-08 11:06 | Cardiology Follow-Up ---
Subjective Date of Service: Oct 08, 2017. Pt evaluation today including: conversation w/ patient, physical exam, chart review, lab review, review of studies, review of inpatient medication list History of Present Illness This 67 year old male with history significant for alcohol abuse presented to [facility] ED last week with pneumonia and multiple rib fractures s/p fall due to intoxication. A reconsult request was ordered due to abnormal T wave changes in his most recent EKG. The patient fell after getting up from his bed last night and EKG, troponin, and CXR were ordered. His troponin level is trending down to below 0.015 and his recent EKG on 10/08/2017 showed T wave changes in lead V3 compared to his EKG on 10/05/2017. The patient reports that his chest pain started after he fell down last week due to intoxication and the pain severity is rated as a 6/10 without any changes from when it first occurred. He describes his pain as a non-radiating sharp pain in the anterior lateral region of distal rib cage bilaterally and it' s aggravated with coughing or sitting up straight. He never had this kind of chest pain before and he denies a history of coronary artery disease, prior myocardial infarctions, myocardial ischemia, TIA, CVA. His chest pain is not associated with palpitation, shortness of breath, dyspnea on exertion, orthopnea , PND, muscle weakness, paresthesia, peripheral edema, and cerebrovascular symptoms. The patient drinks 6-8 beers daily and he smokes 1 pack per day. He denies illicit drug use. He lives by himself and he hasn't seen his primary care doctor in many years. The only medication that he's taking daily is aspirin 81mg oral 1 tablet per day. Up to this hospital admission, the patient does not have any prior cardiac studies. Social History Smoking Status: Current Every Day Smoker History of Alcohol Use: Yes (beer, rum ) Review of Systems Respiratory: + cough, + sputum, + shortness of breath Cardiac: + chest pain, No orthopnea, No palpitations chest pain in anterior lateral region of distal rib cage bilaterally. Aggravated by coughing and sitting up right. Severity: 6/10. Objective Vital Signs Past 12 Hours Date Time Temp Pulse Resp B/P (MAP) Pulse Ox O2 Delivery O2 Flow Rate FiO2 10/08/17 08:18 37.0 96 22 113/78 (90) 95 Nasal Cannula 2.0 95 106/73 (84) 80 94/64 (74) 10/08/17 07:46 Nasal Cannula 2.0 10/08/17 07:03 92 18 93 Nasal Cannula 2.0 10/08/17 00:30 Nasal Cannula 1.5 10/07/17 23:56 37.1 89 16 122/83 (96) 94 Nasal Cannula 2.0 Last Recorded Weight-Kilograms: 74.000 Physical Exam Constitutional: Level of Distress: NAD (sleepy but arousable. ) Lungs: Auscultation: decreased breath sounds, rhonchi, pertinent finding ( decreased breath sound and diffuse scattered rhonchi in posterior lung gordon) Cardiovascular: Apical Impulse: not displaced Heart Auscultation: RRR, normal S1, normal S2, no murmurs, no rubs, no gallops, pertinent finding (distant heart sound. ) Peripheral Pulses: Radial Pulse: normal on the left, normal on the right Extremities: no cyanosis, no edema, no clubbing, no ulcers, no mottling Data Laboratory Results: Last 24 Hours Test 10/07/17 16:24 10/08/17 05:35 10/08/17 06:11 Bedside Glucose 115 mg/dl White Blood Count 11.68 K/uL Red Blood Count 3.99 M/uL Hemoglobin 13.2 g/dL Hematocrit 40.8 % Mean Corpuscular Volume 102.3 fL Mean Corpuscular Hemoglobin 33.1 pg Mean Corpuscular Hemoglobin Concent 32.4 g/dl Platelet Count 362 K/uL Mean Platelet Volume 9.0 fL Neutrophils (%) (Auto) 65.9 % Lymphocytes (%) (Auto) 17.0 % Monocytes (%) (Auto) 13.2 % Eosinophils (%) (Auto) 2.4 % Basophils (%) (Auto) 0.9 % Neutrophils # (Auto) 7.96 K/uL Lymphocytes # (Auto) 2.05 K/uL Monocytes # (Auto) 1.60 K/uL Eosinophils # (Auto) 0.29 K/uL Basophils # (Auto) 0.11 K/uL RDW Standard Deviation 47.6 fL RDW Coefficient of Variation 12.7 % Immature Granulocyte % (Auto) 0.6 % Immature Granulocyte # (Auto) 0.07 K/uL Nucleated RBC Absolute Count (auto) 0.00 K/uL Nucleated Red Blood Cells % 0.0 % Sodium Level 134 mmol/L Potassium Level 4.2 mmol/L Chloride Level 92 mmol/L Carbon Dioxide Level 32 mmol/L Anion Gap 10.0 mmol/L Blood Urea Nitrogen 8 mg/dl Creatinine 0.66 mg/dl Est Creatinine Clear Calc Drug Dose 112.1 ml/min Estimated GFR () 116.0 Estimated GFR (Non- 100.0 BUN/Creatinine Ratio 12.5 Random Glucose 107 mg/dl Calcium Level 9.2 mg/dl Creatine Kinase MB 2.1 ng/ml Troponin I < 0.015 ng/ml Creatine Kinase MB Ratio Imagin. CXR (10/08/2017): Progressively worsened patchy bibasilar alveolar opacities suggest pneumonia or aspiration pneumonitis. Trace bilateral pleural effusions. Emphysema. EK. EKG (10/08/2017): sinus tachycardia with ventricular rate of 108 bpm. Anteroseptal infarct with T wave changes in lead V3. Abnormal EKG when compared with EKG of 10/05/2017. Telemetry reviewed: None. Assessment and Plan ASSESSMENT/PLAN: This 67 year old male with history significant for alcohol abuse presented to [facility] ED last week with pneumonia and multiple rib fractures s/p fall due to intoxication. A reconsult request was ordered due to abnormal T wave changes in his most recent EKG. The patient fell after getting up from his bed last night and EKG, troponin, and CXR were ordered. His troponin level is trending down to below 0.015 and his recent EKG on 10/08/2017 showed T wave changes in lead V3 compared to his EKG on 10/05/2017. 1. Atypical chest pain: The patient's chest pain is described as sharp, non- radiating pain in bilateral anterior lateral region of the distal rib cage. His troponin level is trending down since his admission on 10/02/2017 and now it's < 0.015. His CK-MB level is 2.1 and within reference range. The T wave changes in lead V3 on today EKG is possibly due to lead placement. Suspicion to acute coronary syndrome event is very low and cardiac catheterization is not necessary at this point. However, since the patient does not have any prior cardiac studies and he might have some degree of chronic coronary artery disease , it is recommended to perform an echocardiogram prior to his discharge to evaluate his heart wall motion for any possible abnormality. Strongly recommend to have patient continue aspirin and have him start on a statin after hospital discharge. In the future, a stress test could be considered in the outpatient clinic, but the patient is unlikely to follow up. At this time, recommend continue medical management of his active issues. Please recontact if there is any new cardiac issue. Thank you for your consultation. WARD Feliz DR. ADDENDUM: Agree with assessment and plan as outlined above. Briefly, patient had mechanical fall overnight. Around the time of his fall he had continued bilateral chest/flank pain unchanged from prior in the setting of his known rib fractures. A repeat EKG showed subtle changes most notably in V3 which suspect is secondary to lead positioning. Cardiac enzymes unremarkable. Today patient feels well with no new chest pain. Echo reviewed and shows normal LV function without regional wall motion abnormalities. RV is dilated with mild RV dysfunction. Suspect some degree of pulmonary hypertension although not identified on study. At this point, do not feel that further cardiac workup is necessary at this time as suspicion for ACS is low. Stress test could be considered as an outpatient to rule-out chronic high risk disease. Continue ASCVD risk factor modification. Please contact with additional questions.
[2017-10-08 14:49] VITALS: BP 111/76; PULSE 93; TEMP 36.8; O2SAT 97
--- NOTE | 2017-10-08 16:11 | ECHOCARDIOGRAM REPORT ---
*NOTICE TO RECEIVING DEMOCRAT AGENCY This information is strictly Confidential and protected under [place] law. [place] law prohibits you from making any further disclosure of this information unless further disclosure is expressly permitted by the written consent of the person to whom it pertains or is authorized by law. A general authorization for the release of medical or other information is not sufficient for this purpose. Hospital accepts no responsibility if the information is made available to any other person, INCLUDING THE PATIENT. Interpretation Summary * Name: MARGOT RUFF Study Date: 10/08/2017 07:28 AM BP: 94/64 mmHg * Patient Location: [facility] HR: 80 * : 1950 (M/d/yyy) Gender: Male Height: 70 in * Age: 67 yrs Ethnicity: [place] Weight: 163 lb * Performed By: Lakeshia Baker RDCS * * Reason For Study: ELEVATED TROPONIN, CHANGED EKG * BSA: 1.9 m2 * -- Conclusions -- * 1. Normal LV size. Mild concentric LVH. * 2. Normal LV systolic function. LVEF 65-70 %. Abnormal septal motion consistent with RV pressure overload. * 3. RV mild to moderately dilated with mild RV dysfunction. * 4. No significant valvular pathology. No significant TR identified to estimate PA pressures * 5. Normal estimated CVP * 6. No prior studies for comparison. Procedure Details * A contrast injection of Definity was performed to improve assessment of LV function. * Contrast was injected into an intravenous site in the left arm. * One vial of Definity ultrasound contrast was diluted in normal saline to a total volume of 10 ml. A total of '2' ml of solution was administered during imaging. * Lot # [id number] of Definity utilized for procedure. * Expiration date 1 NOV 10. * The attending nurse who injected the contrast agent was RICKY CAMARENA RN. Left Ventricle * The left ventricle is grossly normal size. * There is mild concentric left ventricular hypertrophy. * Ejection Fraction = 65-70%. * Flattened septum is consistent with RV pressure overload. Right Ventricle * The right ventricle is mild to moderately dilated. * The right ventricle is not well visualized. * The right ventricular systolic function is borderline reduced. Atria * The left atrial size is normal. * The right atrium is mildly dilated. Aortic Valve * The aortic valve opens well. * The aortic valve is trileaflet. * No hemodynamically significant valvular aortic stenosis. * There is no significant aortic regurgitation. Pulmonic Valve * The pulmonary valve is inadequately visualized, but the Doppler data is adequate for interpretation. * Pulmonic stenosis is absent. * There is no significant pulmonary regurgitation. Great Vessels * The aortic root and proximal ascending aorta are normal sized. Pericardium/Pleural * There is no pericardial effusion. Great Vessels * Normal inferior vena cava size and collapsability with sniff indicates a normal right atrial pressure of 3 mmHg MMode 2D Measurements and Calculations IVSd 1.4 cm IVSs 1.8 cm LVIDd 3.6 cm LVIDs 2.4 cm LVPWd 1.2 cm LVPWs 1.8 cm IVS/LVPW 1.1 FS 32.4 % EDV(Teich) 53.4 ml ESV(Teich) 20.5 ml EF(Teich) 61.7 % EDV(cubed) 45.6 ml ESV(cubed) 14.1 ml EF(cubed) 69.1 % % IVS thick 30.2 % % LVPW thick 51.3 % LV mass(C)d 155.0 grams LV mass(C)dI 81.0 grams/m\S\2 LV mass(C)s 169.2 grams LV mass(C)sI 88.4 grams/m\S\2 SV(Teich) 33.0 ml SI(Teich) 17.2 ml/m\S\2 SV(cubed) 31.5 ml SI(cubed) 16.5 ml/m\S\2 Ao root diam 3.7 cm Ao root area 11.0 cm\S\2 LVAd ap4 25.6 cm\S\2 LVLd ap4 7.3 cm EDV(MOD-sp4) 69.9 ml EDV(sp4-el) 76.4 ml LVAs ap4 12.9 cm\S\2 LVLs ap4 5.5 cm ESV(MOD-sp4) 25.9 ml ESV(sp4-el) 25.7 ml EF(MOD-sp4) 62.9 % EF(sp4-el) 66.3 % LVAd ap2 24.9 cm\S\2 LVLd ap2 7.5 cm EDV(MOD-sp2) 68.9 ml EDV(sp2-el) 70.0 ml LVAs ap2 14.2 cm\S\2 LVLs ap2 6.7 cm ESV(MOD-sp2) 23.9 ml ESV(sp2-el) 25.5 ml EF(MOD-sp2) 65.3 % EF(sp2-el) 63.6 % LVLd %diff 2.9 % EDV(MOD-bp) 69.3 ml LVLs %diff 17.8 % ESV(MOD-bp) 27.4 ml EF(MOD-bp) 60.5 % SV(MOD-sp4) 44.0 ml SI(MOD-sp4) 23.0 ml/m\S\2 SV(MOD-sp2) 45.0 ml SI(MOD-sp2) 23.5 ml/m\S\2 SV(MOD-bp) 42.0 ml SI(MOD-bp) 21.9 ml/m\S\2 SV(sp4-el) 50.6 ml SI(sp4-el) 26.5 ml/m\S\2 SV(sp2-el) 44.6 ml SI(sp2-el) 23.3 ml/m\S\2 Doppler Measurements and Calculations MV E max martina 66.1 cm/sec MV A max martina 107.7 cm/sec MV E/A 0.61 MV dec time 0.16 sec Ao V2 max 140.3 cm/sec Ao max PG 7.9 mmHg Ao max PG (full) 0.88 mmHg LV V1 max PG 7.0 mmHg LV V1 max 132.2 cm/sec
[2017-10-08] MEDS ORDERED: MAGNESIUM HYDROXIDE SUSP 30 ML UDC PO ONE (17:30)
[2017-10-08] MEDS ORDERED: OPTIRAY 320 IV PRN (19:45)
--- NOTE | 2017-10-08 19:55 | DIAGNOSTIC IMAGING REPORT ---
CT ANGIOGRAM OF THE CHEST CLINICAL HISTORY: Frequent falls. Dyspnea. COMPARISON STUDY: Chest CT dated 10/02/2017. TECHNIQUE: Following the IV administration of 94 cc of Optiray 320, CT angiogram of the chest was performed from the upper abdomen to the thoracic inlet utilizing the pulmonary embolus protocol. Images are reviewed in the axial, sagittal, and coronal planes. 3-D MIPS images are created and assessed. IV contrast was administered without complication. A dose lowering technique was utilized adhering to the principles of ALARA. CT DOSE: 306.75 mGy.cm FINDINGS: Thyroid: Imaged portions of the thyroid gland are normal in size and attenuation. Thoracic aorta: There is atherosclerotic calcification of the thoracic aorta, which is normal in caliber and demonstrates standard 3-vessel arch anatomy. No dissection is seen. Pulmonary vasculature: The pulmonary trunk is dilated, measuring up to 3.4 cm. This suggests pulmonary artery hypertension. . There are no central pulmonary emboli within the main, lobar, or segmental pulmonary vessels. Subsegmental pulmonary emboli are seen within branches of the left lower lobe (image #102) and right middle lobe (image #106) pulmonary arteries Heart: The heart is enlarged and without pericardial effusion. The coronary arteries are densely calcified. Lungs and pleural spaces: The trachea and central airways are clear. Emphysema is noted. Segmental atelectasis is seen in the lingula. Patchy consolidative changes present at both lung bases, right greater than left. There are small to moderate right and small left pleural effusions with associated atelectasis. Secretions/debris are present within the dependent lower lobe airways. Tiny right apical pulmonary nodules measuring up to 3 mm seen on image #236 and #231. These are unchanged Mediastinum: There are scattered subcentimeter mediastinal lymph nodes. Sandra: Clear. Axillae: There is no axillary lymphadenopathy. Upper abdomen: Partially visualized upper abdominal viscera is within normal limits. Skeletal structures: The skeletal structures are osteopenic. There is a mild compression deformity of T12, unchanged from 10/02/2017. No lytic or blastic bony lesions are seen. Acute to subacute bilateral rib fractures are unchanged from the 10/02/2017 examination. IMPRESSION: 1. There are subsegmental pulmonary emboli within branches of the right middle and left lower lobe pulmonary arteries. No central pulmonary embolus is seen. 2. Cardiomegaly and emphysema with evidence of pulmonary artery hypertension. 3. Small to moderate right and small left pleural effusions. 4. Patchy airspace consolidation is present at both lung bases, right greater than left. This could present atelectasis versus pneumonia. Clinical correlation will be required. 5. Acute to subacute bilateral rib fractures are unchanged from 10/02/2017. 6. Debris/secretions are present within the lower lobe airways bilaterally. Correlate clinically for evidence of aspiration. 7. Right apical nodules measuring up to 3 mm are of indeterminant significance and unchanged from 10/02/2017. The can be followed if clinically warranted. See below. 8. Additional findings as above. Please refer to below summary of Fleischner criteria recommendations for follow-up of incidental CT nodules (Mary Murcia, Guidelines for management of small pulmonary nodules detected on CT scans: A statement from the Fleischner Society, Radiology 237: [phone].) SOLID NODULES Solitary nodule size: <6 mm * low risk patients: no follow-up needed * high risk patients: optional CT at 12 months Solitary nodule size: 6-8 mm * low risk patients: follow-up at 6-12 months, then consider further follow-up at 18-24 months * high risk patients: initial follow-up CT at 6-12 months and then at 18-24 months if no change Solitary nodule size: >8 mm * either low or high risk patients - consider follow-up CT at 3 months, and/or CT-PET, and/or biopsy Multiple nodules size: <6 mm * low risk patients: no routine follow-up * high risk patients: optional CT at 12 months Multiple nodules size: 6-8 mm * low risk patients: follow-up at 3-6 months, then consider further follow-up at 18-24 months * high risk patients: follow-up at 3-6 months, then at 18-24 months if no change Multiple nodules size: >8 mm * low risk patients: follow-up at 3-6 months, then consider further follow-up at 18-24 months * high risk patients: follow-up at 3-6 months, then at 18-24 months if no change Note: newly detected indeterminate nodule in persons 35 years of age or older. * low risk patients: minimal or absent history of smoking and/or other known risk factors * high risk patients: history of smoking or of other known risk factors (e.g. first degree relative with lung cancer, or exposure to asbestos, radon, uranium) * if a nodule up to 8 mm is partly solid or is ground glass further follow-up is required after 24 months to exclude possible slow growing adenocarcinoma (SUDHIR) SUBSOLID NODULES Solitary pure ground-glass nodule * nodule size <6 mm - no CT follow-up required * nodule size >=6 mm - follow-up CT at 6-12 months, then every 2 years until 5 years Solitary part-solid nodule * nodule size <6 mm - no CT follow-up required * nodule size >=6 mm - follow-up CT at 3-6 months. If unchanged, and solid component remains <6 mm, then annual follow-up for 5 years Multiple subsolid nodules * nodule size <6 mm - follow-up CT at 3-6 months, consider further follow-up at 2 and 4 years if stable * nodule size >=6 mm - follow-up CT at 3-6 months, subsequent management based on the most suspicious nodule(s) Electronically signed by: Juan C Patiño M.D. 10/08/2017 7:53 PM Dictated Date/Time: 10/08/2017 7:42 PM
[2017-10-08 21:42] LABS: PTT PATIENT 30.5 SECONDS (21.0-31.0)
[2017-10-08] MEDS: HEPARIN 25,000 UNIT/500ML D5W 500 ML IV PRN (21:47)
[2017-10-09] VITALS (7 sets, daily range): BP systolic 78–121; BP diastolic 45–93; PULSE 88–97; TEMP 36.9–37.3; O2SAT 84–99
[2017-10-09] MEDS ORDERED: FUROSEMIDE INJ 40 MG in SYRINGE 0 ML IV ONE (00:30)
[2017-10-09 03:57] LABS: HEMATOCRIT 37.8 % (42-52); HEMOGLOBIN 12.4 g/dL (14.0-18.0); MEAN CELL VOLUME 100.3 fL (80-100); MEAN CORPUSCULAR HEMOGLOBIN 32.9 pg (25-34); MEAN CORPUSCULAR HGB CONC 32.8 g/dl (32-36); MEAN PLATELET VOLUME 8.9 fL (7.4-10.4); PLATELET COUNT 347 K/uL (130-400); RED CELL DISTRIBUTION WIDTH CV 12.7 % (11.5-14.5); RED CELL DISTRIBUTION WIDTH SD 46.2 fL (36.4-46.3)
[2017-10-09 04:27] LABS: PTT PATIENT 45.8 SECONDS (21.0-31.0)
[2017-10-09] MEDS ORDERED: HEPARIN IV BOLUS 3,000 UNIT in SYRINGE 0 ML IV ONE (05:00)
[2017-10-09] MEDS: HEPARIN 25,000 UNIT/500ML D5W 500 ML IV PRN (05:16)
[2017-10-09] MEDS: ALBUT/IPRATROP 3MG/0.5MG NEB 3 ML VIAL INH SCH (07:29)
[2017-10-09] MEDS: ATORVASTATIN 40 MG TAB PO SCH (07:38)
[2017-10-09] MEDS: ASPIRIN 81 MG ECTAB PO SCH (07:38)
[2017-10-09] MEDS: GUAIFENESIN 600 MG TABCR PO SCH ×2 (07:39→20:46)
[2017-10-09] MEDS: DOCUSATE SODIUM 100 MG CAP PO SCH ×2 (07:39→20:45)
[2017-10-09] MEDS: NICOTINE 21 MG/24 HR TDSY TD SCH (07:39)
[2017-10-09] MEDS: THIAMINE HCL 100 MG TAB PO SCH (07:39)
[2017-10-09] MEDS: CYCLOBENZAPRINE HCL 5 MG TAB PO SCH (07:39)
[2017-10-09] MEDS: AMOXICILLIN/CLAVULANATE TAB 875 MG TAB PO SCH ×2 (07:39→17:24)
[2017-10-09 07:54] LABS: CALCIUM 8.9 mg/dl (8.5-10.1); CREATININE 0.44 mg/dl (0.60-1.40); POTASSIUM 3.6 mmol/L (3.5-5.1)
[2017-10-09] MEDS ORDERED: ENOXAPARIN 1 MG/KG SQ SCH (10:15)
[2017-10-09] MEDS ORDERED: ENOXAPARIN 80 MG/0.8 ML SYR SQ ONE (11:00)
[2017-10-09] MEDS ORDERED: ALBUT/IPRATROP 3MG/0.5MG NEB 3 ML VIAL INH PRN (12:00)
[2017-10-09] MEDS ORDERED: WARFARIN SOD 5 MG TAB PO SCH (16:00)
--- NOTE | 2017-10-09 17:51 | Family Medicine Progress Note ---
Progress Note Date of Service Oct 09, 2017. Subjective Pt evaluation today including: conversation w/ patient, physical exam, chart review, lab review, review of studies, conversation w/ data integrity consultant, review of inpatient medication list Patient sleepy but arousable today. Difficult to engage in conversation. He states ongoing chest pain on the sides bilaterally, which improves with analgesia. He rates his pain 5/10 this morning. He is not ambulating significantly, but agreeable to sitting out of bed more. He otherwise denies fevers/chills, dyspnea, abdominal pain. He had another bowel movement yesterday evening and has no issues with voiding. ROS is unremarkable except as noted above. Objective Vital Signs Date Time Temp Pulse Resp B/P (MAP) Pulse Ox O2 Delivery O2 Flow Rate FiO2 10/09/17 19:39 84 Room Air 10/09/17 19:39 94 Nasal Cannula 1.0 10/09/17 16:20 96 Nasal Cannula 1.0 10/09/17 15:32 36.9 91 18 121/81 (94) 98 Nasal Cannula 2.0 10/09/17 08:00 Nasal Cannula 2.0 10/09/17 06:54 36.9 88 18 120/78 (92) 99 Nasal Cannula 2.0 10/09/17 00:00 93 Nasal Cannula 2.0 Physical Exam General Appearance: WD/WN, no apparent distress Eyes: normal inspection ENT: hearing grossly normal Respiratory/Chest: no respiratory distress, no accessory muscle use, + pertinent finding (Poor inspiratory effort) Cardiovascular: regular rate, rhythm, no murmur Abdomen: normal bowel sounds, non tender, soft Extremities: normal inspection, no pedal edema Neurologic/Psychiatric: + depressed affect, + pertinent finding (Less alert than previous) Skin: normal color, warm/dry, no rash Laboratory Results Results Past 24 Hours Test 10/09/17 03:35 10/09/17 06:54 10/09/17 19:00 Range/Units White Blood Count 10.00 4.8-10.8 K/uL Red Blood Count 3.77 4.7-6.1 M/uL Hemoglobin 12.4 14.0-18.0 g/dL Hematocrit 37.8 42-52 % Mean Corpuscular Volume 100.3 80-100 fL Mean Corpuscular Hemoglobin 32.9 25-34 pg Mean Corpuscular Hemoglobin Concent 32.8 32-36 g/dl RDW Standard Deviation 46.2 36.4-46.3 fL RDW Coefficient of Variation 12.7 11.5-14.5 % Platelet Count 347 130-400 K/uL Mean Platelet Volume 8.9 7.4-10.4 fL Activated Partial Thromboplast Time 45.8 21.0-31.0 SECONDS Partial Thromboplastin Ratio 1.8 Sodium Level 135 136-145 mmol/L Potassium Level 3.6 3.5-5.1 mmol/L Chloride Level 93 98-107 mmol/L Carbon Dioxide Level 35 21-32 mmol/L Anion Gap 7.0 3-11 mmol/L Blood Urea Nitrogen 7 7-18 mg/dl Creatinine 0.44 0.60-1.40 mg/dl Est Creatinine Clear Calc Drug Dose 162.5 ml/min Estimated GFR () 137.0 Estimated GFR (Non- 118.2 BUN/Creatinine Ratio 16.3 10-20 Random Glucose 101 70-99 mg/dl Calcium Level 8.9 8.5-10.1 mg/dl Urine Color YELLOW Urine Appearance CLEAR CLEAR Urine pH >= 9.0 4.5-7.5 Urine Specific Power 1.018 1.000-1.030 Urine Protein NEG NEG Urine Glucose (UA) NEG NEG Urine Ketones NEG NEG Urine Occult Blood NEG NEG Urine Nitrite NEG NEG Urine Bilirubin NEG NEG Urine Urobilinogen NEG NEG Urine Leukocyte Esterase NEG NEG Assessment and Plan 67 year old male with alcoholism and recent fall presenting with hematuria on admission and found incidentally to have ribs fractures bilaterally. He also has a pneumonia (aspiration vs community acquired). He is not acutely withdrawing at this time but has Librium taper on board for this. Segmental PE with acute hypoxic resp failure - confirmed on chest CT, which was ordered to rule out PE as cause of EKG changes/RV strain and contributor of chest pain/hypoxia. 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 Trops negative on 10/08/17. [facility] consulted - recs appreciated. Mildly elevated troponin level initially thought to be likely due to rib fractures rather than ACS given reproducible nature of chest pain. [place] unlikely ACS but patient likely has underlying atherosclerotic disease. Lipid panel grossly normal. Echo shows mild concentric LVH, LVEF 65-70 %. Abnormal septal motion consistent with RV pressure overload. RV mild to moderately dilated with mild RV dysfunction. No significant valvular pathology. - Continue ASA - Start atorvastatin 40mg given infarct Pneumonia, aspiration vs community-acquired with acute hypoxic resp failure - Completed 7 days of PO Augmentin for anaerobic coverage given aspiration risk and completed 5 days of PO Azithromycin for atypical coverage - O2 via NC, wean as tolerated, keep sats >92% - Continue Mucinex - Encourage use of flutter valve and incentive spirometry - Recommend repeat CXR in 4-6 weeks to assess for resolution of pleural effusions Multiple fractures of ribs bilaterally - s/p recent fall - as noted on admission CT - Continue Oxycodone q4h. Flexeril discontinued as may be contributing to sedation - Encourage use of incentive spirometry - Pain management consulted, recs appreciated T12 vertebral fracture - Pain management as per rib fractures Constipation - Continue bowel regimen: scheduled Colace, Miralax and milk of magnesia PRN Depression - Children note patient is extremely depressed at home; lives alone; drinks morning to nighttime. Has stated to nursing that he has been depressed since of cervical cancer - Titrated bupropion to 150mg BID - Will consider involvement of psychiatry if necessary Emphysema of lung - Continue PRN Duoneb Lung nodules - as noted on CT - Recommend repeat CT in 3 months to re-asses Alcohol abuse - AWSS with Librium discontinued. Ativan previously discontinued due to profound sedation - Continue PO thiamine - Patient declining alcohol rehab Hyponatremia - Likely chronic from alcohol use - Na 135; continue to monitor BMP Reported hematuria on admission - UA negative for blood; CPK normal - Outpatient urology consult for assessment to rule out bladder cancer in smoker with history of hematuria Tobacco abuse - Nicotine patch and Nicorette gum DVT Prophylaxis - SCD Knee, VENKATA Hose - Lovenox Code Status - Level I Full Code Continued [facility] stay due to: ambulation difficulties, home environment unsafe for pt Discharge planning: rehab hospital Resident Tracking Resident Involvement: Resident Care Provided Care Provided: Adult Hospital Medicine Reviewed: Pt Seen/Exam by Me History Resident Physician Supervision Note: I interviewed and examined the patient. Discussed with Dr. Barrios and agree with findings and plan as documented in the note. Any exceptions or clarifications are listed here: Patient improved today, more alert and awake since discontinuing Flexeril. Was out of bed to chair. Has no complaints. He is weaning off oxygen Vitals reviewed NAD, AAO Regular rate and rhythm, no murmurs gallops rubs Lungs diminished at the bases Abdomen positive bowel sounds soft nontender nondistended MSK-positive tenderness to palpation over the anterior rib cage Extremities no edema Echocardiogram with normal EF and evidence of right-sided heart strain with mild RV dysfunction Patient is a 67-year-old male with history of alcohol abuse, current smoker, who presented with recent falls, gross hematuria, productive cough, chest pain and rib fractures, found to have likely aspiration pneumonia, elevated troponin and ECG abnormalities, now also with bilateral pulmonary emboli He was detoxified from alcohol in the beginning of the admission -Found to have bilateral subsegmental pulmonary emboli which is likely contributing to his elevated troponin previously and ECG changes-discontinue IV heparin today and switch to Lovenox bridge with Coumadin to begin. And watch for recurrence of hematuria. Coumadin would likely be the best choice for him given its reversibility in the setting of his history of falls and alcohol abuse. Will need 3-6 months of treatment -Continue pain control but watch for somnolence with opioid use -Repeat urinalysis to ensure no further microscopic hematuria especially in the setting of smoking-high risk for bladder cancer-follow up with urology as outpatient if persistent -Added atorvastatin, continue baby aspirin for likely underlying CAD-needs outpatient stress test at some point in the future as per cardiology recommendations -Stable for discharge at this time-however bed not available at rehabilitation Documented By: Leyla Akbar
[2017-10-09] MEDS: ENOXAPARIN 80 MG/0.8 ML SYR SQ SCH (20:45)
[2017-10-10 07:25] VITALS: BP 120/79; PULSE 83; TEMP 36.9; O2SAT 95
[2017-10-10] MEDS: ASPIRIN 81 MG ECTAB PO SCH (07:59)
[2017-10-10] MEDS: DOCUSATE SODIUM 100 MG CAP PO SCH (07:59)
[2017-10-10] MEDS: THIAMINE HCL 100 MG TAB PO SCH (07:59)
[2017-10-10] MEDS: ATORVASTATIN 40 MG TAB PO SCH (07:59)
[2017-10-10] MEDS: GUAIFENESIN 600 MG TABCR PO SCH (07:59)
[2017-10-10] MEDS: NICOTINE 21 MG/24 HR TDSY TD SCH (08:00)
[2017-10-10] MEDS: ENOXAPARIN 80 MG/0.8 ML SYR SQ SCH (08:00)
[2017-10-10 08:33] LABS: BASO ABS # 0.09 K/uL (0-0.2); EOS % 2.8 %; EOS ABS # 0.24 K/uL (0-0.5); HEMATOCRIT 38.5 % (42-52); HEMOGLOBIN 12.7 g/dL (14.0-18.0); IG# 0.05 K/uL (0.00-0.02); LYMPH % 19.4 %; LYMPH ABS # 1.69 K/uL (1.2-3.4); MEAN CELL VOLUME 100.3 fL (80-100); MEAN CORPUSCULAR HEMOGLOBIN 33.1 pg (25-34); MEAN PLATELET VOLUME 8.9 fL (7.4-10.4); MONO % 14.7 %; MONO ABS # 1.28 K/uL (0.11-0.59); NEUT % 61.5 %; NEUT ABS # 5.35 K/uL (1.4-6.5); PLATELET COUNT 420 K/uL (130-400); RED CELL DISTRIBUTION WIDTH CV 12.5 % (11.5-14.5); RED CELL DISTRIBUTION WIDTH SD 45.6 fL (36.4-46.3)
[2017-10-10 08:46] LABS: PTT PATIENT 32.2 SECONDS (21.0-31.0)
[2017-10-10 09:09] LABS: ALBUMIN 2.3 gm/dl (3.4-5.0); ALKALINE PHOSPHATASE 55 U/L (45-117); ALT/SGPT 15 U/L (12-78); AST/SGOT 16 U/L (15-37); TOTAL PROTEIN 6.3 gm/dl (6.4-8.2)
[2017-10-10 13:06] VITALS: BP 120/79; PULSE 83; TEMP 36.9; O2SAT 95
[2017-10-10] MEDS: OXYCODONE HCL IR 5 MG TAB (IMMEDIATE RELEASE) PO PRN (13:14)
--- NOTE | 2017-10-10 13:21 | Discharge Instructions ---
Discharge Instructions Date of Service Oct 10, 2017. Admission Reason for Admission: Multiple Fractures Of Ribs Of Both Sides, Pna Discharge Discharge Diagnosis / Problem: Rib fractures, PE, pneumonia, alcohol abuse Discharge Goals Goal(s): Decrease discomfort, Improve function Activity Recommendations Activity Limitations: per Instructions/Follow-up section . Instructions / Follow-Up Instructions / Follow-Up 67-year-old male with significant history of alcohol abuse and a recent fall presented with hematuria and found to have bilateral rib fractures, acute hypoxic respiratory failure. He was treated for pneumonia and also found to have subsegmental PE on chest CTA. Recommendations: Segmental PE: - Currently on Coumadin 5 mg daily with a Lovenox bridge - Monitor INR with goal range between 2 and 3 - Discontinue Lovenox after Coumadin therapeutic for at least 2 days , total overlap of at least 5 days - Plan to continue Coumadin for at least 3 months Pneumonia with bilateral pleural effusions: - Already finished course of Augmentin and azithromycin - Repeat chest x-ray in 1-2 weeks for pleural effusions - Continue flutter valve, incentive spirometry, Mucinex CAD/Q waves on EKG: - Lipid panel grossly normal, echo with mild concentric LVH with an ejection fraction of 65-70% - Continue aspirin 81 mg daily and Lipitor 40 mg daily Multiple rib fractures/Vertebral fractures: - Continue oxycodone 5 mg every 4 hours as needed - External application of heat as needed - Encourage use of flutter valve and incentive spirometer Constipation: - Continue Colace - Uses MiraLAX or milk of magnesia as needed Depression: - Continue Wellbutrin 150 mg twice a day Lung nodules on chest CT: - Repeat chest CT in 3 months for reassessment Emphysema: - Continue DuoNeb's Reported hematuria on admission - UA negative for blood; CPK normal - Outpatient urology consult for assessment to rule out bladder cancer in smoker with history of hematuria Tobacco abuse - Nicotine patch and Nicorette gum Alcohol abuse: -Was monitored for withdrawal symptoms but is currently out of the window of withdrawal - Continue by mouth thiamine Current Hospital Diet Patient's current hospital diet: AHA Diet (Heart Healthy) Discharge Diet Recommended Diet: AHA Diet (Heart Healthy) Pending Studies Studies pending at discharge: no Laboratory Results Lipid Panel Test 10/04/17 07:29 Range/Units Triglycerides Level 54 0-150 mg/dl Cholesterol Level 74 0-200 mg/dl HDL Cholesterol 37 mg/dl Cholesterol/HDL Ratio 2.0 LDL Cholesterol, Calculated 26 mg/dl Medical Emergencies . Who to Call and When: Medical Emergencies: If at any time you feel your situation is an emergency, please call 911 immediately. . Non-Emergent Contact Non-Emergency issues call your: Primary Care Provider . . "Provider Documentation" section prepared by Khloe Portillo. . VTE Core Measure Inpt VTE Proph given/why not?: Enoxaparin (Lovenox)SQ Resident Tracking Resident Involvement: Resident Care Provided Care Provided: Adult Hospital Medicine
--- NOTE | 2017-10-10 13:21 | Discharge Summary ---
Discharge Summary Date of Service Oct 10, 2017. Discharge Summary Admission Date: Oct 03, 2017 at 02:34 Discharge Date: Oct 10, 2017 Discharge Disposition: Rehab Principal Diagnosis: Multiple rib fractures, Fall Problems/Secondary Diagnoses: Aspiration Pneumonia Alcohol dependence Gross hematuria Bilateral Subsegmental Pulmonary emboli Acute hypoxic respiratory failure Right ventricular systolic dysfunction-mild Suspected underlying CAD Demand ischemia-elevated troponin Bilateral pleural effusions T12 vertebral compression fracture Constipation Major depressive disorder Emphysema Pulmonary nodules Hyponatremia Tobacco abuse Immunizations: Have You Had Influenza Vaccine: Unknown History of Tetanus Vaccine?: Unknown History of Pneumococcal: Unknown History of Hepatitis B Vaccine: Unknown Procedures: CTA Chest CT Chest Chest xrays x 2 CT abd/pel ECHO Consultations: Cardiology Pain Management Medication Reconciliation New Medications: Aspirin (Aspirin EC Low Dose) 81 Mg Ectab 81 MG PO QAM for 30 Days Atorvastatin (Lipitor) 40 Mg Tab 40 MG PO QAM for 30 Days, #30 TAB Bupropion HCl (Bupropion HCl) 100 Mg Tab 150 MG PO BID for 30 Days, #90 TAB Docusate Sodium (Docusate Sodium) 100 Mg Cap 100 MG PO BID for 30 Days, #60 CAP Enoxaparin (Lovenox) 80 Mg/0.8 Ml Inj 70 MG SQ Q12 for 5 Days Guaifenesin Ext Rel (Mucinex Ext Rel) 600 Mg Tabcr 1200 MG PO Q12 for 15 Days Ipratropium-Albuterol (Duoneb) 3 Ml Nebu 3 ML INH QID PRN for SOB/Wheezing for 15 Days Nicotine (Nicoderm Cq) 21 Mg/24 Hr Dis 1 PATCH TD QAM for 30 Days Nicotine Polacrilex (Nicorelief) 1 Piece Gum 1 PIECE MT PRN PRN for smoking craving for 30 Days Oxycodone HCl (Oxycodone HCl) 5 Mg Tab 5 MG PO Q4H PRN for Pain, #20 TAB Thiamine HCl (Vitamin B-1) 100 Mg Tab 100 MG PO QAM for 30 Days, #30 TAB Warfarin Sod (Coumadin) 5 Mg Tab 5 MG PO DAILY@16 for 30 Days, TAB Discontinued Medications: Aspirin (Aspirin Ec) 81 Mg Tab 162 MG PO DAILY Knvhjgf-Etyfexmuuyovj-Oeykjxri (Excedrin Extra Strength) 1 Tab Tab 1 TAB PO DIRECTED PRN for Pain PT STATES "USUALLY TAKE AT LEAST ONE A DAY". Discharge Exam Feeling more alert and awake today. has some pain with coughing and deep breaths but denies any SOB, CP , palpitations , restlessness Review of Systems: Constitutional: No fever, No chills Eyes: No worsening of vision ENT: No hearing loss Respiratory: No cough, No shortness of breath Cardiovascular: + problem reported (pian with deep inspiration at the fracture sites), No chest pain Abdomen: No pain, No nausea Musculoskeletal: No joint pain Genitourinary - Male: No hematuria, No dysuria Neurologic: No paralysis, No weakness Hospital Course 67-year-old male with significant history of alcohol abuse and a recent fall presented with hematuria and found to have bilateral rib fractures, acute hypoxic respiratory failure. Pneumonia with bilateral pleural effusions: Chest x-ray revealed increased interstitial infiltrate in the right lower base He was initially treated with broad-spectrum antibiotics including vancomycin and Zosyn and Levaquin and later switched to Augmentin and azithromycin. Mucinex for cough along with incentive spirometer and flutter valve for lung expansion Recommend repeat chest x-ray in 1-2 weeks Segmental PE: Chest CTA revealed subsegmental pulmonary emboli within branches of the right middle and left lower lobe pulmonary arteries. No central pulmonary embolus is seen. - Was on heparin drip and eventually started on Coumadin with Lovenox bridge - Monitor INR with goal range between 2 and 3 - Discontinue Lovenox after Coumadin therapeutic for at least 2 days , total overlap of at least 5 days - Plan to continue Coumadin for at least 3 months Troponin elevation /CAD/Q waves on EKG: - Troponin peaked at 0.23 and down trended, combination of demand ischemia - Lipid panel grossly normal, echo with mild concentric LVH with an ejection fraction of 65-70%. Abnormal septal motion consistent with RV pressure overload. - Continue aspirin 81 mg daily and Lipitor 40 mg daily - Follow up with cardiology in about a month Multiple rib fractures/Vertebral fractures status post fall: Was managed with oxycodone 5 mg every 4 hours as needed and external application of heat. Was encouraged to use flutter valve and incentive spirometer Constipation: -Managed with Colace - Use MiraLAX or milk of magnesia as needed Depression: - had with cancer in family states that he had been depressed ever since , was started on Wellbutrin 100 mg BID and titrated up to 150 mg twice a day. Wellbutrin would also help with smoking cessation Lung nodules on chest CT: - Repeat chest CT in 3 months for reassessment Emphysema: - Continue DuoNeb's Reported hematuria on admission - UA negative for blood; CPK normal - Outpatient urology consult for assessment to rule out bladder cancer in smoker with history of hematuria Tobacco abuse - Nicotine patch and Nicorette gum - Continue wellbutrin Alcohol abuse: -Was monitored for withdrawal symptoms with Librium and Ativan as needed - Continue by mouth thiamine Total Time Spent: Greater than 30 minutes This includes examination of the patient, discharge planning, medication reconciliation, and communication with other providers. Discharge Instructions Please refer to the electronic Patient Visit Report (Discharge Instructions) for additional information. Follow-Up Follow up with PCP in about a week Will eventually need outpatient cardiac stress test Follow up CT Chest for pulmonary nodules in 3 months Additional Copies To Tonya Hilliard Resident Tracking Resident Involvement: Resident Care Provided Care Provided: [facility] Medicine Reviewed: Pt Seen/Exam by Me History Resident Physician Supervision Note: I interviewed and examined the patient. Discussed with Dr. Portillo and agree with findings and plan as documented in the note. Any exceptions or clarifications are listed here: Pt doing well, says pain in ribs is controlled, no evidence of bleeding since starting anticoagulation. No substernal pain, no SOB, no cough Vitals reviewed NAD, AAO, sitting in chair by bed Regular rate and rhythm, no murmurs gallops rubs Lungs diminished at the bases Abdomen positive bowel sounds soft nontender nondistended MSK-positive tenderness to palpation over the anterior rib cage Extremities no edema Patient is a 67-year-old male with history of alcohol abuse, current smoker, who presented with recent falls, gross hematuria, productive cough, chest pain and rib fractures, found to have likely aspiration pneumonia, elevated troponin and ECG abnormalities, now also with bilateral pulmonary emboli He was detoxified from alcohol in the beginning of the admission -Found to have bilateral subsegmental pulmonary emboli which is likely contributing to his elevated troponin previously and ECG changes-treated initially with IV heparin and then switched to Lovenox bridge with Coumadin. Should watch for recurrence of hematuria he had subjectively on admission, none here. Coumadin is the best choice for him given its reversibility in the setting of his history of falls and alcohol abuse. Will need 3-6 months of treatment -Continue pain control but watch for somnolence with opioid use -Repeat urinalysis was negative for occult blood to ensure no further microscopic hematuria especially in the setting of smoking-high risk for bladder cancer-follow up with urology as outpatient if persistent -Added atorvastatin, continue baby aspirin for likely underlying CAD-needs outpatient stress test at some point in the future as per cardiology recommendations -completed course of antibiotics for aspiration PNA -Stable for discharge at this time Documented By: Leyla Akbar
[2017-10-10] MEDS ORDERED: NICO21DI4 TD (13:23)
[2017-10-10] MEDS ORDERED: LPT40 PO (13:23)
[2017-10-10] MEDS ORDERED: CLC100 PO (13:23)
[2017-10-10] MEDS ORDERED: IPRASOL4 INH (13:23)
[2017-10-10] MEDS ORDERED: THM100 PO (13:23)
[2017-10-10] MEDS ORDERED: GFNSR600 PO (13:23)
[2017-10-10] MEDS ORDERED: WLL100 PO (13:23)
[2017-10-10] MEDS ORDERED: ASPEC81 PO (13:23)
[2017-10-10] MEDS ORDERED: NCR2 MT (13:23)
[2017-10-10] MEDS ORDERED: LVNIS80 SQ (13:23)
[2017-10-10] MEDS ORDERED: CMD5 PO (13:23)
[2017-10-10] MEDS ORDERED: RXC5 PO (13:26)
== END 2017-10-10 14:30 | DRG 177 ==
LOC: C.EDB 20:44 → MERGE 10-03 02:34 → C.2T 10-03 02:34 → ENRESERV 10-03 02:48 → C.2T 10-03 16:14 → ENRESERV 10-07 12:58 → C.MS2W 10-07 14:34
PROVIDERS: ADMIT Student in an Organized Health Care Education/Training Program; ATTEND Family Medicine
DX: J69.0 Pneumonitis due to inhalation of food and vomit (principal); I26.99 Other pulmonary embolism without acute cor pulmonale; J96.01 Acute respiratory failure with hypoxia; S22.43XA Multiple fractures of ribs, bilateral, initial encounter for closed fracture; S22.080A Wedge compression fracture of T11-T12 vertebra, initial encounter for closed fracture; I24.8 Other forms of acute ischemic heart disease; F10.239 Alcohol dependence with withdrawal, unspecified; E87.1 Hypo-osmolality and hyponatremia; J18.1 Lobar pneumonia, unspecified organism; W19.XXXA Unspecified fall, initial encounter; I25.10 Atherosclerotic heart disease of native coronary artery without angina pectoris; J43.9 Emphysema, unspecified; K52.9 Noninfective gastroenteritis and colitis, unspecified; R82.90 Unspecified abnormal findings in urine; F32.9 Major depressive disorder, single episode, unspecified; R94.31 Abnormal electrocardiogram [ECG] [EKG]; R07.89 Other chest pain; W06.XXXA Fall from bed, initial encounter; Y92.230 Patient room in hospital as the place of occurrence of the external cause; K59.00 Constipation, unspecified; R91.8 Other nonspecific abnormal finding of lung field; F17.210 Nicotine dependence, cigarettes, uncomplicated; Z79.82 Long term (current) use of aspirin

== ENCOUNTER 2018-10-25 17:17 | Inpatient (IN) ==
[2018-10-25] MEDS ORDERED: ALBUT/IPRATROP 3MG/0.5MG NEB 3 ML VIAL ONE (17:36)
[2018-10-25] MEDS ORDERED: methylPREDNISolone 125 MG/2 ML VIAL IV STA (17:42)
[2018-10-25] MEDS ORDERED: MAGNESIUM SULFATE / D5W 1 GM/100 ML BAG IV ONE (17:42)
[2018-10-25] MEDS ORDERED: ALBUT/IPRATROP 3MG/0.5MG NEB 3 ML VIAL NEB STA (17:43)
[2018-10-25] MEDS ORDERED: ALBUT/IPRATROP 3MG/0.5MG NEB 3 ML VIAL NEB ONE (17:45)
--- NOTE | 2018-10-25 18:13 | XRay Report ---
XR chest 1V portable CLINICAL HISTORY: sob, cough COMPARISON STUDY: 10/08/2017 FINDINGS: Mild emphysematous change. Chronic prominence of the central pulmonary vasculature. Diaphra gms are smooth. No acute infiltrate. IMPRESSION: Mild emphysematous change. No acute process. The above report was generated using voice recognition software. It may contain grammatical, syntax or spelling errors. Electronically signed by: Chicho Pettit M.D. 10/25/2018 6:12 PM
[2018-10-25 18:17] LABS: Basophils # (auto) 0.05 K/uL (0-0.2); Basophils % (auto) 0.7 %; Eosinophils # (auto) 0.04 K/uL (0-0.5); Eosinophils % (auto) 0.6 %; Hematocrit (blood only) 46.8 % (42-52); Hemoglobin 15.3 g/dL (14.0-18.0); Immature Granulocytes # (auto) 0.02 K/uL (0.00-0.02); Immature Granulocytes % (auto) 0.3 %; Lymphocytes # (auto) 1.88 K/uL (1.2-3.4); Lymphocytes % (auto) 27.3 %; Mean Corpuscular Hgb Conc 32.7 g/dL (32-36); Mean Corpuscular Volume 93.2 fL (80-100); Mean Platelet Volume 10.1 fL (7.4-10.4); Monocytes # (auto) 1.02 K/uL (0.11-0.59); Monocytes % (auto) 14.8 %; Neutrophils # (auto) 3.88 K/uL (1.4-6.5); Neutrophils % (auto) 56.3 %; Platelet Count 258 K/uL (130-400); RDW Coefficient of Variation 13.6 % (11.5-14.5); RDW Standard Deviation 46.4 fL (36.4-46.3); Red Blood Count 5.02 M/uL (4.7-6.1); White Blood Count 6.89 K/uL (4.8-10.8)
[2018-10-25 18:28] LABS: Allen Test Pos (Pos); HCO3 ABG 30 mmol/L (19-24); Oxygen Saturation ABG 96.2 % (90-95); PCO2 ABG 52 mmHg (35-46); PO2 ABG 84 mm/Hg (80-95); pH ABG 7.38 (7.35-7.45)
[2018-10-25 18:31] LABS: Influenza B virus by PCR Neg for Influ B (Neg)
[2018-10-25 18:33] LABS: Alanine Aminotransferase 20 U/L (12-78); Albumin Level 3.7 gm/dl (3.4-5.0); Aspartate Aminotransferase 24 U/L (15-37); BUN Creatinine Ratio 21.4 (10-20); Blood Urea Nitrogen 13 mg/dl (7-18); Calcium 8.9 mg/dl (8.5-10.1); Carbon Dioxide 31 mmol/L (21-32); Chloride 98 mmol/L (98-107); Est GFR (African American) 118.9; Est GFR (Non-African American) 102.6; Glucose 106 mg/dl (70-99); Magnesium 1.9 mg/dl (1.8-2.4); Potassium 3.8 mmol/L (3.5-5.1); Sodium 139 mmol/L (136-145)
[2018-10-25 18:42] LABS: Albumin Globulin Ratio 0.9 (0.9-2); Alkaline Phosphatase 60 U/L (45-117); Bilirubin,Total 0.6 mg/dl (0.2-1); Globulin 4.3 gm/dl (2.5-4.0); NT Pro B Type Natriuretic Pept 1590 pg/ml (0-900); Troponin I 0.432 ng/ml (0-0.045)
[2018-10-25] MEDS ORDERED: ASPIRIN 325 MG ECTAB PO STA (18:45)
[2018-10-25] MEDS ORDERED: NITROGLYCERIN 2% OINTMENT 30GM TUBE EXT ONE (18:45)
[2018-10-25] MEDS ORDERED: SODIUM CHLORIDE 0.9% 1000ML 1,000 ML IV SCH (19:15)
[2018-10-25] MEDS ORDERED: POTASSIUM CHLORIDE 20 MEQ TABCR PO STA (19:30)
[2018-10-25] MEDS ORDERED: FUROSEMIDE 40 MG/4 ML VIAL IV STA (19:31)
[2018-10-25] MEDS ORDERED: METOPROLOL TARTRATE 25 MG TAB PO STA (19:57)
--- NOTE | 2018-10-25 19:59 | History & Physical Report ---
Date of Service October 25, 2018 Assessment & Plan (1) Acute hypoxemic respiratory failure: Secondary to COPD exacerbation secondary to influenza pneumonia Pulmonary congestion contributory Some improvement after initial intervention at the ER hypertension, slight elevated Elevated troponin secondary respiratory illness hx PE status post Coumadin White's palsy status post steroid Rx Ongoing tobacco abuse Past alcohol abuse Medical telemetry Supplemental O2 Nebs, prednisone course Tamiflu course Pulmonary consult in a.m. if without improvement RE COPD exacerbation Lasix 1 dose Follow troponin, TTE RE elevated troponin Nicotine patch DVT prophylaxis. Lovenox subcu Full code History of Present Illness Chief Complaint: Shortness of breath Primary Care Provider: Ronald Ribera MD History obtained from patient and records. Medical history significant for hypertension, hyperlipidemia, COPD as per records, ongoing tobacco abuse, past alcohol abuse, hx White's palsy status post steroid Rx Recent confinement September 2017 for pneumonia, subsegmental PE, multiple rib fractures. Patient subsequently completed 3-month Coumadin course outpatient. Few days history of cough symptoms, unable to expectorate, sick contacts, malaise, worsening shortness of breath. No chest pain. At the ER, patient received Solu-Medrol and neb treatment for possible COPD exacerbation. Aspirin and nitro patch administered for elevated troponin. 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 Allergies Allergy/AdvReac Type Severity Reaction Status Date / Time No Known Allergies Allergy Unverified 10/25/18 17:52 Home Medications Home Medications Medication Instructions Recorded Confirmed Type aspirin 81 mg PO QAM 10/25/18 10/25/18 History atorvastatin 40 mg PO QAM 10/25/18 10/25/18 History metoprolol succinate 25 mg PO QAM 10/25/18 10/25/18 History vqaxxufwh-FO-vgareidp-guaifen 20 ml PO Q4H 10/25/18 10/25/18 History [Mucinex Cold,Flu,Sore Throat] Past Med/Surg History Medical History White's palsy (Acute) Emphysema of lung (Chronic) Pulmonary embolism (Resolved) Social History Current Living Situation: Alone Feels Safe at Home: Yes Safety Concerns: Feels Safe At This Time Smoking Status: Current every day smoker Tobacco Type: cigarettes Cigarettes per Day: 20 Hx Alcohol Use: No Hx Substance Use: No Beliefs That Will Affect Care: None Preferred Language: [place] Communication Ability: Effective Night Auditor Required: No Review of Systems As per HPI, all 10 systems reviewed, all other ROS negative Physical Exam 2 Vital Signs (Past 24 Hours): Last Vital Signs Temp 37.5 C 10/25/18 19:31 Pulse 108 H 10/25/18 19:31 Resp 28 H 10/25/18 19:31 BP 154/90 H 10/25/18 19:31 Pulse Ox 96 10/25/18 19:35 Physical Exam: GENERAL: Slightly anxious/uncomfortable, minimal respiratory distress SKIN: Normal color, warm HEENT: [place] palpebral conjunctivae, no ptosis, dry buccal mucosa, left facial symmetry NECK : Supple, no tenderness CHEST : Decreased breath sounds, expiratory wheezes , no tenderness HEART : Tachycardic , no obvious murmurs ABDOMEN: Some distention, nontender EXTREMITIES : No LE swelling/tenderness, no other conspicuous deformities noted NEUROLOGIC : Coherent, L facial asymmetry, no other gross focality Results & Data Laboratory Results Laboratory Results WBC 6.89 K/uL (4.8-10.8) 10/25/18 17:52 RBC 5.02 M/uL (4.7-6.1) 10/25/18 17:52 Hgb 15.3 g/dL (14.0-18.0) 10/25/18 17:52 Hct 46.8 % (42-52) 10/25/18 17:52 MCV 93.2 fL (80-100) 10/25/18 17:52 MCH 30.5 pg (25-34) 10/25/18 17:52 MCHC 32.7 g/dL (32-36) 10/25/18 17:52 RDW Std Deviation 46.4 fL (36.4-46.3) H 10/25/18 17:52 RDW Coeff of Isaiah 13.6 % (11.5-14.5) 10/25/18 17:52 Plt Count 258 K/uL (130-400) 10/25/18 17:52 MPV 10.1 fL (7.4-10.4) 10/25/18 17:52 Immature Gran % (Auto) 0.3 % 10/25/18 17:52 Neut % (Auto) 56.3 % 10/25/18 17:52 Lymph % (Auto) 27.3 % 10/25/18 17:52 Vernon % (Auto) 14.8 % 10/25/18 17:52 Eos % (Auto) 0.6 % 10/25/18 17:52 Baso % (Auto) 0.7 % 10/25/18 17:52 Immature Gran # (Auto) 0.02 K/uL (0.00-0.02) 10/25/18 17:52 Neut # (Auto) 3.88 K/uL (1.4-6.5) 10/25/18 17:52 Lymph # (Auto) 1.88 K/uL (1.2-3.4) 10/25/18 17:52 Vernon # (Auto) 1.02 K/uL (0.11-0.59) H 10/25/18 17:52 Eos # (Auto) 0.04 K/uL (0-0.5) 10/25/18 17:52 Baso # (Auto) 0.05 K/uL (0-0.2) 10/25/18 17:52 D-Dimer 330 ug/L FEU (0-500) 10/25/18 17:52 ABG pH 7.38 (7.35-7.45) 10/25/18 18:12 ABG pCO2 52 mmHg (35-46) H 10/25/18 18:12 ABG pO2 84 mm/Hg (80-95) 10/25/18 18:12 ABG HCO3 30 mmol/L (19-24) H 10/25/18 18:12 ABG O2 Saturation 96.2 % (90-95) H 10/25/18 18:12 ABG Base Excess 4.0 mEq/L (-9-1.8) H 10/25/18 18:12 Ayaan Test Pos (Pos) 10/25/18 18:12 Barometric Pressure 732.2 mm/Hg 10/25/18 18:12 Oxygen Given 2 L 10/25/18 18:12 Sodium 139 mmol/L (136-145) 10/25/18 17:52 Potassium 3.8 mmol/L (3.5-5.1) 10/25/18 17:52 Chloride 98 mmol/L (98-107) 10/25/18 17:52 Carbon Dioxide 31 mmol/L (21-32) 10/25/18 17:52 Anion Gap 10.0 (3-11) 10/25/18 17:52 BUN 13 mg/dl (7-18) 10/25/18 17:52 Creatinine 0.61 mg/dl (0.6-1.4) 10/25/18 17:52 Est Cr Clr Drug Dosing Not Reportable 10/25/18 17:52 Est GFR ( Amer) 118.9 10/25/18 17:52 Est GFR (Non-Af Amer) 102.6 10/25/18 17:52 BUN/Creatinine Ratio 21.4 (10-20) H 10/25/18 17:52 Glucose 106 mg/dl (70-99) H 10/25/18 17:52 POC Lactic Acid Estrada 1.31 mmol/L (0.90-1.70) 10/25/18 17:58 Calcium 8.9 mg/dl (8.5-10.1) 10/25/18 17:52 Magnesium 1.9 mg/dl (1.8-2.4) 10/25/18 17:52 Total Bilirubin 0.6 mg/dl (0.2-1) 10/25/18 17:52 AST 24 U/L (15-37) 10/25/18 17:52 ALT 20 U/L (12-78) 10/25/18 17:52 Alkaline Phosphatase 60 U/L (45-117) 10/25/18 17:52 Troponin I 0.432 ng/ml (0-0.045) H* 10/25/18 17:52 NT-Pro-B Natriuret Pep 1590 pg/ml (0-900) H 10/25/18 17:52 Total Protein 8.0 gm/dl (6.4-8.2) 10/25/18 17:52 Albumin 3.7 gm/dl (3.4-5.0) 10/25/18 17:52 Globulin 4.3 gm/dl (2.5-4.0) H 10/25/18 17:52 Albumin/Globulin Ratio 0.9 (0.9-2) 10/25/18 17:52 Influenza Type A (PCR) Pos for Influ A (Neg) A* 10/25/18 17:40 Influenza Type B (PCR) Neg for Influ B (Neg) 10/25/18 17:40 Diagnostic Findings Chest x-ray showed emphysema EKG as per my interpretation : 85, NSR, LAE, septal infarct, PRWP
--- NOTE | 2018-10-25 20:00 | Emergency Department Note ---
Entered by Sheree Velazquez acting as a scribe for Meghna Laboy DO History of Present Illness General Chief complaint: Shortness of Breath/Dyspnea Stated complaint: COUGH,SOB,FEVER Time Seen by Provider: 10/25/18 17:31 Source: patient and family History of Present Illness Provider complaint: shortness of breath Onset (ago): week(s) (1 week ago) Location: chest Quality: + other (shortness of breath) Associated symptoms: + cough, + fever/chills (febrile at 102.3), + loss of appetite, + nausea/vomiting (nausea) and + other (diarrhea); no chest pain The patient is a 68 year old male who presents to the Emergency Room with complaints of shortness of breath beginning 1 week ago. He reports a history of 8 broken ribs and a pulmonary embolism 1 year ago. He states that he takes an aspirin but is no longer on Coumadin. Per family, the patient was around her sick daughter. The patient states that he has been febrile. Per family, the patient's temperature was 102.3 three days ago. He reports that he has a cough but states that he has only been coughing up a little. Per family, the patient has not been eating much. The patient does report feeling nauseous and having two episodes of diarrhea yesterday. He states that his diarrhea was dark green but states that it was not bloody. The patient denies having chest pain. He states that he does not wear Oxygen at home and that he does not use inhalers or Albuterol. Per family, the patient did have a harder time breathing in the summer when it was more humid. The patient denies a history of an intubation. 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 His family states that the patient has never had a heart attack of chf before. Per nursing staff, the patient was 86 on room air in triage. Home Medications Home Medications Medication Instructions Recorded Confirmed Type aspirin 81 mg PO QAM 10/25/18 10/25/18 History atorvastatin 40 mg PO QAM 10/25/18 10/25/18 History metoprolol succinate 25 mg PO QAM 10/25/18 10/25/18 History [id number]-guaifen 20 ml PO Q4H 10/25/18 10/25/18 History [Mucinex Cold,Flu,Sore Throat] Allergies Allergy/AdvReac Type Severity Reaction Status Date / Time No Known Allergies Allergy Unverified 10/25/18 17:52 Past Med/Surg History Medical History White's palsy (Acute) Emphysema of lung (Chronic) Pulmonary embolism (Resolved) Social History Current Living Situation: Alone Feels Safe at Home: Yes Safety Concerns: Feels Safe At This Time Smoking Status: Current every day smoker Tobacco Type: cigarettes Cigarettes per Day: 20 Hx Alcohol Use: No Hx Substance Use: No Beliefs That Will Affect Care: None Preferred Language: Frisian Communication Ability: Effective Dry 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 and A total of 10 systems reviewed and were otherwise negative Physical Exam Vital Signs Vital Signs - 24 hr 10/26/18 23:00 10/26/18 23:10 10/27/18 00:00 Temperature 37.1 C Temperature Source Oral Pulse Rate Pulse Rate [Apical] 78 Pulse Rate [Finger] 74 Pulse Strength [Finger] Normal Respiratory Rate 18 18 Respiratory Effort / Characteristics Non-Labored Spontaneous Non-Labored Spontaneous Respiratory Depth Normal Normal Respiratory Pattern Regular Blood Pressure [Left Arm] Blood Pressure [Right Arm] 126/76 Blood Pressure Mean [Left Arm] Blood Pressure Mean [Right Arm] 92 Blood Pressure Position [Left Arm] Blood Pressure Position [Right Arm] Sitting Pulse Oximetry 90 91 Oxygen Delivery Method Room Air Room Air Nasal Cannula Oxygen Flow Rate 2 10/27/18 00:51 10/27/18 04:00 10/27/18 07:03 Temperature 36.8 C Temperature Source Oral Pulse Rate 78 Pulse Rate [Apical] Pulse Rate [Finger] 69 65 Pulse Strength [Finger] Normal Respiratory Rate 18 16 Respiratory Effort / Characteristics Non-Labored Spontaneous Respiratory Depth Normal Respiratory Pattern Blood Pressure [Left Arm] 139/73 Blood Pressure [Right Arm] Blood Pressure Mean [Left Arm] 95 Blood Pressure Mean [Right Arm] Blood Pressure Position [Left Arm] Lying Blood Pressure Position [Right Arm] Pulse Oximetry 94 95 Oxygen Delivery Method Nasal Cannula Nasal Cannula Oxygen Flow Rate 2 3 10/27/18 07:13 10/27/18 07:40 10/27/18 11:03 Temperature 36.6 C Temperature Source Oral Pulse Rate 85 Pulse Rate [Apical] 60 61 Pulse Rate [Finger] Pulse Strength [Finger] Respiratory Rate 20 16 Respiratory Effort / Characteristics Non-Labored Spontaneous Respiratory Depth Respiratory Pattern Blood Pressure [Left Arm] Blood Pressure [Right Arm] 128/74 Blood Pressure Mean [Left Arm] Blood Pressure Mean [Right Arm] 92 Blood Pressure Position [Left Arm] Blood Pressure Position [Right Arm] Pulse Oximetry 94 97 Oxygen Delivery Method Nasal Cannula Oxygen Flow Rate 3 10/27/18 11:51 10/27/18 15:04 10/27/18 15:25 Temperature 36.3 C L 36.2 C L Temperature Source Oral Oral Pulse Rate Pulse Rate [Apical] 62 74 74 Pulse Rate [Finger] Pulse Strength [Finger] Respiratory Rate 18 16 16 Respiratory Effort / Characteristics Non-Labored Spontaneous Respiratory Depth Respiratory Pattern Blood Pressure [Left Arm] Blood Pressure [Right Arm] 125/75 126/75 Blood Pressure Mean [Left Arm] Blood Pressure Mean [Right Arm] 91 92 Blood Pressure Position [Left Arm] Blood Pressure Position [Right Arm] Pulse Oximetry 96 90 89 L Oxygen Delivery Method Room Air Oxygen Flow Rate 10/27/18 19:21 Temperature Temperature Source Pulse Rate Pulse Rate [Apical] 70 Pulse Rate [Finger] Pulse Strength [Finger] Respiratory Rate 16 Respiratory Effort / Characteristics Non-Labored Spontaneous Respiratory Depth Respiratory Pattern Blood Pressure [Left Arm] Blood Pressure [Right Arm] Blood Pressure Mean [Left Arm] Blood Pressure Mean [Right Arm] Blood Pressure Position [Left Arm] Blood Pressure Position [Right Arm] Pulse Oximetry 92 Oxygen Delivery Method Room Air Oxygen Flow Rate GENERAL: alert, ill- appearing, well nourished, no distress, non-toxic EYE EXAM: normal conjunctiva, PERRL and EOM's grossly intact, decreased frequency of blinking noted at the left eye, otherwise unremarkable eye exam OROPHARYNX: no exudate, no erythema, lips, buccal mucosa, and tongue normal and mucous membranes are dry NECK: supple, no nuchal rigidity, no adenopathy, non-tender LUNGS: Barrel chested. Increased work of breathing, pursued lip breathing. Markedly diminished breath sounds bilaterally. HEART: no murmurs, S1 normal and S2 normal ABDOMEN: abdomen soft, non-tender, normo-active bowel sounds, no masses, no rebound or guarding. BACK: Back is symmetrical on inspection and there is no deformity, no midline tenderness, no CVA tenderness. SKIN: no rashes and no bruising UPPER EXTREMITIES: upper extremities are grossly normal. FROM, nml pulses b/l. LOWER EXTREMITIES: No pitting edema. FROM, nml pulses b/l. NEURO EXAM: Normal sensorium, cranial nerves II-XII intact, normal speech, no weakness of arms, no weakness of legs. Course 173: Past medical records reviewed. The patient was evaluated in room C3, and a complete history and physical examination were performed. 1800: I rechecked the patient. He is moving more air, however now with more wheezing. 0: I checked on the patient. His family thinks that his work of breathing has improved. He has bilateral wheezing and is on medication for treatment right now. 1902: I reassessed the patient, he looks more comfortable. I updated him and he verbalized agreement and understanding of the treatment plan. 1919: I discussed the patient's case with Dr. Lomax who will evaluate the patient for further management. 2003: I checked on the patient. He states that he doesn't think that he needs BiPAP. He denies having chest pain currently and states that he feels like his breathing has slightly improved. Consultations Consultation #1: Dr. Lomax Time: 19:20 Administered Medications Acetaminophen (Tylenol) 650 mg PO Q4H PRN PRN Reason: Pain or Fever Stop: 11/24/18 21:42 Last Admin: 10/27/18 16:43 Dose: 650 mg [facility]) [facility] Stop: 11/25/18 08:59 Last Admin: 10/27/18 09:19 Dose: 81 mg Admin: 10/26/18 08:26 Dose: 81 mg Atorvastatin Calcium (Lipitor) [facility] Stop: 11/25/18 08:59 Last Admin: 10/27/18 09:19 Dose: 40 mg Admin: 10/26/18 08:26 Dose: 40 mg Enoxaparin Sodium (Lovenox) 30 mg SQ QAM [facility] Stop: 11/25/18 08:59 Last Admin: 10/27/18 09:20 Dose: 30 mg Admin: 10/26/18 08:27 Dose: 30 mg Guaifenesin (Mucinex) 600 mg PO Q12 [facility] Stop: 11/24/18 21:42 Last Admin: 10/27/18 09:18 Dose: 600 mg Admin: 10/26/18 21:36 Dose: 600 mg Admin: 10/26/18 08:26 Dose: 600 mg Admin: 10/25/18 22:56 Dose: 600 mg Insulin Aspart (Novolog Flexpen) 0 units SC ACHS ISAEL Stop: 11/25/18 01:24 Last Admin: 10/27/18 18:10 Dose: 2 units Admin: 10/27/18 12:58 Dose: 3 units Admin: 10/27/18 09:22 Dose: 2 units Admin: 10/26/18 21:37 Dose: Not Given Admin: 10/26/18 18:16 Dose: 5 units Admin: 10/26/18 12:58 Dose: 2 units Admin: 10/26/18 08:30 Dose: 2 units Admin: 10/26/18 01:54 Dose: 2 units Insulin Glargine (Lantus Solostar Pen) 5 units SC HS ISAEL Stop: 11/25/18 01:24 Last Admin: 10/26/18 21:35 Dose: 5 units Admin: 10/26/18 01:52 Dose: 5 units Ipratropium Draper (Atrovent 0.02% 0.5mg/2.5ml) 0.5 mg INH Q4R ISAEL Stop: 11/25/18 00:00 Last Admin: 10/27/18 19:19 Dose: 0.5 mg Admin: 10/27/18 15:03 Dose: 0.5 mg Admin: 10/27/18 11:02 Dose: 0.5 mg Admin: 10/27/18 07:02 Dose: 0.5 mg Admin: 10/27/18 03:11 Dose: Not Given Admin: 10/26/18 23:10 Dose: 0.5 mg Admin: 10/26/18 18:59 Dose: 0.5 mg Admin: 10/26/18 15:18 Dose: 0.5 mg Admin: 10/26/18 11:08 Dose: 0.5 mg Admin: 10/26/18 07:04 Dose: 0.5 mg Admin: 10/26/18 03:01 Dose: Not Given Admin: 10/25/18 23:14 Dose: 0.5 mg Levalbuterol HCl (Xopenex 1.25mg/0.5ml Neb) 1.25 mg INH Q4R ISAEL Stop: 11/25/18 00:00 Last Admin: 10/27/18 19:19 Dose: 1.25 mg Admin: 10/27/18 15:03 Dose: 1.25 mg Admin: 10/27/18 11:01 Dose: 1.25 mg Admin: 10/27/18 07:02 Dose: 1.25 mg Admin: 10/27/18 03:11 Dose: Not Given Admin: 10/26/18 23:08 Dose: 1.25 mg Admin: 10/26/18 18:59 Dose: 1.25 mg Admin: 10/26/18 15:18 Dose: 1.25 mg Admin: 10/26/18 11:08 Dose: 1.25 mg Admin: 10/26/18 07:04 Dose: 1.25 mg Admin: 10/26/18 03:01 Dose: Not Given Admin: 10/25/18 23:14 Dose: 1.25 mg Metoprolol Succinate (Toprol Xl) 50 mg PO [facility] Stop: 11/26/18 08:59 Last Admin: 10/27/18 09:17 Dose: 50 mg Miscellaneous (Remove Nicoderm Patch) 1 ea N/A HS [facility] Stop: 11/24/18 21:42 Last Admin: 10/26/18 21:38 Dose: 1 ea Admin: 10/26/18 00:53 Dose: Not Given Nicotine (Nicoderm Cq) 14 mg TD [facility] Stop: 11/24/18 20:04 Last Admin: 10/27/18 09:19 Dose: 14 mg Admin: 10/26/18 10:21 Dose: 14 mg Admin: 10/26/18 00:51 Dose: 14 mg Oseltamivir Phosphate (Tamiflu) 75 mg PO BID [facility] Stop: 10/30/18 19:39 Last Admin: 10/27/18 09:18 Dose: 75 mg Admin: 10/26/18 21:37 Dose: 75 mg Admin: 10/26/18 08:26 Dose: 75 mg Admin: 10/26/18 00:54 Dose: 75 mg Prednisone (Prednisone) 40 mg PO DAILY [facility] Stop: 10/30/18 08:59 Last Admin: 10/27/18 09:18 Dose: 40 mg Admin: 10/26/18 08:26 Dose: 40 mg Discontinued Medications Albuterol (Duoneb) Confirm Administered Dose 3 ml .ROUTE .STK-MED ONE Stop: 10/25/18 17:37 Last Admin: 10/25/18 17:37 Dose: 3 ml Albuterol (Duoneb) 3 ml NEB NOW STA Stop: 10/25/18 17:44 Last Admin: 10/25/18 17:55 Dose: Not Given Albuterol (Duoneb) 12 ml NEB ONE ONE Stop: 10/25/18 17:46 Last Admin: 10/25/18 18:12 Dose: 12 ml Aspirin (Ecotrin) 325 mg PO NOW STA Stop: 10/25/18 18:46 Last Admin: 10/25/18 19:27 Dose: 325 mg Furosemide (Lasix) 20 mg IV NOW STA Stop: 10/25/18 19:32 Last Admin: 10/25/18 20:27 Dose: 20 mg Magnesium Sulfate/Dextrose (Magnesium Sulfate / D5w) 1 gm in 100 mls @ 100 mls/ hr IV ONE ONE Stop: 10/25/18 18:41 Last Infusion: 10/25/18 19:46 Dose: 0 mls/hr Admin: 10/25/18 18:02 Dose: 100 mls/hr Sodium Chloride (Nss 1000ml) 1,000 mls @ 250 mls/hr IV .Q4H ISAEL Stop: 11/24/18 19:14 Last Admin: 10/25/18 19:45 Dose: Not Given Albumin Human (Albumin 25%) 50 mls @ 50 mls/hr IV ONE ONE Stop: 10/25/18 22:42 Last Infusion: 10/26/18 00:16 Dose: 0 mls/hr Admin: 10/25/18 22:57 Dose: 50 mls/hr Digoxin 250 mcg/ Syringe 10 mls @ 2 mls/min IV NOW STA Stop: 10/26/18 01:28 Last Admin: 10/26/18 01:44 Dose: 2 mls/min Albumin Human (Albumin 25%) 50 mls @ 50 mls/hr IV ONE ONE Stop: 10/26/18 02:21 Last Infusion: 10/26/18 02:58 Dose: 0 mls/hr Admin: 10/26/18 01:55 Dose: 50 mls/hr Digoxin 250 mcg/ Syringe 10 mls @ 2 mls/min IV NOW STA Stop: 10/26/18 02:28 Last Admin: 10/26/18 02:44 Dose: 2 mls/min Magnesium Sulfate/Dextrose (Magnesium Sulfate / D5w) 1 gm in 100 mls @ 100 mls/ hr IV ONE ONE Stop: 10/26/18 04:21 Last Infusion: 10/26/18 04:52 Dose: 0 mls/hr Admin: 10/26/18 03:45 Dose: 100 mls/hr Albumin Human (Albumin 25%) 50 mls @ 50 mls/hr IV ONE ONE Stop: 10/26/18 04:28 Last Infusion: 10/26/18 04:51 Dose: 0 mls/hr Admin: 10/26/18 04:01 Dose: 50 mls/hr Digoxin 250 mcg/ Syringe 10 mls @ 2 mls/min IV NOW STA Stop: 10/26/18 03:38 Last Admin: 10/26/18 03:49 Dose: 2 mls/min Furosemide 40 mg/ Syringe 4 mls @ 4 mls/min IV ONE ONE Stop: 10/27/18 15:31 Last Admin: 10/27/18 16:43 Dose: 4 mls/min Methylprednisolone (Solumedrol) 125 mg IV NOW STA Stop: 10/25/18 17:43 Last Admin: 10/25/18 18:02 Dose: 125 mg Metoprolol Succinate (Toprol Xl) 25 mg PO [facility] Stop: 11/25/18 03:59 Last Admin: 10/26/18 08:27 Dose: 25 mg Admin: 10/26/18 04:56 Dose: 25 mg Metoprolol Tartrate (Lopressor) 12.5 mg PO NOW STA Stop: 10/25/18 19:58 Last Admin: 10/25/18 20:26 Dose: 12.5 mg Metoprolol Tartrate (Lopressor) 2.5 mg IV NOW STA Stop: 10/26/18 02:16 Last Admin: 10/26/18 02:59 Dose: Not Given Nitroglycerin (Nitro-Bid 2%) 1 inch EXT NOW ONE Stop: 10/25/18 18:46 Last Admin: 10/25/18 18:59 Dose: 1 inch Potassium Chloride (Klor-Con M20) 20 meq PO NOW STA Stop: 10/25/18 19:31 Last Admin: 10/25/18 20:26 Dose: 20 meq Potassium Chloride (Klor-Con M20) 40 meq PO NOW STA Stop: 10/26/18 01:21 Last Admin: 10/26/18 01:51 Dose: 40 meq Potassium Chloride (Klor-Con M20) 20 meq PO NOW STA Stop: 10/26/18 03:25 Last Admin: 10/26/18 05:07 Dose: 20 meq Medical Decision Making Differential Diagnosis Differential diagnosis: Etiologies such as infections, reactive airway disease, COPD, pneumonia, pleural effusion, pulmonary edema, ARDS, pneumothorax, CHF, cardiac ischemia, cardiac tamponade, dysrhythmia, anemia, pulmonary embolism, musculoskeletal, gastrointestinal process, as well as others were entertained. Medical Records Attestation: I reviewed the patient's medical records. Home Medications Current Medication List: was personally reviewed by me Laboratory Data Attestation: I reviewed the patient's lab results. Result diagrams: 10/27/18 07:30 10/27/18 07:30 Lab Results 10/25/18 10/25/18 10/25/18 Range/Units 17:40 17:52 17:52 WBC 6.89 (4.8-10.8) K/uL RBC 5.02 (4.7-6.1) M/uL Hgb 15.3 (14.0-18.0) g/dL Hct 46.8 (42-52) % MCV 93.2 (80-100) fL MCH 30.5 (25-34) pg MCHC 32.7 (32-36) g/dL RDW Std Deviation 46.4 H (36.4-46.3) fL RDW Coeff of Isaiah 13.6 (11.5-14.5) % Plt Count 258 (130-400) K/uL MPV 10.1 (7.4-10.4) fL Immature Gran % (Auto) 0.3 % Neut % (Auto) 56.3 % Lymph % (Auto) 27.3 % [place] % (Auto) 14.8 % Eos % (Auto) 0.6 % Baso % (Auto) 0.7 % Immature Gran # (Auto) 0.02 (0.00-0.02) K/uL Neut # (Auto) 3.88 (1.4-6.5) K/uL Lymph # (Auto) 1.88 (1.2-3.4) K/uL [place] # (Auto) 1.02 H (0.11-0.59) K/uL Eos # (Auto) 0.04 (0-0.5) K/uL Baso # (Auto) 0.05 (0-0.2) K/uL PT (9.0-12.0) Seconds INR (0.9-1.1) APTT (21.0-31.0) Seconds PTT Ratio D-Dimer 330 (0-500) ug/L FEU ABG pH (7.35-7.45) ABG pCO2 (35-46) mmHg ABG pO2 (80-95) mm/Hg ABG HCO3 (19-24) mmol/L ABG O2 Saturation (90-95) % ABG Base Excess (-9-1.8) mEq/L Ayaan Test (Pos) Barometric Pressure mm/Hg Oxygen Given Sodium (136-145) mmol/L Potassium (3.5-5.1) mmol/L Chloride (98-107) mmol/L Carbon Dioxide (21-32) mmol/L Anion Gap (3-11) BUN (7-18) mg/dl Creatinine (0.6-1.4) mg/dl Est Cr Clr Drug Dosing Est GFR ( Amer) Est GFR (Non-Af Amer) BUN/Creatinine Ratio (10-20) Glucose (70-99) mg/dl POC Glucose (70-99) Estimat Average Glucose mg/dl Hemoglobin A1c (4.5-5.6) % POC Lactic Acid Estrada (0.90-1.70) mmol/L Calcium (8.5-10.1) mg/dl Magnesium (1.8-2.4) mg/dl Total Bilirubin (0.2-1) mg/dl AST (15-37) U/L ALT (12-78) U/L Alkaline Phosphatase (45-117) U/L Troponin I (0-0.045) ng/ml NT-Pro-B Natriuret Pep (0-900) pg/ml Total Protein (6.4-8.2) gm/dl Albumin (3.4-5.0) gm/dl Globulin (2.5-4.0) gm/dl Albumin/Globulin Ratio (0.9-2) TSH (0.300-4.500) uIu/ml Ethyl Alcohol mg/dL (0-3) mg/dl Influenza Type A (PCR) Pos for Influ A A* (Neg) Influenza Type B (PCR) Neg for Influ B (Neg) 10/25/18 10/25/18 10/25/18 Range/Units 17:52 17:58 18:12 WBC (4.8-10.8) K/uL RBC (4.7-6.1) M/uL Hgb (14.0-18.0) g/dL Hct (42-52) % MCV (80-100) fL MCH (25-34) pg MCHC (32-36) g/dL RDW Std Deviation (36.4-46.3) fL RDW Coeff of Isaiah (11.5-14.5) % Plt Count (130-400) K/uL MPV (7.4-10.4) fL Immature Gran % (Auto) % Neut % (Auto) % Lymph % (Auto) % [place] % (Auto) % Eos % (Auto) % Baso % (Auto) % Immature Gran # (Auto) (0.00-0.02) K/uL Neut # (Auto) (1.4-6.5) K/uL Lymph # (Auto) (1.2-3.4) K/uL [place] # (Auto) (0.11-0.59) K/uL Eos # (Auto) (0-0.5) K/uL Baso # (Auto) (0-0.2) K/uL PT (9.0-12.0) Seconds INR (0.9-1.1) APTT (21.0-31.0) Seconds PTT Ratio D-Dimer (0-500) ug/L FEU ABG pH 7.38 (7.35-7.45) ABG pCO2 52 H (35-46) mmHg ABG pO2 84 (80-95) mm/Hg ABG HCO3 30 H (19-24) mmol/L ABG O2 Saturation 96.2 H (90-95) % ABG Base Excess 4.0 H (-9-1.8) mEq/L Ayaan Test Pos (Pos) Barometric Pressure 732.2 mm/Hg Oxygen Given 2 L Sodium 139 (136-145) mmol/L Potassium 3.8 (3.5-5.1) mmol/L Chloride 98 (98-107) mmol/L Carbon Dioxide 31 (21-32) mmol/L Anion Gap 10.0 (3-11) BUN 13 (7-18) mg/dl Creatinine 0.61 (0.6-1.4) mg/dl Est Cr Clr Drug Dosing Not Reportable Est GFR ( Amer) 118.9 Est GFR (Non-Af Amer) 102.6 BUN/Creatinine Ratio 21.4 H (10-20) Glucose 106 H (70-99) mg/dl POC Glucose (70-99) Estimat Average Glucose mg/dl Hemoglobin A1c (4.5-5.6) % POC Lactic Acid Estrada 1.31 (0.90-1.70) mmol/L Calcium 8.9 (8.5-10.1) mg/dl Magnesium 1.9 (1.8-2.4) mg/dl Total Bilirubin 0.6 (0.2-1) mg/dl AST 24 (15-37) U/L ALT 20 (12-78) U/L Alkaline Phosphatase 60 (45-117) U/L Troponin I 0.432 H* (0-0.045) ng/ml NT-Pro-B Natriuret Pep 1590 H (0-900) pg/ml Total Protein 8.0 (6.4-8.2) gm/dl Albumin 3.7 (3.4-5.0) gm/dl Globulin 4.3 H (2.5-4.0) gm/dl Albumin/Globulin Ratio 0.9 (0.9-2) TSH 0.728 (0.300-4.500) uIu/ml Ethyl Alcohol mg/dL (0-3) mg/dl Influenza Type A (PCR) (Neg) Influenza Type B (PCR) (Neg) 10/25/18 10/25/18 10/25/18 Range/Units 20:05 20:05 20:05 WBC (4.8-10.8) K/uL RBC (4.7-6.1) M/uL Hgb (14.0-18.0) g/dL Hct (42-52) % MCV (80-100) fL MCH (25-34) pg MCHC (32-36) g/dL RDW Std Deviation (36.4-46.3) fL RDW Coeff of Isaiah (11.5-14.5) % Plt Count (130-400) K/uL MPV (7.4-10.4) fL Immature Gran % (Auto) % Neut % (Auto) % Lymph % (Auto) % [place] % (Auto) % Eos % (Auto) % Baso % (Auto) % Immature Gran # (Auto) (0.00-0.02) K/uL Neut # (Auto) (1.4-6.5) K/uL Lymph # (Auto) (1.2-3.4) K/uL [place] # (Auto) (0.11-0.59) K/uL Eos # (Auto) (0-0.5) K/uL Baso # (Auto) (0-0.2) K/uL PT (9.0-12.0) Seconds INR (0.9-1.1) APTT 32.3 H (21.0-31.0) Seconds PTT Ratio 1.2 D-Dimer (0-500) ug/L FEU ABG pH (7.35-7.45) ABG pCO2 (35-46) mmHg ABG pO2 (80-95) mm/Hg ABG HCO3 (19-24) mmol/L ABG O2 Saturation (90-95) % ABG Base Excess (-9-1.8) mEq/L Ayaan Test (Pos) Barometric Pressure mm/Hg Oxygen Given Sodium (136-145) mmol/L Potassium (3.5-5.1) mmol/L Chloride (98-107) mmol/L Carbon Dioxide (21-32) mmol/L Anion Gap (3-11) BUN (7-18) mg/dl Creatinine (0.6-1.4) mg/dl Est Cr Clr Drug Dosing Est GFR ( Amer) Est GFR (Non-Af Amer) BUN/Creatinine Ratio (10-20) Glucose (70-99) mg/dl POC Glucose (70-99) Estimat Average Glucose mg/dl Hemoglobin A1c (4.5-5.6) % POC Lactic Acid Estrada (0.90-1.70) mmol/L Calcium (8.5-10.1) mg/dl Magnesium (1.8-2.4) mg/dl Total Bilirubin (0.2-1) mg/dl AST (15-37) U/L ALT (12-78) U/L Alkaline Phosphatase (45-117) U/L Troponin I 0.301 H* (0-0.045) ng/ml NT-Pro-B Natriuret Pep (0-900) pg/ml Total Protein (6.4-8.2) gm/dl Albumin (3.4-5.0) gm/dl Globulin (2.5-4.0) gm/dl Albumin/Globulin Ratio (0.9-2) TSH (0.300-4.500) uIu/ml Ethyl Alcohol mg/dL < 3.0 (0-3) mg/dl Influenza Type A (PCR) (Neg) Influenza Type B (PCR) (Neg) 10/25/18 10/26/18 10/26/18 Range/Units 22:38 01:46 02:17 WBC (4.8-10.8) K/uL RBC (4.7-6.1) M/uL Hgb (14.0-18.0) g/dL Hct (42-52) % MCV (80-100) fL MCH (25-34) pg MCHC (32-36) g/dL RDW Std Deviation (36.4-46.3) fL RDW Coeff of Isaiah (11.5-14.5) % Plt Count (130-400) K/uL MPV (7.4-10.4) fL Immature Gran % (Auto) % Neut % (Auto) % Lymph % (Auto) % [place] % (Auto) % Eos % (Auto) % Baso % (Auto) % Immature Gran # (Auto) (0.00-0.02) K/uL Neut # (Auto) (1.4-6.5) K/uL Lymph # (Auto) (1.2-3.4) K/uL [place] # (Auto) (0.11-0.59) K/uL Eos # (Auto) (0-0.5) K/uL Baso # (Auto) (0-0.2) K/uL PT (9.0-12.0) Seconds INR (0.9-1.1) APTT (21.0-31.0) Seconds PTT Ratio D-Dimer (0-500) ug/L FEU ABG pH (7.35-7.45) ABG pCO2 (35-46) mmHg ABG pO2 (80-95) mm/Hg ABG HCO3 (19-24) mmol/L ABG O2 Saturation (90-95) % ABG Base Excess (-9-1.8) mEq/L Ayaan Test (Pos) Barometric Pressure mm/Hg Oxygen Given Sodium (136-145) mmol/L Potassium (3.5-5.1) mmol/L Chloride (98-107) mmol/L Carbon Dioxide (21-32) mmol/L Anion Gap (3-11) BUN (7-18) mg/dl Creatinine (0.6-1.4) mg/dl Est Cr Clr Drug Dosing Est GFR ( Amer) Est GFR (Non-Af Amer) BUN/Creatinine Ratio (10-20) Glucose (70-99) mg/dl POC Glucose 235 H 213 H (70-99) Estimat Average Glucose 137 mg/dl Hemoglobin A1c 6.4 H (4.5-5.6) % POC Lactic Acid Estr[place] (0.90-1.70) mmol/L Calcium (8.5-10.1) mg/dl Magnesium (1.8-2.4) mg/dl Total Bilirubin (0.2-1) mg/dl AST (15-37) U/L ALT (12-78) U/L Alkaline Phosphatase (45-117) U/L Troponin I (0-0.045) ng/ml NT-Pro-B Natriuret Pep (0-900) pg/ml Total Protein (6.4-8.2) gm/dl Albumin (3.4-5.0) gm/dl Globulin (2.5-4.0) gm/dl Albumin/Globulin Ratio (0.9-2) TSH (0.300-4.500) uIu/ml Ethyl Alcohol mg/dL (0-3) mg/dl Influenza Type A (PCR) (Neg) Influenza Type B (PCR) (Neg) 10/26/18 10/26/18 10/26/18 Range/Units 02:17 02:17 02:17 WBC 3.34 L (4.8-10.8) K/uL RBC 4.52 L (4.7-6.1) M/uL Hgb 13.9 L (14.0-18.0) g/dL Hct 42.3 (42-52) % MCV 93.6 (80-100) fL MCH 30.8 (25-34) pg MCHC 32.9 (32-36) g/dL RDW Std Deviation 46.4 H (36.4-46.3) fL RDW Coeff of Isaiah 13.6 (11.5-14.5) % Plt Count 238 (130-400) K/uL MPV 10.0 (7.4-10.4) fL Immature Gran % (Auto) 0.3 % Neut % (Auto) 77.5 % Lymph % (Auto) 17.1 % [place] % (Auto) 4.5 % Eos % (Auto) 0.0 % Baso % (Auto) 0.6 % Immature Gran # (Auto) 0.01 (0.00-0.02) K/uL Neut # (Auto) 2.59 (1.4-6.5) K/uL Lymph # (Auto) 0.57 L (1.2-3.4) K/uL [place] # (Auto) 0.15 (0.11-0.59) K/uL Eos # (Auto) 0.00 (0-0.5) K/uL Baso # (Auto) 0.02 (0-0.2) K/uL PT 10.7 (9.0-12.0) Seconds INR 1.1 (0.9-1.1) APTT 32.9 H (21.0-31.0) Seconds PTT Ratio 1.3 D-Dimer (0-500) ug/L FEU ABG pH (7.35-7.45) ABG pCO2 (35-46) mmHg ABG pO2 (80-95) mm/Hg ABG HCO3 (19-24) mmol/L ABG O2 Saturation (90-95) % ABG Base Excess (-9-1.8) mEq/L Ayaan Test (Pos) Barometric Pressure mm/Hg Oxygen Given Sodium 138 (136-145) mmol/L Potassium 3.5 (3.5-5.1) mmol/L Chloride 102 (98-107) mmol/L Carbon Dioxide 28 (21-32) mmol/L Anion Gap 8.0 (3-11) BUN 16 (7-18) mg/dl Creatinine 0.71 (0.6-1.4) mg/dl Est Cr Clr Drug Dosing 102.8 Est GFR ( Amer) 111.7 Est GFR (Non-Af Amer) 96.4 BUN/Creatinine Ratio 21.9 H (10-20) Glucose 193 H (70-99) mg/dl POC Glucose (70-99) Estimat Average Glucose mg/dl Hemoglobin A1c (4.5-5.6) % POC Lactic Acid [place]strada (0.90-1.70) mmol/L Calcium 8.6 (8.5-10.1) mg/dl Magnesium 1.8 (1.8-2.4) mg/dl Total Bilirubin (0.2-1) mg/dl AST (15-37) U/L ALT (12-78) U/L Alkaline Phosphatase (45-117) U/L Troponin I (0-0.045) ng/ml NT-Pro-B Natriuret Pep (0-900) pg/ml Total Protein (6.4-8.2) gm/dl Albumin (3.4-5.0) gm/dl Globulin (2.5-4.0) gm/dl Albumin/Globulin Ratio (0.9-2) TSH (0.300-4.500) uIu/ml Ethyl Alcohol mg/dL (0-3) mg/dl Influenza Type A (PCR) (Neg) Influenza Type B (PCR) (Neg) 10/26/18 10/26/18 10/26/18 Range/Units 07:47 11:52 16:39 WBC (4.8-10.8) K/uL RBC (4.7-6.1) M/uL Hgb (14.0-18.0) g/dL Hct (42-52) % MCV (80-100) fL MCH (25-34) pg MCHC (32-36) g/dL RDW Std Deviation (36.4-46.3) fL RDW Coeff of Isaiah (11.5-14.5) % Plt Count (130-400) K/uL MPV (7.4-10.4) fL Immature Gran % (Auto) % Neut % (Auto) % Lymph % (Auto) % [place] % (Auto) % Eos % (Auto) % Baso % (Auto) % Immature Gran # (Auto) (0.00-0.02) K/uL Neut # (Auto) (1.4-6.5) K/uL Lymph # (Auto) (1.2-3.4) K/uL [place] # (Auto) (0.11-0.59) K/uL Eos # (Auto) (0-0.5) K/uL Baso # (Auto) (0-0.2) K/uL PT (9.0-12.0) Seconds INR (0.9-1.1) APTT (21.0-31.0) Seconds PTT Ratio D-Dimer (0-500) ug/L FEU ABG pH (7.35-7.45) ABG pCO2 (35-46) mmHg ABG pO2 (80-95) mm/Hg ABG HCO3 (19-24) mmol/L ABG O2 Saturation (90-95) % ABG Base Excess (-9-1.8) mEq/L Ayaan Test (Pos) Barometric Pressure mm/Hg Oxygen Given Sodium (136-145) mmol/L Potassium (3.5-5.1) mmol/L Chloride (98-107) mmol/L Carbon Dioxide (21-32) mmol/L Anion Gap (3-11) BUN (7-18) mg/dl Creatinine (0.6-1.4) mg/dl Est Cr Clr Drug Dosing Est GFR ( Amer) Est GFR (Non-Af Amer) BUN/Creatinine Ratio (10-20) Glucose (70-99) mg/dl POC Glucose 171 H 192 H 197 H (70-99) Estimat Average Glucose mg/dl Hemoglobin A1c (4.5-5.6) % POC Lactic Acid Estrada (0.90-1.70) mmol/L Calcium (8.5-10.1) mg/dl Magnesium (1.8-2.4) mg/dl Total Bilirubin (0.2-1) mg/dl AST (15-37) U/L ALT (12-78) U/L Alkaline Phosphatase (45-117) U/L Troponin I (0-0.045) ng/ml NT-Pro-B Natriuret Pep (0-900) pg/ml Total Protein (6.4-8.2) gm/dl Albumin (3.4-5.0) gm/dl Globulin (2.5-4.0) gm/dl Albumin/Globulin Ratio (0.9-2) TSH (0.300-4.500) uIu/ml Ethyl Alcohol mg/dL (0-3) mg/dl Influenza Type A (PCR) (Neg) Influenza Type B (PCR) (Neg) 10/26/18 10/27/18 10/27/18 Range/Units 21:34 07:30 07:30 WBC 15.95 H (4.8-10.8) K/uL RBC 4.53 L (4.7-6.1) M/uL Hgb 13.7 L (14.0-18.0) g/dL Hct 42.6 (42-52) % MCV 94.0 (80-100) fL MCH 30.2 (25-34) pg MCHC 32.2 (32-36) g/dL RDW Std Deviation 46.9 H (36.4-46.3) fL RDW Coeff of Isaiah 13.8 (11.5-14.5) % Plt Count 229 (130-400) K/uL MPV 9.9 (7.4-10.4) fL Immature Gran % (Auto) % Neut % (Auto) % Lymph % (Auto) % [place] % (Auto) % Eos % (Auto) % Baso % (Auto) % Immature Gran # (Auto) (0.00-0.02) K/uL Neut # (Auto) (1.4-6.5) K/uL Lymph # (Auto) (1.2-3.4) K/uL [place] # (Auto) (0.11-0.59) K/uL Eos # (Auto) (0-0.5) K/uL Baso # (Auto) (0-0.2) K/uL PT (9.0-12.0) Seconds INR (0.9-1.1) APTT (21.0-31.0) Seconds PTT Ratio D-Dimer (0-500) ug/L FEU ABG pH (7.35-7.45) ABG pCO2 (35-46) mmHg ABG pO2 (80-95) mm/Hg ABG HCO3 (19-24) mmol/L ABG O2 Saturation (90-95) % ABG Base Excess (-9-1.8) mEq/L Ayaan Test (Pos) Barometric Pressure mm/Hg Oxygen Given Sodium 142 (136-145) mmol/L Potassium 4.1 D (3.5-5.1) mmol/L Chloride 107 (98-107) mmol/L Carbon Dioxide 31 (21-32) mmol/L Anion Gap 4.0 (3-11) BUN 23 H (7-18) mg/dl Creatinine 0.66 (0.6-1.4) mg/dl Est Cr Clr Drug Dosing 110.6 Est GFR ( Amer) 115.1 Est GFR (Non-Af Amer) 99.3 BUN/Creatinine Ratio 34.9 H (10-20) Glucose 118 H (70-99) mg/dl POC Glucose 140 H (70-99) Estimat Average Glucose mg/dl Hemoglobin A1c (4.5-5.6) % POC Lactic Acid Estrada (0.90-1.70) mmol/L Calcium 8.4 L (8.5-10.1) mg/dl Magnesium 2.2 (1.8-2.4) mg/dl Total Bilirubin (0.2-1) mg/dl AST (15-37) U/L ALT (12-78) U/L Alkaline Phosphatase (45-117) U/L Troponin I (0-0.045) ng/ml NT-Pro-B Natriuret Pep (0-900) pg/ml Total Protein (6.4-8.2) gm/dl Albumin (3.4-5.0) gm/dl Globulin (2.5-4.0) gm/dl Albumin/Globulin Ratio (0.9-2) TSH (0.300-4.500) uIu/ml Ethyl Alcohol mg/dL (0-3) mg/dl Influenza Type A (PCR) (Neg) Influenza Type B (PCR) (Neg) 10/27/18 10/27/18 Range/Units 12:53 16:34 WBC (4.8-10.8) K/uL RBC (4.7-6.1) M/uL Hgb (14.0-18.0) g/dL Hct (42-52) % MCV (80-100) fL MCH (25-34) pg MCHC (32-36) g/dL RDW Std Deviation (36.4-46.3) fL RDW Coeff of Isaiah (11.5-14.5) % Plt Count (130-400) K/uL MPV (7.4-10.4) fL Immature Gran % (Auto) % Neut % (Auto) % Lymph % (Auto) % [place] % (Auto) % Eos % (Auto) % Baso % (Auto) % Immature Gran # (Auto) (0.00-0.02) K/uL Neut # (Auto) (1.4-6.5) K/uL Lymph # (Auto) (1.2-3.4) K/uL [place] # (Auto) (0.11-0.59) K/uL Eos # (Auto) (0-0.5) K/uL Baso # (Auto) (0-0.2) K/uL PT (9.0-12.0) Seconds INR (0.9-1.1) APTT (21.0-31.0) Seconds PTT Ratio D-Dimer (0-500) ug/L FEU ABG pH (7.35-7.45) ABG pCO2 (35-46) mmHg ABG pO2 (80-95) mm/Hg ABG HCO3 (19-24) mmol/L ABG O2 Saturation (90-95) % ABG Base Excess (-9-1.8) mEq/L Ayaan Test (Pos) Barometric Pressure mm/Hg Oxygen Given Sodium (136-145) mmol/L Potassium (3.5-5.1) mmol/L Chloride (98-107) mmol/L Carbon Dioxide (21-32) mmol/L Anion Gap (3-11) BUN (7-18) mg/dl Creatinine (0.6-1.4) mg/dl Est Cr Clr Drug Dosing Est GFR ( Amer) Est GFR (Non-Af Amer) BUN/Creatinine Ratio (10-20) Glucose (70-99) mg/dl POC Glucose 175 H 143 H (70-99) Estimat Average Glucose mg/dl Hemoglobin A1c (4.5-5.6) % POC Lactic Acid Estrada (0.90-1.70) mmol/L Calcium (8.5-10.1) mg/dl Magnesium (1.8-2.4) mg/dl Total Bilirubin (0.2-1) mg/dl AST (15-37) U/L ALT (12-78) U/L Alkaline Phosphatase (45-117) U/L Troponin I (0-0.045) ng/ml NT-Pro-B Natriuret Pep (0-900) pg/ml Total Protein (6.4-8.2) gm/dl Albumin (3.4-5.0) gm/dl Globulin (2.5-4.0) gm/dl Albumin/Globulin Ratio (0.9-2) TSH (0.300-4.500) uIu/ml Ethyl Alcohol mg/dL (0-3) mg/dl Influenza Type A (PCR) (Neg) Influenza Type B (PCR) (Neg) Imaging Data Radiologist's Impression: Radiology results as stated below per my review and the radiologist's interpretation: XR chest 1V portable CLINICAL HISTORY: sob, cough COMPARISON STUDY: 10/08/2017 FINDINGS: Mild emphysematous change. Chronic prominence of the central pulmonary vasculature. Diaphragms are smooth. No acute infiltrate. IMPRESSION: Mild emphysematous change. No acute process. The above report was generated using voice recognition software. It may contain grammatical, syntax or spelling errors. Electronically signed by: Chicho Pettit M.D. 10/25/2018 6:12 PM ECG Data Attestation: I personally reviewed and interpreted this ECG as follows: Indication: SOB/dyspnea Rate (beats per minute): 84 Rhythm: sinus rhythm Findings: + other (normal axis, normal intervals, baseline artifact) and + Q waves (in V2, V3); no ST depression, no ST elevation and no acute ischemic change Blood Pressure Blood Pressure Findings: Elevated blood pressure Blood Pressure Disposition: Referred to patients primary care provider MDM Narrative Pt initially ill appearing with increased WOB and hypoxia. Pt placed on NC and oxygen sats improved, however pt still with increased WOB. Neb started immediately and pt began moving more air, however still markedly diminished and wheezing b/l. Pt given continuous neb, IV mag, solumedrol in the ER. CR didn' t reveal any infiltrate, chf, or effusion. Given presentation and evolution over a week with sick contact, I am less suspicious of PE despite hx. Labs reassuring given condition and influenza positive. Pt and family made aware of all results and like pt contracted influenza from sick family contact this week which led to worsening COPD exacerbation and eventual hypoxia. Given flu+ and no other lobar consolidation noted, antibiotics not started empirically. EKG not suggestive of ACS. Pt with risk factors for ACS. I feel the elevated troponin more likely secondary to respiratory distress and hypoxia. Pt reported feeling improved despite increased WOB. Discussed BiPAP and pt refused citing he felt he was slowly improving. Pt and family made aware of tenuous respiratory condition. Pt has never been intubated previously for copd exacerbation. Case discussed with hospitalist for additional evaluation/mgmt. Impression & Plan COPD exacerbation, Influenza, Elevated troponin, Hypoxia Critical Care Time I have personally spent 40 minutes of critical care time in the direct management of this patient. This includes bedside care, interpretation of diagnostic studies, and testing, discussion with consultants, patient, and family members, and other required patient management activities. This 40 minutes is in excess of all separately billable procedures. Critical Care Time: Yes Total Critical Care Time: 40 Discharge Plan Visit Data *Final* Discharge Date/Time: 10/25/18 20:20 Chief Complaint: Shortness of Breath/Dyspnea Stated Complaint: COUGH,SOB,FEVER ED Provider: Meghna Laboy Discharge Problem: COPD exacerbation, Influenza, Elevated troponin, Hypoxia Patient Disposition: Admitted As Inpatient Discharge Instructions Interventions: ED Discharge Assessment Last Done: 10/25/18 20:20 The scribe's documentation has been prepared under my direction and personally reviewed by me in its entirety. I confirm that the note above accurately reflects all work, treatment, procedures, and medical decision making performed by me.
[2018-10-25 20:45] LABS: Partial Thromboplastin Ratio 1.2; Partial Thromboplastin Time 32.3 Seconds (21.0-31.0)
[2018-10-25] MEDS ORDERED: LORazepam 0.25 MG/0.5 ML VIAL IV PRN (21:43)
[2018-10-25] MEDS ORDERED: PROCHLORPERAZINE 5 MG in SYRINGE 4 ML IV PRN (21:43)
[2018-10-25] MEDS ORDERED: NITROGLYCERIN SL 0.4 MG/TAB TAB SL PRN (21:43)
[2018-10-25] MEDS ORDERED: ALBUMIN 25% 50 ML IV ONE (21:43)
[2018-10-25] MEDS: guaiFENesin 600 MG TABCR PO SCH (22:56)
[2018-10-25] MEDS: IPRATROPIUM BROMIDE NEB SOLN 0.02% 2.5 ML VIAL INH SCH (23:14)
[2018-10-25] MEDS: LEVALBUTEROL 1.25MG/0.5ML NEB INH SCH (23:14)
[2018-10-26] MEDS ORDERED: XOPENEX/ATROVENT 1.25mg/0.5MG NEB COMBO NEB SCH
[2018-10-26] MEDS: NICOTINE 14 MG/24 HR PATCH TD SCH ×2 (00:51→10:21)
[2018-10-26] MEDS: OSELTAMIVIR PHOSPHATE 75 MG CAP PO SCH ×3 (00:54→21:37)
[2018-10-26] MEDS ORDERED: POTASSIUM CHLORIDE 20 MEQ TABCR PO STA ×2 (01:20→03:24)
[2018-10-26] MEDS ORDERED: CARBOHYDRATES FOR HYPOGLYCEMIA PO PRN (01:21)
[2018-10-26] MEDS ORDERED: GLUCAGON FOR INJ 1 MG VIAL SQ PRN (01:21)
[2018-10-26] MEDS ORDERED: GLUCOSE 40% GEL 15 GM TUBE PO PRN (01:21)
[2018-10-26] MEDS ORDERED: DEXTROSE 50% 50 ML SYRINGE IV PRN (01:21)
[2018-10-26] MEDS ORDERED: GLUCOSE 10 TABS/TUBE PO PRN (01:21)
[2018-10-26] MEDS ORDERED: ALBUMIN 25% 50 ML IV ONE ×2 (01:22→03:29)
[2018-10-26] MEDS ORDERED: DIGOXIN 250 MCG in SYRINGE 9 ML IV STA ×3 (01:24→03:34)
[2018-10-26] MEDS ORDERED: INSULIN GLARGINE 100 UNIT/ML VIAL SC SCH (01:25)
[2018-10-26] MEDS: INSULIN GLARGINE SOLOSTAR 100 UNITS/ML 3 ML PEN SC SCH ×2 (01:52→21:35)
[2018-10-26] MEDS: INSULIN ASPART 100 UNITS/ML 3 ML PEN SC SCH ×5 (01:54→21:37)
[2018-10-26] MEDS ORDERED: METOPROLOL SUCC 25MG EXT REL TAB PO SCH ×3 (02:15→09:00)
[2018-10-26] MEDS ORDERED: METOPROLOL TARTRATE 1 MG/ML VIAL IV STA (02:15)
[2018-10-26 02:34] LABS: Basophils # (auto) 0.02 K/uL (0-0.2); Basophils % (auto) 0.6 %; Hematocrit (blood only) 42.3 % (42-52); Hemoglobin 13.9 g/dL (14.0-18.0); Immature Granulocytes # (auto) 0.01 K/uL (0.00-0.02); Immature Granulocytes % (auto) 0.3 %; Lymphocytes # (auto) 0.57 K/uL (1.2-3.4); Lymphocytes % (auto) 17.1 %; Mean Corpuscular Hgb Conc 32.9 g/dL (32-36); Mean Corpuscular Volume 93.6 fL (80-100); Monocytes # (auto) 0.15 K/uL (0.11-0.59); Monocytes % (auto) 4.5 %; Neutrophils # (auto) 2.59 K/uL (1.4-6.5); Neutrophils % (auto) 77.5 %; Platelet Count 238 K/uL (130-400); RDW Coefficient of Variation 13.6 % (11.5-14.5); RDW Standard Deviation 46.4 fL (36.4-46.3); Red Blood Count 4.52 M/uL (4.7-6.1); White Blood Count 3.34 K/uL (4.8-10.8)
[2018-10-26 02:52] LABS: BUN Creatinine Ratio 21.9 (10-20); Calcium 8.6 mg/dl (8.5-10.1); Creatinine Clr Calc Pharmacy 102.8 ml/min; Est GFR (African American) 111.7; Est GFR (Non-African American) 96.4; Magnesium 1.8 mg/dl (1.8-2.4); Potassium 3.5 mmol/L (3.5-5.1)
[2018-10-26] MEDS: LEVALBUTEROL 1.25MG/0.5ML NEB INH SCH ×6 (03:01→23:08)
[2018-10-26] MEDS: IPRATROPIUM BROMIDE NEB SOLN 0.02% 2.5 ML VIAL INH SCH ×6 (03:01→23:10)
[2018-10-26 03:02] LABS: INR 1.1 (0.9-1.1); Partial Thromboplastin Ratio 1.3; Partial Thromboplastin Time 32.9 Seconds (21.0-31.0); Prothrombin Time 10.7 Seconds (9.0-12.0)
[2018-10-26] MEDS ORDERED: MAGNESIUM SULFATE / D5W 1 GM/100 ML BAG IV ONE (03:22)
[2018-10-26] MEDS ORDERED: DIGOXIN 125 MCG in SYRINGE 9.5 ML IV STA (03:32)
[2018-10-26] MEDS: METOPROLOL SUCC 25MG EXT REL TAB PO SCH ×2 (04:56→08:27)
[2018-10-26 06:52] LABS: Estimated Average Glucose 137 mg/dl
[2018-10-26] MEDS: guaiFENesin 600 MG TABCR PO SCH ×2 (08:26→21:36)
[2018-10-26] MEDS: predniSONE 20 MG TAB PO SCH (08:26)
[2018-10-26] MEDS: ASPIRIN 81 MG ECTAB PO SCH (08:26)
[2018-10-26] MEDS: ATORVASTATIN 40 MG TAB PO SCH (08:26)
[2018-10-26] MEDS: ENOXAPARIN INJ 30 MG/0.3 ML SYR SQ SCH (08:27)
--- NOTE | 2018-10-26 13:59 | Hospitalist Progress Note ---
Date of Service October 26, 2018 Assessment & Plan (1) Acute hypoxemic respiratory failure: Secondary to COPD exacerbation secondary to influenza pneumonia Pulmonary congestion contributory Some improvement after initial intervention at the ER hypertension, slight elevated Elevated troponin secondary respiratory illness hx PE status post Coumadin White's palsy status post steroid Rx Ongoing tobacco abuse Past alcohol abuse Medical telemetry Supplemental O2 Nebs, prednisone course Tamiflu course Pulmonary consult in a.m. if without improvement RE COPD exacerbation Lasix 1 dose Follow troponin, TTE RE elevated troponin Nicotine patch DVT prophylaxis. Lovenox subcu Full code Physical Exam 2 Vital Signs (Past 24 Hours): Last Vital Signs Temp 36.8 C 10/26/18 11:44 Pulse 73 10/26/18 11:44 Resp 18 10/26/18 11:44 BP 125/73 10/26/18 11:44 Pulse Ox 90 10/26/18 11:44
--- NOTE | 2018-10-26 14:22 | Hospitalist Progress Note ---
Date of Service October 26, 2018 Assessment & Plan (1) Acute hypoxemic respiratory failure: Acute COPD exacerbation Influenza A Ongoing Tobacco use disorder CXR:Mild emphysematous change. No acute process. Not on any home inhalers Continue Bronchodilators, Prednisone, Oseltamivir Isolation precautions Supplemental Oxygen as needed Needs PFTs as outpatient Counseled to quit smoking Nicotine patch Prediabetes: Hb A1C:6.4 No know H/O diabetes BGs elevated likely secondary to steroids Continue ISS, Lantus for now Category Consultant on diet, exercise Atrial Fibrillation: Newly diagnosed Spontaneously converted to sinus Type II AR due to demand ischemia Denies chest pain, palpitations Continue Metoprolol Also on aspirin Cardiology consulted HTN: Elevated on presentation BP stable now Continue Metoprolol Dyslipidemia: Continue Statins H/O PE Previously on coumadin Currently not on anticoagulation H/O White's palsy Stable DVT Px: Lovenox SQ Code Status Full code Subjective Patient is seen and examined at bedside Feels better since the time of admission Less cough and dyspnea Denies chest pain, palpitations, dizziness Family at bedside Currently in sinus No other complaints Physical Exam 2 Vital Signs (Past 24 Hours): Last Vital Signs Temp 36.8 C 10/26/18 11:44 Pulse 73 10/26/18 11:44 Resp 18 10/26/18 11:44 BP 125/73 10/26/18 11:44 Pulse Ox 90 10/26/18 11:44 Physical Exam: Physical Exam: Vitals signs as noted above General Appearance:Moderately built, no apparent distress Head: normocephalic, Atraumatic Eyes: normal inspection, EOMI Neck: supple, Trachea midline Respiratory/Chest: Decreased breath sounds, B/L wheezes Cardiovascular: S1, S2, No murmur Abdomen/GI:Soft, Non tender, Bowel sounds present Extremities/Musculoskelatal:normal inspection, no edema Neurologic/Psych:AAOX3, grossly no focal neurological deficits Skin: normal color, warm Results & Data Laboratory Results Short CBC 10/25/18 10/26/18 Range/Units 17:52 02:17 WBC 6.89 3.34 L (4.8-10.8) K/uL Hgb 15.3 13.9 L (14.0-18.0) g/dL Hct 46.8 42.3 (42-52) % Plt Count 258 238 (130-400) K/uL BMP 10/25/18 10/26/18 17:52 02:17 Sodium 139 138 Potassium 3.8 3.5 Chloride 98 102 Carbon Dioxide 31 28 BUN 13 16 Creatinine 0.61 0.71 Glucose 106 H 193 H Calcium 8.9 8.6 Cardiac Enzymes 10/25/18 10/25/18 Range/Units 17:52 20:05 Troponin I 0.432 H* 0.301 H* (0-0.045) ng/ml Liver Function 10/25/18 Range/Units 17:52 Total Bilirubin 0.6 (0.2-1) mg/dl AST 24 (15-37) U/L ALT 20 (12-78) U/L Alkaline Phosphatase 60 (45-117) U/L Albumin 3.7 (3.4-5.0) gm/dl
--- NOTE | 2018-10-26 16:47 | Cardiology Consultation ---
Date of Consultation October 26, 2018 Assessment & Plan (1) Elevated troponin: 2. Acute hypoxic respiratory failure/acute COPD exacerbation 3. Influenza A 4. Newly diagnosed atrial fibrillation with RVR 5. Dilated RV 6. Hypertension 7. Dyslipidemia 8. Ongoing tobacco abuse Patient has remained chest pain-free throughout recent episode and chest pain free at home prior to recent illness. No dynamic EKG changes. Troponin trending down. Echocardiogram shows no new LV dysfunction/regional wall motion abnormality's. Overall suspicion that troponin represents acute coronary syndrome is low. In the setting of cardiac risk factors further CAD risk stratification reasonable but can be deferred until acute illness resolved. In regards to new onset atrial fibrillation suspect triggered by acute illness, steroid therapy. Converted back to sinus rhythm and recommend up titration of AV carlito agents. No indication for anticoagulation at this time. Going forward: Continue to monitor on telemetry while admitted. Recommend outpatient stress test for additional risk stratification Increase Toprol XL to 50 mg daily. Continue aspirin, high intensity statin No additional cardiac testing necessary at this time. We will continue to follow. Thank you for allowing us to participate in the care of this patient. Please contact with any questions. History of Present Illness Attending Physician: Juan Carrasquillo MD History of Present Illness Mr. Sanchez is a very pleasant 68-year-old man with a history of hypertension, dyslipidemia, COPD, history of prior PE, prior alcohol abuse, ongoing tobacco use who was admitted with acute COPD exacerbation in the setting of active influenza A. Cardiology consult in the setting of mildly elevated troponin and newly diagnosed atrial fibrillation. Patient reports worsening shortness of breath with exertion over weeks. This is been associated with primarily a nonproductive cough. Symptoms progressed to the point where he was short of breath walking across his room at home and presented to the ED yesterday evening. On arrival was tachypneic, hypoxic to mid 80s on room air. Chest x-ray negative for acute cardiopulmonary process. Initial EKG without acute changes. Presenting troponin elevated at 0.432 subsequently trended down to 0.3. Started on Solu-Medrol, bronchodilators, Oseltamivir. Overnight patient went into atrial fibrillation with RVR. Was asymptomatic. Heart rate to the 150s. Received IV digoxin and extra dose of p.o. home metoprolol with conversion to sinus rhythm overnight. On telemetry as remained in sinus rhythm during the day. At baseline patient not terribly active. Denies any limiting chest pain prior to or during recent symptomatic events. Was previously seen 1 year ago when was admitted with fall, hematuria, failure to thrive in the setting of alcohol abuse. Troponin mildly elevated to 0.23 at that time. Echocardiogram in 2018 showed no LV dysfunction or regional wall motion abnormalities. No additional cardiac workup undertaken. Social history: Now lives with daughter. Has quit alcohol for almost a year. Still smoking half pack per day down from previous. Allergies Allergy/AdvReac Type Severity Reaction Status Date / Time No Known Allergies Allergy Unverified 10/25/18 17:52 Home Medications Home Medications Medication Instructions Recorded Confirmed Type aspirin 81 mg PO QAM 10/25/18 10/25/18 History atorvastatin 40 mg PO QAM 10/25/18 10/25/18 History metoprolol succinate 25 mg PO QAM 10/25/18 10/25/18 History lxswqvmax-NB-laawublt-guaifen 20 ml PO Q4H 10/25/18 10/25/18 History [Mucinex Cold,Flu,Sore Throat] Patient History Medical History White's palsy (Acute) Emphysema of lung (Chronic) Pulmonary embolism (Resolved) Social History Current Living Situation: Alone Feels Safe at Home: Yes Safety Concerns: Feels Safe At This Time Smoking Status: Current every day smoker Tobacco Type: cigarettes Cigarettes per Day: 20 Hx Alcohol Use: No Hx Substance Use: No Beliefs That Will Affect Care: None Preferred Language: Japanese Communication Ability: Effective Capacity Planner Required: No Review of Systems 10 point review of systems was completed and was otherwise negative unless stated in HPI Physical Exam 2 Vital Signs (Past 24 Hours): Last Vital Signs Temp 37.2 C 10/26/18 15:55 Pulse 76 10/26/18 15:55 Resp 18 10/26/18 15:55 BP 126/79 10/26/18 15:55 Pulse Ox 90 10/26/18 15:55 Physical Exam: General: Comfortable, no acute distress Eyes: Sclerae anicteric, extraocular movements intact HENT: Oropharynx clear mucous membranes moist Neck: Normal carotid upstrokes, no bruits. No JVD. Lungs: Coarse breath sounds with rhonchi, scattered wheezes, no significant rales. Cardiac: Regular rate and rhythm, no murmurs, rubs or gallops. Vascular: 2+ radial, 2+ PT pulses bilaterally Abdomen: Soft, nontender, nondistended, positive bowel sounds. Extremities: Well perfused, distal extremities cool, 2+ capillary refill Skin: No rashes or lesions. Neuro: Nonfocal Psych: Alert orient x3, normal affect and mood Results & Data Diagnostic Findings Echo (today)normal LV size and function, no regional wall motion normalities. Dilated RV with normal function. No significant valvular pathology
[2018-10-27] MEDS: IPRATROPIUM BROMIDE NEB SOLN 0.02% 2.5 ML VIAL INH SCH ×6 (03:11→23:06)
[2018-10-27] MEDS: LEVALBUTEROL 1.25MG/0.5ML NEB INH SCH ×6 (03:11→23:05)
[2018-10-27 08:06] LABS: Hematocrit (blood only) 42.6 % (42-52); Hemoglobin 13.7 g/dL (14.0-18.0); Mean Corpuscular Hgb Conc 32.2 g/dL (32-36); Mean Platelet Volume 9.9 fL (7.4-10.4); Platelet Count 229 K/uL (130-400); RDW Coefficient of Variation 13.8 % (11.5-14.5); RDW Standard Deviation 46.9 fL (36.4-46.3); Red Blood Count 4.53 M/uL (4.7-6.1); White Blood Count 15.95 K/uL (4.8-10.8)
[2018-10-27 08:25] LABS: BUN Creatinine Ratio 34.9 (10-20); Calcium 8.4 mg/dl (8.5-10.1); Creatinine Clr Calc Pharmacy 110.6 ml/min; Est GFR (African American) 115.1; Est GFR (Non-African American) 99.3; Magnesium 2.2 mg/dl (1.8-2.4); Potassium 4.1 mmol/L (3.5-5.1)
[2018-10-27] MEDS: METOPROLOL SUCC 50MG EXT REL TAB PO SCH (09:17)
[2018-10-27] MEDS: guaiFENesin 600 MG TABCR PO SCH ×2 (09:18→21:32)
[2018-10-27] MEDS: predniSONE 20 MG TAB PO SCH (09:18)
[2018-10-27] MEDS: OSELTAMIVIR PHOSPHATE 75 MG CAP PO SCH ×2 (09:18→21:32)
[2018-10-27] MEDS: NICOTINE 14 MG/24 HR PATCH TD SCH (09:19)
[2018-10-27] MEDS: ASPIRIN 81 MG ECTAB PO SCH (09:19)
[2018-10-27] MEDS: ATORVASTATIN 40 MG TAB PO SCH (09:19)
[2018-10-27] MEDS: ENOXAPARIN INJ 30 MG/0.3 ML SYR SQ SCH (09:20)
[2018-10-27] MEDS: INSULIN ASPART 100 UNITS/ML 3 ML PEN SC SCH ×4 (09:22→21:33)
--- NOTE | 2018-10-27 14:45 | Hospitalist Progress Note ---
Date of Service October 27, 2018 Assessment & Plan (1) Acute hypoxemic respiratory failure: Acute COPD exacerbation Influenza A Ongoing Tobacco use disorder CXR:Mild emphysematous change. No acute process. Not on any home inhalers Continue Bronchodilators, Prednisone, Oseltamivir Isolation precautions Supplemental Oxygen as needed Needs PFTs as outpatient Counseled to quit smoking Nicotine patch Lasix x 1 dose Prediabetes: Hb A1C:6.4 No know H/O diabetes BGs elevated likely secondary to steroids Continue ISS, Lantus for now Program Control Analyst on diet, exercise Atrial Fibrillation: Newly diagnosed Spontaneously converted to sinus Type II MS due to demand ischemia Denies chest pain, palpitations Continue Metoprolol Also on aspirin Cardiology consulted HTN: Elevated on presentation BP stable now Continue Metoprolol Dyslipidemia: Continue Statins H/O PE Previously on coumadin Currently not on anticoagulation H/O White's palsy Stable DVT PFX Lovenox SQ Code Status Full code DC tomorrow, still hypoxic, One dose Lasix Subjective 68 yo male PMH of hypertension, hyperlipidemia, COPD as per records, ongoing tobacco abuse, past alcohol abuse, hx White's palsy status post steroid Rx. Recent confinement September 2017 for pneumonia, subsegmental PE, multiple rib fractures. Patient subsequently completed 3-month Coumadin course outpatient. Few days history of cough symptoms , unable to expectorate, sick contacts, malaise, worsening shortness of breath. No chest pain. At the ER, patient received Solu-Medrol and neb treatment for possible COPD exacerbation. Aspirin and nitro patch administered for elevated troponin. He was found to have hypoxemia and a COPD exac 2/2 Influenza A. Patient is seen and examined at bedside Feels better since the time of admission Less cough and dyspnea Denies chest pain, palpitations, dizziness Family at bedside Currently in sinus No other complaints Flu A Positive ROS-No Headache, No Visual Changes, No Fever, No Chills, No Neck Pain or Stiffness, No Chest Pain, No Palpitations, No SOB, + RIVAS, + Cough, No Sputum, + Wheezing, No Abdominal Pain, No Diarrhea, No Hematemesis, No Hemoptysis, No Unexpected Weight Loss, No Flank pain, No Melena, No Hematochezia, No Frequency , No Urgency, No Burning, No Hematuria, No Rashes, No Diaphoresis. Appetite is Normal Physical Exam Gen-AAO x 3, NAD, Afebrile Head-NCAT, EOMI, PERRLA, Anicteric Sclera, No Posterior Pharyngeal Erythema Neck-Supple, No JVD, No Thyromegaly, No Masses, No LAD, No Bruits Lungs-B/L Wheezing Improved per patient Chest-No S4, +S1, +S2, No S3, No Murmurs, No Rubs, No Gallops, No Ectopy Abdomen-Soft, Bowel Sounds Present, Non Tender, Non Distended, No Hepatomegaly, No Splenomegaly, No Palpable Masses, No Rebound, No Rigidity, No Guarding Musculoskeletal-Full Range of Motion Bilaterally, No CVAT Extremities-No Cyanosis, No Clubbing, No Edema Nuero-+Facial Droop, Motor WNL, DTRs WNL, Strength WNL Psych-Normal Mood Physical Exam 2 Vital Signs (Past 24 Hours): Last Vital Signs Temp 36.3 C L 10/27/18 11:51 Pulse 62 10/27/18 11:51 Resp 18 10/27/18 11:51 BP 125/75 10/27/18 11:51 Pulse Ox 96 10/27/18 11:51 Results & Data Laboratory Results Current Diagnoses Acute respiratory failure with hypoxia (10/25/18) Allergies No Known Allergies Allergy (Unverified 10/25/18 17:52) Height/Weight/Isolation Height 5 ft 10 in Weight 75 kg Isolation Type Droplet Precautions Chemistry 10/25/18 10/26/18 10/27/18 17:52 02:17 07:30 Sodium 139 138 142 Potassium 3.8 3.5 4.1 D Chloride 98 102 107 Carbon Dioxide 31 28 31 Anion Gap 10.0 8.0 4.0 BUN 13 16 23 H Creatinine 0.61 0.71 0.66 Glucose 106 H 193 H 118 H
[2018-10-27] MEDS ORDERED: FUROSEMIDE 40 MG in SYRINGE 0 ML IV ONE (15:30)
[2018-10-27] MEDS ORDERED: ALBUT/IPRATROP 3MG/0.5MG NEB 3 ML VIAL NEB SCH (16:00)
[2018-10-27] MEDS: ACETAMINOPHEN 325 MG TAB PO PRN (16:43)
[2018-10-27] MEDS: INSULIN GLARGINE SOLOSTAR 100 UNITS/ML 3 ML PEN SC SCH (21:34)
[2018-10-28] MEDS: LEVALBUTEROL 1.25MG/0.5ML NEB INH SCH ×3 (03:11→11:09)
[2018-10-28] MEDS: IPRATROPIUM BROMIDE NEB SOLN 0.02% 2.5 ML VIAL INH SCH ×3 (03:11→11:09)
[2018-10-28] MEDS: guaiFENesin 600 MG TABCR PO SCH (08:32)
[2018-10-28] MEDS: METOPROLOL SUCC 50MG EXT REL TAB PO SCH (08:32)
[2018-10-28] MEDS: ASPIRIN 81 MG ECTAB PO SCH (08:32)
[2018-10-28] MEDS: ATORVASTATIN 40 MG TAB PO SCH (08:32)
[2018-10-28] MEDS: NICOTINE 14 MG/24 HR PATCH TD SCH (08:33)
[2018-10-28] MEDS: predniSONE 20 MG TAB PO SCH (08:33)
[2018-10-28] MEDS: ENOXAPARIN INJ 30 MG/0.3 ML SYR SQ SCH (08:33)
[2018-10-28] MEDS: OSELTAMIVIR PHOSPHATE 75 MG CAP PO SCH (08:33)
[2018-10-28] MEDS: INSULIN ASPART 100 UNITS/ML 3 ML PEN SC SCH ×2 (08:35→13:13)
--- NOTE | 2018-10-28 12:07 | Discharge Summary ---
Date of Service October 28, 2018 Admission HPI Per Admitting Provider History obtained from patient and records. Medical history significant for hypertension, hyperlipidemia, COPD as per records, ongoing tobacco abuse, past alcohol abuse, hx White's palsy status post steroid Rx Recent confinement September 2017 for pneumonia, subsegmental PE, multiple rib fractures. Patient subsequently completed 3-month Coumadin course outpatient. Few days history of cough symptoms, unable to expectorate, sick contacts, malaise, worsening shortness of breath. No chest pain. At the ER, patient received Solu-Medrol and neb treatment for possible COPD exacerbation. Aspirin and nitro patch administered for elevated troponin. 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 Admission Exam Per Admitting Provider Temp 37.5 C 10/25/18 19:31 Pulse 108 H 10/25/18 19:31 Resp 28 H 10/25/18 19:31 BP 154/90 H 10/25/18 19:31 Pulse Ox 96 10/25/18 19:35 Physical Exam: GENERAL: Slightly anxious/uncomfortable, minimal respiratory distress SKIN: Normal color, warm HEENT: Reservoir palpebral conjunctivae, no ptosis, dry buccal mucosa, left facial symmetry NECK : Supple, no tenderness CHEST : Decreased breath sounds, expiratory wheezes , no tenderness HEART : Tachycardic , no obvious murmurs ABDOMEN: Some distention, nontender EXTREMITIES : No LE swelling/tenderness, no other conspicuous deformities noted NEUROLOGIC : Coherent, L facial asymmetry, no other gross focality Principal Diagnosis Acute hypoxemic respiratory failure COPD Influenza A Hypoxia Alcohol abuse Discharge Exam ROS-No Headache, No Visual Changes, No Fever, No Chills, No Neck Pain or Stiffness, No Chest Pain, No Palpitations, No SOB, + RIVAS, + Cough, No Sputum, + Wheezing, No Abdominal Pain, No Diarrhea, No Hematemesis, No Hemoptysis, No Unexpected Weight Loss, No Flank pain, No Melena, No Hematochezia, No Frequency , No Urgency, No Burning, No Hematuria, No Rashes, No Diaphoresis. Appetite is Normal Physical Exam Gen-AAO x 3, NAD, Afebrile Head-NCAT, EOMI, PERRLA, Anicteric Sclera, No Posterior Pharyngeal Erythema Neck-Supple, No JVD, No Thyromegaly, No Masses, No LAD, No Bruits Lungs-B/L Wheezing much better after cough, Baseline per patient Chest-No S4, +S1, +S2, No S3, No Murmurs, No Rubs, No Gallops, No Ectopy Abdomen-Soft, Bowel Sounds Present, Non Tender, Non Distended, No Hepatomegaly, No Splenomegaly, No Palpable Masses, No Rebound, No Rigidity, No Guarding Musculoskeletal-Full Range of Motion Bilaterally, No CVAT Extremities-No Cyanosis, No Clubbing, No Edema Nuero-+Facial Droop, Motor WNL, DTRs WNL, Strength WNL Psych-Normal Mood Discharge Data Allergies Allergy/AdvReac Type Severity Reaction Status Date / Time No Known Allergies Allergy Unverified 10/25/18 17:52 Consultations 10/25/18 19:25 ED Decision to Admit Stat 10/26/18 02:17 Consult Cardiology Routine Hospital Course (1) Acute hypoxemic respiratory failure: Acute COPD exacerbation Influenza A Ongoing Tobacco use disorder CXR:Mild emphysematous change. No acute process. 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 Atrial Fibrillation: Newly diagnosed Spontaneously converted to sinus Type II PA due to demand ischemia Denies chest pain, palpitations Continue Metoprolol Also on aspirin Cardiology f/u HTN: Elevated on presentation BP stable now Continue Metoprolol Dyslipidemia: Continue Statins H/O PE Previously on coumadin Currently not on anticoagulation H/O White's palsy Stable DVT PFX Lovenox SQ Code Status Full code DC today Total Time Total Time Spent Total Time Spent (In Minutes): 55 mins Total Time Includes: Examination of the Patient, Discharge Planning, Medication Reconciliation and Communication With Other Providers
[2018-10-28] MEDS: ACETAMINOPHEN 325 MG TAB PO PRN (13:16)
== END 2018-10-28 14:39 | disposition home health service (06) | DRG 189 ==
LOC: ED 17:17 → 2W 20:01 → SUATTDRO 20:01 → 2W 20:20
DX: I21.A1 Myocardial infarction type 2; R73.03 Prediabetes; F17.210 Nicotine dependence, cigarettes, uncomplicated; J10.00 Influenza due to other identified influenza virus with unspecified type of pneumonia; E78.5 Hyperlipidemia, unspecified; I10 Essential (primary) hypertension; I48.91 Unspecified atrial fibrillation; Z86.711 Personal history of pulmonary embolism; Z79.82 Long term (current) use of aspirin; F10.10 Alcohol abuse, uncomplicated; J96.01 Acute respiratory failure with hypoxia; J44.0 Chronic obstructive pulmonary disease with (acute) lower respiratory infection; Z80.6 Family history of leukemia; J44.1 Chronic obstructive pulmonary disease with (acute) exacerbation

== ENCOUNTER 2021-03-03 12:52 | Inpatient (IN) ==
--- NOTE | 2021-03-03 14:01 | XRay Report ---
XR chest 1V portable CLINICAL HISTORY: Dyspnea COMPARISON STUDY: 12/03/2020 FINDINGS: The heart is normal in size. There is diffuse elevation of interstitium, likely secondary t o congestive failure/pulmonary edema. A bilateral interstitial infectious/inflammatory processes coul d appear similar, and clinical and radiographic follow-up will be necessary.[There are no large pleur al effusions. Underlying emphysema is suspected. 26 mm right perihilar nodule versus summation. Radio graphic follow-up recommended IMPRESSION: 1. Diffuse elevation of interstitium. While likely secondary to congestive failure/pulmonary edema, a bilateral interstitial infectious/inflammatory processes could appear similar 2. 26 mm right perihilar nodule versus summation. Neoplasm is unlikely as no abnormalities were ident ified in this area on the prior November 2020 study. Nevertheless radiographic follow-up is recommended. ACT 112: Negative or not required by law. Electronically signed by: Jeremías Pineda M.D. 03/03/2021 2:00 PM
[2021-03-03 14:04] LABS: Basophils # (auto) 0.02 K/uL (0-0.2); Basophils % (auto) 0.1 %; Eosinophils # (auto) 0.01 K/uL (0-0.5); Hematocrit (blood only) 37.3 % (42-52); Hemoglobin 12.1 g/dL (14.0-18.0); Immature Granulocytes # (auto) 0.11 K/uL (0.00-0.02); Immature Granulocytes % (auto) 0.5 %; Lymphocytes # (auto) 1.09 K/uL (1.2-3.4); Lymphocytes % (auto) 5.4 %; Mean Corpuscular Hemoglobin 29.7 pg (25-34); Mean Corpuscular Hgb Conc 32.4 g/dL (32-36); Mean Corpuscular Volume 91.4 fL (80-100); Monocytes # (auto) 2.17 K/uL (0.11-0.59); Monocytes % (auto) 10.8 %; Neutrophils # (auto) 16.65 K/uL (1.4-6.5); Neutrophils % (auto) 83.2 %; Platelet Count 305 K/uL (130-400); RDW Coefficient of Variation 13.9 % (11.5-14.5); RDW Standard Deviation 46.4 fL (36.4-46.3); Red Blood Count 4.08 M/uL (4.7-6.1); White Blood Count 20.05 K/uL (4.8-10.8)
[2021-03-03 14:22] LABS: Alanine Aminotransferase 28 U/L (12-78); Albumin Level 2.8 gm/dl (3.4-5.0); Aspartate Aminotransferase 31 U/L (15-37); Blood Urea Nitrogen 13 mg/dl (7-18); Calcium 8.7 mg/dl (8.5-10.1); Carbon Dioxide 28 mmol/L (21-32); Chloride 98 mmol/L (98-107); Est GFR (African American) 102.8 ml/min; Est GFR (Non-African American) 88.7 ml/min; Glucose 109 mg/dl (70-99); Potassium 4.6 mmol/L (3.5-5.1); Sodium 135 mmol/L (136-145)
[2021-03-03] MEDS ORDERED: methylPREDNISolone 125 MG/2 ML VIAL IV STA (14:23)
[2021-03-03] MEDS ORDERED: ALBUT/IPRATROP 3MG/0.5MG NEB 3 ML VIAL NEB STA (14:23)
[2021-03-03 14:33] LABS: Albumin Globulin Ratio 0.7 (0.9-2); Alkaline Phosphatase 105 U/L (45-117); Bilirubin,Total 1.2 mg/dl (0.2-1); Globulin 4.3 gm/dl (2.5-4.0); NT Pro B Type Natriuretic Pept 3132 pg/ml (0-900); Total Protein 7.1 gm/dl (6.4-8.2)
[2021-03-03 15:36] LABS: Troponin I 0.493 ng/ml (0-0.045)
[2021-03-03] MEDS ORDERED: VANCOMYCIN HCL 1,500 MG in SODIUM CHLORIDE 0.9% 500 ML IV ONE (15:42)
[2021-03-03] MEDS ORDERED: VANCOMYCIN CONSULT ACTIVE PRN (15:42)
[2021-03-03] MEDS ORDERED: CEFEPIME 2,000 MG/20 ML VIAL IV STA (15:42)
--- NOTE | 2021-03-03 16:28 | Emergency Department Note ---
Impression & Plan Pneumonia, COPD exacerbation, Elevated troponin, Congestive heart failure ED Provider Note INFORMANT: Patient ED PROVIDER(S): Andreas Hickman MD CHIEF COMPLAINT: Shortness of breath PLAN: Disposition: Admitted Condition: Good Outpatient prescription management: none Referral: None MEDICAL DECISION MAKING: Patient presented with shortness of breath. He had concerns for pneumonia. C hest x-ray was concerning for infection. The patient had a significantly elevated white blood cell count at 20,000. His troponin and BNP were also elevated. The patient received a DuoNeb and Solu-Medrol. He was given broad- spectrum antibiotics with cefepime and vancomycin. The patient had a Covid test performed. [facility] Patient will need further management in the hospital. Patient and daughter were informed and were in agreement. Triage Nursing notes reviewed and agree them. Vital Signs: reviewed and remarkable for no significant abnormalities Differential diagnosis: Reactive airway disease, pneumonia, pneumothorax, COPD, CHF, infections, cardiac ischemia, pulmonary embolism, musculoskeletal, gastrointestinal, as well as other pathologies. Diagnostics interpreted by me: ECG: Twelve-lead ECG reveals normal sinus rhythm at 95 bpm. Septal Q waves present. No ST elevation or depression. No PVCs. Normal axis and intervals. Cardiac Monitoring: Cardiac monitoring ordered by me: The patient was placed on continuous cardiac monitoring and observed. It revealed a normal sinus rhythm at 96 beats per minute without ectopy or evidence of dysrhythmia. Imaging studies: Chest x-ray shows right perihilar fullness. Infectious versus inflammatory change bilaterally. Mild fluid overload noted. I refer you to the EMR for further details. HPI: The patient is a 70 year old male who presents to the Emergency Room with complaints of shortness of breath. This started this last week and is worsening. The patient is concerned he is developing pneumonia. The patient also notes the following associated symptoms, productive cough. The patient has increased his oxygen from 2-4 for relieving factors. Current pain is rated as 0/10. Patient has a history of oxygen dependent COPD. Pt denies LOC, headache, fevers, chills, diaphoresis, visual changes, neck pain, chest pain, nausea, vomiting, abdominal pain, back pain, melena, hematochezia, urinary symptoms, numbness, weakness, lymphadenopathy, rash, or other complaints. ROS: See above HPI for pertinent positives & negatives. A total of 10 systems reviewed and were otherwise negative. PAST MEDICAL HISTORY:See Below , COPD PAST SURGICAL HISTORY:See Below, FAMILY HISTORY:See Below SOCIAL HISTORY:See Below, smoker HOME MEDICATIONS:See Below ALLERGIES:See Below VITALS:See Below PHYSICAL EXAMINATION: GENERAL: Awake, alert, dyspneic-appearing, in no distress HENT: Normocephalic, atraumatic. Oropharynx unremarkable. EYES: Normal conjunctiva. Sclera non-icteric. NECK: Inspection normal. Non-tender. Supple. No nuchal rigidity. FROM. No masses. RESPIRATORY: Scattered rhonchi and wheezes. No rales. Increased respiratory effort. CARDIAC: Normal rate. Normal rhythm. No murmurs. No rubs. Extremities warm and well perfused. Pulses equal. No JVD. GI: Soft, non-distended. No tenderness to palpation. No rebound or guarding. No masses. RECTAL: Deferred. MUSCULOSKELETAL: Atraumatic. Chest examination reveals no tenderness. The back is symmetrical on inspection without obvious abnormality. There is no CVA tenderness to palpation. No joint edema. LOWER EXTREMITIES: Calves are equal size bilaterally and non-tender. No edema. No discoloration. NEURO: Normal sensorium. No sensory or motor deficits noted. SKIN: No rash or jaundice noted. Andreas Hickman MD Past Med/Surg History Medical History Atrial fibrillation during hospitalization 3 yrs ago--no current issues now, follows with Dr. Garcia White's palsy Emphysema of lung inhaler/nebulizer daily Hypoxia On home oxygen therapy 2L N/C at all times, sometimes up to 3L if needed for exertion Osteoarthritis Pulmonary embolism 2016--no blood thinners, only aspirin--d/t severe fall Tinnitus of both ears Surgical History History of esophagogastroduodenoscopy (EGD) (~12/03/20) had food impaction History of esophagogastroduodenoscopy (EGD) (~12/20/20) with dilation History of tonsillectomy History of tooth extraction all upper teeth removed Family History Other No family history of adverse response to anesthesia Social History Smoking Status: Current every day smoker Cigarettes Per Day: 10 a day; Second Hand Exposure: No; Hx Alcohol Use: No Hx Substance Use: No Preferred Language: Slovenian Communication Ability: Effective Citizenship Instructor Required: No Beliefs That Will Affect Care: None Current Living Situation: Alone Feels Safe at Home: Yes Assistive Devices: Denture - Upper, Glasses, Nebulizer and Oxygen - Continuous Allergies Allergies Allergy/AdvReac Type Severity Reaction Status Date / Time varenicline [From Chantix] AdvReac Mild Nausea Verified 01/12/21 13:02 Home Meds Home Medications Medication Instructions Recorded Confirmed aspirin 81 mg PO QAM 10/25/18 03/03/21 atorvastatin 40 mg PO QAM 10/25/18 03/03/21 albuterol sulfate [Ventolin HFA] 2 inha INH Q4H PRN 12/03/20 03/03/21 Previous Rx's Medication Instructions Recorded metoprolol succinate 50 mg PO QAM #30 tab 10/28/18 ipratropium 0.5 mg-albuterol 3 mg 3 ml INHALATION Q4H PRN #540 ml 08/02/20 (2.5 mg base)/3 mL nebulization soln budesonide-formoterol HFA 160 2 puff INH BID #10.2 gm 08/09/20 mcg-4.5 mcg/actuation aerosol inhaler Results & Data (ED) Vital Signs Vital Signs - 24 hr 03/03/21 13:00 03/03/21 13:30 03/03/21 14:14 Temperature 37.4 C Temperature Source Temporal Artery Scan Pulse Rate 101 H Pulse Rate [Apical] 97 H Respiratory Rate 20 16 Respiratory Effort / Characteristics Blood Pressure 105/63 Blood Pressure [Right Arm] 121/68 Blood Pressure Mean 77 Blood Pressure Mean [Right Arm] 85 Blood Pressure Position Sitting Pulse Oximetry 96 90 90 Oxygen Delivery Method Nasal Cannula Nasal Cannula Nasal Cannula Oxygen Flow Rate 4 4 Sepsis Recent Fever Within 48 Hours Yes Sepsis New/Unexplained Change in Mental Status No Sepsis Action Taken by Nursing No Action Required 03/03/21 14:45 Temperature Temperature Source Pulse Rate Pulse Rate [Apical] 96 H Respiratory Rate 18 Respiratory Effort / Characteristics Non-Labored Spontaneous Blood Pressure Blood Pressure [Right Arm] Blood Pressure Mean Blood Pressure Mean [Right Arm] Blood Pressure Position Pulse Oximetry 94 Oxygen Delivery Method Nasal Cannula Oxygen Flow Rate 4 Sepsis Recent Fever Within 48 Hours Sepsis New/Unexplained Change in Mental Status Sepsis Action Taken by Nursing Laboratory Data Result diagrams: 03/03/21 13:50 03/03/21 13:50 Lab Results 03/03/21 03/03/21 03/03/21 Range/Units 13:50 13:50 15:35 WBC 20.05 H (4.8-10.8) K/uL RBC 4.08 L (4.7-6.1) M/uL Hgb 12.1 L (14.0-18.0) g/dL Hct 37.3 L (42-52) % MCV 91.4 (80-100) fL MCH 29.7 (25-34) pg MCHC 32.4 (32-36) g/dL RDW Std Deviation 46.4 H (36.4-46.3) fL RDW Coeff of Isaiah 13.9 (11.5-14.5) % Plt Count 305 (130-400) K/uL MPV 9.0 (7.4-10.4) fL Immature Gran % (Auto) 0.5 % Neut % (Auto) 83.2 % Lymph % (Auto) 5.4 % Bond % (Auto) 10.8 % Eos % (Auto) 0.0 % Baso % (Auto) 0.1 % Neut # (Auto) 16.65 H (1.4-6.5) K/uL Lymph # (Auto) 1.09 L (1.2-3.4) K/uL Bond # (Auto) 2.17 H (0.11-0.59) K/uL Eos # (Auto) 0.01 (0-0.5) K/uL Baso # (Auto) 0.02 (0-0.2) K/uL Immature Gran # (Auto) 0.11 H (0.00-0.02) K/uL Sodium 135 L (136-145) mmol/L Potassium 4.6 (3.5-5.1) mmol/L Chloride 98 (98-107) mmol/L Carbon Dioxide 28 (21-32) mmol/L Anion Gap 9.0 (3-11) BUN 13 (7-18) mg/dl Creatinine 0.84 (0.6-1.4) mg/dl Est Cr Clr Drug Dosing Not Reportable Est GFR ( Amer) 102.8 ml/min Est GFR (Non-Af Amer) 88.7 ml/min BUN/Creatinine Ratio 15.0 (10-20) Glucose 109 H (70-99) mg/dl Calcium 8.7 (8.5-10.1) mg/dl Magnesium 2.0 (1.8-2.4) mg/dl Total Bilirubin 1.2 H (0.2-1) mg/dl AST 31 (15-37) U/L ALT 28 (12-78) U/L Alkaline Phosphatase 105 (45-117) U/L Troponin I 0.493 H* (0-0.045) ng/ml NT-Pro-B Natriuret Pep 3132 H (0-900) pg/ml Total Protein 7.1 (6.4-8.2) gm/dl Albumin 2.8 L (3.4-5.0) gm/dl Globulin 4.3 H (2.5-4.0) gm/dl Albumin/Globulin Ratio 0.7 L (0.9-2) COVID-19 Eval Order Covid19 at [facility] Administered Medications Vancomycin HCl 1,500 mg/ (Sodium Chloride) 530 mls @ 200 mls/hr IV NOW ONE Stop: 03/03/21 18:11 Last Admin: 03/03/21 16:03 Dose: 200 mls/hr Documented by: [id number] Discontinued Medications Albuterol (Albut/Ipratrop 3mg/0.5mg Neb 3 Ml Vial) 3 ml NEB NOW STA Stop: 03/03/21 14:24 Last Admin: 03/03/21 14:44 Dose: 3 ml Documented by: [id number] Cefepime HCl (Maxipime) 2,000 mg in 20 mls @ 5 mls/min IV NOW STA; Protocol Stop: 03/03/21 15:45 Last Admin: 03/03/21 16:03 Dose: 5 mls/min Documented by: [id number] Methylprednisolone (Methylprednisolone 125 Mg/2 Ml Vial) 125 mg IV NOW STA Stop: 03/03/21 14:24 Last Admin: 03/03/21 15:43 Dose: 125 mg Documented by: [id number] Imaging Data Radiologist's Impression: Chest X-Ray 03/03/21 13:36 XR chest 1V portable CLINICAL HISTORY: Dyspnea COMPARISON STUDY: 12/03/2020 FINDINGS: The heart is normal in size. There is diffuse elevation of interstitium, likely secondary to congestive failure/pulmonary edema. A bilateral interstitial infectious/inflammatory processes could appear similar, and clinical and radiographic follow-up will be necessary.[There are no large pleural effusions. Underlying emphysema is suspected. 26 mm right perihilar nodule versus summation. Radiographic follow-up recommended IMPRESSION: 1. Diffuse elevation of interstitium. While likely secondary to congestive failure/pulmonary edema, a bilateral interstitial infectious/inflammatory processes could appear similar 2. 26 mm right perihilar nodule versus summation. Neoplasm is unlikely as no abnormalities were identified in this area on the prior November 2020 study. Nevertheless radiographic follow-up is recommended. ACT 112: Negative or not required by law. Electronically signed by: Jeremías Pineda M.D. 03/03/2021 2:00 PM Discharge Plan Visit Data Chief Complaint: Shortness of Breath/Dyspnea Stated Complaint: sob, fever, cough ED Provider: Andreas Hickman Discharge Problem: Pneumonia, COPD exacerbation, Elevated troponin, Congestive heart failure Forms Stand Alone Forms: My W4 Prescriptions Prescriptions: No Action Symbicort 160-4.5 mcg/actuation HFA aerosol inhaler 2 puff INH BID Qty: 10.2 RF: 5 ipratropium-albuterol 0.5 mg-3 mg(2.5 mg base)/3 mL solution for nebulization 3 ml inhalation Q4H PRN (Reason: COPD) Qty: 540 RF: 5 tiotropium bromide [Spiriva Respimat] 2.5 mcg/actuation mist 2 puff inhalation DAILY RF: 0 atorvastatin 40 mg tablet 40 mg PO QAM RF: 0 aspirin 81 mg Tablet,Delayed Release (Dr/Ec) 81 mg PO QAM RF: 0 metoprolol succinate 50 mg Tablet Extended Release 24 Hr 50 mg PO QAM Qty: 30 RF: 0 albuterol sulfate [Ventolin HFA] 90 mcg/actuation HFA aerosol inhaler 2 inha INH Q4H PRN (Reason: shortness of breath or wheezing) RF: 0
[2021-03-03] MEDS ORDERED: FUROSEMIDE 40 MG/4 ML VIAL IV STA (16:51)
--- NOTE | 2021-03-03 17:08 | Communication Note ---
Date of Service: March 03, 2021 History and physical exam performed by me, as detailed by Huong RAMOS History notable for shortness of breath, worse with exertion; increased cough pr oductive of yellow sputum occasionally blood-tinged, fever at home (recorded 101); sinus congestion and sore throat, anorexia in the past week. On physical exam, General: Elderly man in no acute distress Eyes: PERRL, conjunctivae normal, not pale, anicteric sclerae, EOM intact bilaterally ENMT: External ear and nose normal, oropharynx normal Respiratory: Normal respiratory effort, no respiratory distress, on nasal oxygen (4l/min at home), globally inspiratory and expiratory wheeze, Prolonged expiratory phase Cardiovascular: Pulse is RRR. Heart Sounds: normal S1 and normal S2; no murmurs. Vessels: normal peripheral pulses Extremities: no pedal edema Gastrointestinal (Abdomen): Abdomen is not distended, soft, non-tender to palpation, no guarding, no palpable hepatosplenomegaly, normal bowel sounds Musculoskeletal: No cyanosis or clubbing, all extremities motor strength 5/5, no pedal edema Genitourinary: No CVA tenderness Neurologic: Alert and oriented x 3, No focal weakness, sensation grossly intact Psychiatric: Alert and oriented x 3, euthymic affect, no depressed affect Lab work notable for WBC of 20, hemoglobin of 12.1, troponin of 0.493, BNP of 3132, Covid test was negative. Lactate 0.9 Chest x-ray show ?infiltrate on right lung, prominent vasculature Possible Sepsis Likely due to Pneumonia COPD exacerbation Met SIRS criteria with tachycardia and leukocytosis Check procalcitonin Code Vanco and cefepime in ER. Continue ceftriaxone azithromycin Get CT chest to better evaluate chest x-ray findings BNP is elevated with mildly elevated troponins. Concern for possible congestive heart failure. Patient does not have any history of this. We will give IV Lasix Monitor I's and O's and daily weights Get 2D echo Trend troponins Telemetry monitoring Continue nebs Continue oxygen supplementation Continue steroids for now Agree with plans as detailed by Huong RAMOS
[2021-03-03] MEDS ORDERED: OPTIRAY 320 100ml IV ONE (18:04)
--- NOTE | 2021-03-03 18:17 | CT Scan Report ---
CT OF THE CHEST WITH IV CONTRAST CLINICAL HISTORY: shortness of breath, pneumonia, COPD COMPARISON STUDY: Chest CT dated 05/25/2019, chest x-ray dated 03/03/2021 TECHNIQUE: Following the IV administration of 94 mL of Optiray, CT of the thorax was performed from the thoracic inlet to the lung bases. Images are reviewed in the axial, sagittal, and coronal planes. IV contrast was administered without complication. A dose lowering technique was utilized adhering to the principles of ALARA. CT DOSE: 324.92 mGy.cm FINDINGS: Thyroid: Imaged portions of the thyroid gland are normal in appearance. Thoracic aorta: The thoracic aorta is normal in course and caliber, noting standard 3-vessel arch nancy lawrence. No aneurysm or dissection is seen. Pulmonary vasculature: The pulmonary trunk is normal in caliber. There are no central filling defects identified to suggest pulmonary embolus. Note that this examination was not protocoled for the evalu ation of pulmonary emboli. HEART: The heart is normal in size. There is no pericardial effusion. There are mild coronary artery calcifications. Lungs and pleural spaces: There is pulmonary emphysema. There is significant respiratory motion artif act. There are patchy dependent pulmonary opacities, likely infectious/inflammatory. There is a 15 mm right upper lobe opacity, likely infectious/inflammatory. A few additional scattered nodular opaciti es are visualized. A two-month follow-up CT scan is recommended. Mediastinum: There is no mediastinal lymphadenopathy. There are mildly enlarged mediastinal lymph nod es, likely reactive Sandra: There are mildly enlarged hilar lymph nodes, likely reactive Axilla: Clear. Upper abdomen: Bilateral superior pole renal hypodensities, likely are artifactual. Skeletal structures: There is an old lower thoracic vertebral body compression deformity. IMPRESSION: 1. Significantly motion degraded study 2. Mild mediastinal and hilar adenopathy, likely reactive 3. Patchy nodular bilateral pulmonary airspace opacities with a lower lung zone predominance. These a re likely infectious/inflammatory. A two-month follow-up CT scan is recommended. 4. Pulmonary emphysema ACT 112: Negative or not required by law. Electronically signed by: Jeremías Pineda M.D. 03/03/2021 6:15 PM
--- NOTE | 2021-03-03 19:09 | History & Physical Report ---
Date of Service March 03, 2021 Assessment & Plan (1) Shortness of breath: (2) Pneumonia: (3) COPD exacerbation: (4) Sepsis: (5) Acute CHF: (6) Elevated troponin: -Admit to telemetry -Patient presenting from home with reports of worsening shortness of breath, cough, fever x 1 week -In the ED, CXR shows a CHF versus pneumonia -Meets sepsis criteria: WBC 20 K, mild tachycardia; normal lactate, BP stable -proBNP also elevated so may have some component of CHF as well -S/p cefepime and Vanco in the ED -we will continue with IV ceftriaxone and IV azithromycin -Blood and sputum cultures -CT chest -Nebulizer treatments, incentive spirometer, flutter valve -prednisone 40 mg daily starting tomorrow -Lasix 40 mg IV x 1 dose, reevaluate for additional doses in the morning -Resting echo -Elevated troponin likely secondary to demand ischemia, no acute ST changes on EKG. continue to cycle troponins (7) HTN (hypertension): -BP controlled, continue metoprolol (8) Dyslipidemia: -Continue statin (9) DVT prophylaxis: SQ Lovenox Admission and Anticipated Discharge Date Admission Date: March 03, 2021 History of Present Illness . Chief Complaint: Shortness of breath Primary Care Provider: Ronald Ribera MD 70-year-old male with PMH oxygen dependent COPD, hyperlipidemia, tobacco dependence, and other problems listed below who presents to the ED for evaluation of shortness of breath. Patient reports worsening shortness of breath for the past 1 week. He has had a cough productive for yellow and blood- tinged sputum at times. He has been running a fever of 101. Patient chronically wears 4 L of oxygen. He reports some shortness of breath when lying down at night to sleep however denies lower extremity edema. Does not weigh himself on a day-to-day basis. Denies abdominal pain, nausea, vomiting, diarrhea. No chest pain. Denies lightheadedness, dizziness, diaphoresis, syncopal events. No urinary symptoms. In the ED, CXR shows pneumonia versus CHF. Labs show WBC 20 K, troponin 0 0.493, proBNP 3000. COVID-19 testing negative. EKG does not show any acute ST changes. Patient is saturating well on chronic 4 L of oxygen. Patient was given nebulizer treatment, IV cefepime, IV Solu-Medrol, IV Vanco. Allergies Allergy/AdvReac Type Severity Reaction Status Date / Time varenicline [From Chantix] AdvReac Mild Nausea Verified 01/12/21 13:02 Home Medications Medication Instructions Recorded Confirmed Type aspirin 81 mg PO QAM 10/25/18 03/03/21 History atorvastatin 40 mg PO QAM 10/25/18 03/03/21 History metoprolol succinate 50 mg PO QAM #30 tab 10/28/18 03/03/21 Rx ipratropium 0.5 mg-albuterol 3 mg 3 ml INHALATION Q4H PRN #540 ml 08/02/20 03/03/21 Rx (2.5 mg base)/3 mL nebulization soln budesonide-formoterol HFA 160 2 puff INH BID #10.2 gm 08/09/20 03/03/21 Rx mcg-4.5 mcg/actuation aerosol inhaler albuterol sulfate [Ventolin HFA] 2 inha INH Q4H PRN 12/03/20 03/03/21 History omeprazole 40 mg PO DAILY 03/03/21 03/03/21 History Past Med/Surg History Medical History (Updated 03/03/21 @ 19:10 by RACHEL Soriano) Atrial fibrillation during hospitalization 3 yrs ago--no current issues now, 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 COPD (chronic obstructive pulmonary disease) Dyslipidemia Emphysema of lung inhaler/nebulizer daily HTN (hypertension) Hypoxia On home oxygen therapy 2L N/C at all times, sometimes up to 3L if needed for exertion Osteoarthritis Pulmonary embolism 2016--no blood thinners, only aspirin--d/t severe fall Tinnitus of both ears Surgical History History of esophagogastroduodenoscopy (EGD) (~12/03/20) had food impaction History of esophagogastroduodenoscopy (EGD) (~12/20/20) with dilation History of tonsillectomy History of tooth extraction all upper teeth removed Family History Other No family history of adverse response to anesthesia Social History Smoking Status: Heavy tobacco smoker Cigarettes Per Day: 10 a day; Second Hand Exposure: No; Do You Dip or Chew Tobacco: No; Tobacco Cessation Education Requested by Patient: No Hx Alcohol Use: Yes Alcohol type: beer Hx Substance Use: No Preferred Language: Welsh Communication Ability: Effective Automation Qa Analyst Required: No Beliefs That Will Affect Care: None Current Living Situation: Spouse Other Information That Helps Us Care for You: No Feels Safe at Home: Yes Safety Concerns: Feels Safe At This Time Assistive Devices: Glasses Review of Systems Review of Systems: ROS per HPI, all other systems reviewed and negative Physical Exam Physical Exam: please refer to Dr. Bo's addendum for physical exam Results & Data Results & Data ([facility]) Vital Signs (Past 12 Hours) Vital Signs Temp Pulse Pulse Resp BP BP Pulse Ox 03/03/21 18:35 112 H 03/03/21 18:17 03/03/21 18:15 37.4 C 62 22 157/84 H 94 03/03/21 17:26 91 H 20 126/80 96 03/03/21 16:00 92 H 16 124/72 93 03/03/21 15:00 95 H 16 109/73 96 03/03/21 14:45 96 H 18 94 03/03/21 14:14 97 H 16 121/68 90 03/03/21 13:30 90 03/03/21 13:00 37.4 C 101 H 20 105/63 96 Pulse Ox 03/03/21 18:35 03/03/21 18:17 94 03/03/21 18:15 03/03/21 17:26 03/03/21 16:00 03/03/21 15:00 03/03/21 14:45 03/03/21 14:14 03/03/21 13:30 03/03/21 13:00 Laboratory Results Short CBC 03/03/21 Range/Units 13:50 WBC 20.05 H (4.8-10.8) K/uL Hgb 12.1 L (14.0-18.0) g/dL Hct 37.3 L (42-52) % Plt Count 305 (130-400) K/uL BMP 03/03/21 13:50 Sodium 135 L Potassium 4.6 Chloride 98 Carbon Dioxide 28 BUN 13 Creatinine 0.84 Glucose 109 H Calcium 8.7 Cardiac Enzymes 03/03/21 Range/Units 13:50 Troponin I 0.493 H* (0-0.045) ng/ml Liver Function 03/03/21 Range/Units 13:50 Total Bilirubin 1.2 H (0.2-1) mg/dl AST 31 (15-37) U/L ALT 28 (12-78) U/L Alkaline Phosphatase 105 (45-117) U/L Albumin 2.8 L (3.4-5.0) gm/dl Diagnostic Findings Chest X-Ray 03/03/21 13:36 XR chest 1V portable CLINICAL HISTORY: Dyspnea COMPARISON STUDY: 12/03/2020 FINDINGS: The heart is normal in size. There is diffuse elevation of interstitium, likely secondary to congestive failure/pulmonary edema. A bilateral interstitial infectious/inflammatory processes could appear similar, and clinical and radiographic follow-up will be necessary.[There are no large pleural effusions. Underlying emphysema is suspected. 26 mm right perihilar nodule versus summation. Radiographic follow-up recommended IMPRESSION: 1. Diffuse elevation of interstitium. While likely secondary to congestive failure/pulmonary edema, a bilateral interstitial infectious/inflammatory processes could appear similar 2. 26 mm right perihilar nodule versus summation. Neoplasm is unlikely as no abnormalities were identified in this area on the prior November 2020 study. Nevertheless radiographic follow-up is recommended. ACT 112: Negative or not required by law. Electronically signed by: Jeremías Pineda M.D. 03/03/2021 2:[address] 03/03/21 16:51 CT OF THE CHEST WITH IV CONTRAST CLINICAL HISTORY: shortness of breath, pneumonia, COPD COMPARISON STUDY: Chest CT dated 05/25/2019, chest x-ray dated 03/03/2021 TECHNIQUE: Following the IV administration of 94 mL of Optiray, CT of the thorax was performed from the thoracic inlet to the lung bases. Images are reviewed in the axial, sagittal, and coronal planes. IV contrast was administered without complication. A dose lowering technique was utilized adhering to the principles of ALARA. CT DOSE: 324.92 mGy.cm FINDINGS: Thyroid: Imaged portions of the thyroid gland are normal in appearance. Thoracic aorta: The thoracic aorta is normal in course and caliber, noting standard 3-vessel arch anatomy. No aneurysm or dissection is seen. Pulmonary vasculature: The pulmonary trunk is normal in caliber. There are no central filling defects identified to suggest pulmonary embolus. Note that this examination was not protocoled for the evaluation of pulmonary emboli. HEART: The heart is normal in size. There is no pericardial effusion. There are mild coronary artery calcifications. Lungs and pleural spaces: There is pulmonary emphysema. There is significant respiratory motion artifact. There are patchy dependent pulmonary opacities, likely infectious/inflammatory. There is a 15 mm right upper lobe opacity, likely infectious/inflammatory. A few additional scattered nodular opacities are visualized. A two-month follow-up CT scan is recommended. Mediastinum: There is no mediastinal lymphadenopathy. There are mildly enlarged mediastinal lymph nodes, likely reactive Sandra: There are mildly enlarged hilar lymph nodes, likely reactive Axilla: Clear. Upper abdomen: Bilateral superior pole renal hypodensities, likely are artifactual. Skeletal structures: There is an old lower thoracic vertebral body compression deformity. IMPRESSION: 1. Significantly motion degraded study 2. Mild mediastinal and hilar adenopathy, likely reactive 3. Patchy nodular bilateral pulmonary airspace opacities with a lower lung zone predominance. These are likely infectious/inflammatory. A two-month follow-up CT scan is recommended. 4. Pulmonary emphysema ACT 112: Negative or not required by law. Electronically signed by: Jeremías Pineda M.D. 03/03/2021 6:15 PM Code Status & VTE Plan Code Status Patient is a full code as per Dr. Bo's discussion with him. VTE Prophylaxis Plan VTE Prophylaxis will be ordered: Yes Supervising Physician Co-Signing Physician Notes Date of Service: March 03, 2021 History and physical exam performed by me, as detailed by Huong RAMOS History notable for shortness of breath, worse with exertion; increased cough productive of yellow sputum occasionally blood-tinged, fever at home (recorded 101); sinus congestion and sore throat, anorexia in the past week. On physical exam, General: Elderly man in no acute distress Eyes: PERRL, conjunctivae normal, not pale, anicteric sclerae, EOM intact bilaterally ENMT: External ear and nose normal, oropharynx normal Respiratory: Normal respiratory effort, no respiratory distress, on nasal oxygen (4l/min at home), globally inspiratory and expiratory wheeze, Prolonged expiratory phase Cardiovascular: Pulse is RRR. Heart Sounds: normal S1 and normal S2; no murmurs. Vessels: normal peripheral pulses Extremities: no pedal edema Gastrointestinal (Abdomen): Abdomen is not distended, soft, non-tender to palpation, no guarding, no palpable hepatosplenomegaly, normal bowel sounds Musculoskeletal: No cyanosis or clubbing, all extremities motor strength 5/5, no pedal edema Genitourinary: No CVA tenderness Neurologic: Alert and oriented x 3, No focal weakness, sensation grossly intact Psychiatric: Alert and oriented x 3, euthymic affect, no depressed affect Lab work notable for WBC of 20, hemoglobin of 12.1, troponin of 0.493, BNP of 3132, Covid test was negative. Lactate 0.9 Chest x-ray show ?infiltrate on right lung, prominent vasculature Possible Sepsis Likely due to Pneumonia COPD exacerbation Met SIRS criteria with tachycardia and leukocytosis Check procalcitonin Code Vanco and cefepime in ER. Continue ceftriaxone azithromycin Get CT chest to better evaluate chest x-ray findings BNP is elevated with mildly elevated troponins. Concern for possible congestive heart failure. Patient does not have any history of this. We will give IV Lasix Monitor I's and O's and daily weights Get 2D echo Trend troponins Telemetry monitoring Continue nebs Continue oxygen supplementation Continue steroids for now Agree with plans as detailed by Huong RAMOS
[2021-03-03] MEDS: ALBUT/IPRATROP 3MG/0.5MG NEB 3 ML VIAL NEB SCH (19:28)
[2021-03-03] MEDS: ENOXAPARIN INJ 40 MG/0.4 ML SYR SQ SCH (20:59)
[2021-03-03] MEDS: AZITHROMYCIN 500 MG in DEXTROSE 5% 250 ML IV SCH (20:59)
[2021-03-03] MEDS: NICOTINE 21 MG/24 HR TDSY TD SCH (21:00)
[2021-03-03] MEDS: ACETAMINOPHEN 325 MG TAB PO PRN (22:17)
[2021-03-04] MEDS: cefTRIAXone SODIUM 2,000 MG in DEXTROSE 5% 50 ML IV SCH ×2 (00:05→21:37)
[2021-03-04 05:53] LABS: Hematocrit (blood only) 36.8 % (42-52); Hemoglobin 12.1 g/dL (14.0-18.0); Mean Corpuscular Hemoglobin 29.6 pg (25-34); Mean Corpuscular Hgb Conc 32.9 g/dL (32-36); Mean Platelet Volume 9.2 fL (7.4-10.4); Platelet Count 315 K/uL (130-400); RDW Coefficient of Variation 13.6 % (11.5-14.5); RDW Standard Deviation 45.3 fL (36.4-46.3); Red Blood Count 4.09 M/uL (4.7-6.1); White Blood Count 15.85 K/uL (4.8-10.8)
[2021-03-04 06:32] LABS: BUN Creatinine Ratio 23.2 (10-20); Blood Urea Nitrogen 19 mg/dl (7-18); Calcium 8.5 mg/dl (8.5-10.1); Carbon Dioxide 28 mmol/L (21-32); Chloride 100 mmol/L (98-107); Est GFR (African American) 104.9 ml/min; Est GFR (Non-African American) 90.5 ml/min; Glucose 124 mg/dl (70-99); Potassium 3.8 mmol/L (3.5-5.1); Sodium 137 mmol/L (136-145)
[2021-03-04] MEDS: ALBUT/IPRATROP 3MG/0.5MG NEB 3 ML VIAL NEB SCH ×4 (07:39→19:36)
[2021-03-04] MEDS: FLUTICASONE/VILANTEROL 100/25MCG 14 PUFFS/INHALER INH SCH (08:47)
[2021-03-04] MEDS: ASPIRIN 81 MG ECTAB PO SCH (08:47)
[2021-03-04] MEDS: predniSONE 20 MG TAB PO SCH (08:47)
[2021-03-04] MEDS: PANTOprazole 40 MG TAB PO SCH (08:47)
[2021-03-04] MEDS: ATORVASTATIN 40 MG TAB PO SCH (08:47)
[2021-03-04] MEDS: METOPROLOL SUCC 50MG EXT REL TAB PO SCH (08:47)
--- NOTE | 2021-03-04 09:23 | Electrocardiogram Report ---
Test Reason : Blood Pressure : / mmHG Vent. Rate : 095 BPM Atrial Rate : 095 BPM P-R Int : 160 ms QRS Dur : 086 ms QT Int : 356 ms P-R-T Axes : 073 017 054 degrees QTc Int : 447 ms Normal sinus rhythm RSR' or QR pattern in V1 suggests right ventricular conduction delay Otherwise no significant change When compared with ECG of 27-OCT-2018 07:34, No significant change was found Confirmed by Stepan Sánchez ([id number]) on 03/04/2021 9:23:29 AM Referred By: REFERRED SELF Confirmed By:Stepan Sánchez
--- NOTE | 2021-03-04 10:48 | Hospitalist Progress Note ---
Date of Service March 04, 2021 Assessment & Plan (1) Shortness of breath: (2) Pneumonia: (3) COPD exacerbation: (4) Sepsis: (5) Elevated troponin: Meets sepsis criteria: WBC 20 K, mild tachycardia; normal lactate, BP stable S/p cefepime and Vanco in the ED CT chest showing bilateral lung opacities Continue IV ceftriaxone and azithromycin for community-acquired pneumonia Follow-up blood cultures Continue prednisone Continue neb treatment Patient had elevated troponins and BNP. Possible NSTEMI, from demand in the setting of acute infection. Also heart failure is a possibility though patient has no known history Patient had stress test and 11/25/2018 that was negative. Got IV Lasix yesterday with some diuresis. Will appreciate cardiology evaluation and recommendation Get 2D echo (6) HTN (hypertension): BP controlled Continue metoprolol (7) Dyslipidemia: Continue statin (8) DVT prophylaxis: SQ Lovenox Admission and Anticipated Discharge Date Admission Date: March 03, 2021 Subjective 70-year-old male with PMH oxygen dependent COPD, hyperlipidemia, tobacco dependence, and other problems listed below who presents to the ED for evaluation of shortness of breath. Patient reports worsening shortness of breath for the past 1 week Being managed for Community Acquired Pneumonia and COPD exacerbation. Patient seen and examined Reports improvement in shortness of breath and cough Denied any chest pain, palpitation Denied fevers, chills Denied abd pain, nausea, vomiting, diarrhea, constipation Denied dysuria, freq, hematuria Review of Systems Review of Systems: All systems reviewed & are unremarkable except as noted in Subjective Physical Exam Constitutional: + well hydrated; no acute distress Eyes: PERRL, conjunctivae normal, anicteric sclerae ENMT: external ear and nose normal, oropharynx normal Respiratory: normal respiratory effort; no respiratory distress Mild expiratory wheeze. No crackles Cardiovascular: Rate/Rhythm: regular rate and regular rhythm S1-S2 No pedal edema Gastrointestinal (Abdomen): normal bowel sounds, soft, nontender, no hepatosplenomegaly Musculoskeletal: no cyanosis or clubbing, extremities motor strength 5/5 Neurologic: PERRL, EOMI, accommodation nl, no face palsy, no dysarthria Psychiatric: A+Ox3, euthymic affect Results & Data Results & Data ([facility]) Vital Signs (Past 12 Hours) Vital Signs Temp Pulse Pulse Resp BP Pulse Ox 03/04/21 07:39 36.3 C L 93 H 20 144/80 H 96 03/04/21 07:00 79 03/04/21 03:19 36.5 C 76 20 119/79 98 03/04/21 03:00 89 03/03/21 23:09 36.6 C 85 20 115/76 98 Laboratory Results Abnormal lab results 03/03/21 03/03/21 03/03/21 Range/Units 13:50 13:50 16:34 WBC 20.05 H (4.8-10.8) K/uL RBC 4.08 L (4.7-6.1) M/uL Hgb 12.1 L (14.0-18.0) g/dL Hct 37.3 L (42-52) % RDW Std Deviation 46.4 H (36.4-46.3) fL Neut # (Auto) 16.65 H (1.4-6.5) K/uL Lymph # (Auto) 1.09 L (1.2-3.4) K/uL Spencer # (Auto) 2.17 H (0.11-0.59) K/uL Immature Gran # (Auto) 0.11 H (0.00-0.02) K/uL Sodium 135 L (136-145) mmol/L BUN (7-18) mg/dl BUN/Creatinine Ratio (10-20) Glucose 109 H (70-99) mg/dl Total Bilirubin 1.2 H (0.2-1) mg/dl Troponin I 0.493 H* (0-0.045) ng/ml NT-Pro-B Natriuret Pep 3132 H (0-900) pg/ml Albumin 2.8 L (3.4-5.0) gm/dl Globulin 4.3 H (2.5-4.0) gm/dl Albumin/Globulin Ratio 0.7 L (0.9-2) Procalcitonin 0.91 H (0-0.5) ng/ml 03/03/21 03/04/21 03/04/21 Range/Units 19:59 01:54 05:26 WBC 15.85 H (4.8-10.8) K/uL RBC 4.09 L (4.7-6.1) M/uL Hgb 12.1 L (14.0-18.0) g/dL Hct 36.8 L (42-52) % RDW Std Deviation (36.4-46.3) fL Neut # (Auto) (1.4-6.5) K/uL Lymph # (Auto) (1.2-3.4) K/uL Spencer # (Auto) (0.11-0.59) K/uL Immature Gran # (Auto) (0.00-0.02) K/uL Sodium (136-145) mmol/L BUN (7-18) mg/dl BUN/Creatinine Ratio (10-20) Glucose (70-99) mg/dl Total Bilirubin (0.2-1) mg/dl Troponin I 0.293 H* 0.168 H* (0-0.045) ng/ml NT-Pro-B Natriuret Pep (0-900) pg/ml Albumin (3.4-5.0) gm/dl Globulin (2.5-4.0) gm/dl Albumin/Globulin Ratio (0.9-2) Procalcitonin (0-0.5) ng/ml 03/04/21 Range/Units 05:26 WBC (4.8-10.8) K/uL RBC (4.7-6.1) M/uL Hgb (14.0-18.0) g/dL Hct (42-52) % RDW Std Deviation (36.4-46.3) fL Neut # (Auto) (1.4-6.5) K/uL Lymph # (Auto) (1.2-3.4) K/uL Spencer # (Auto) (0.11-0.59) K/uL Immature Gran # (Auto) (0.00-0.02) K/uL Sodium (136-145) mmol/L BUN 19 H (7-18) mg/dl BUN/Creatinine Ratio 23.2 H (10-20) Glucose 124 H (70-99) mg/dl Total Bilirubin (0.2-1) mg/dl Troponin I (0-0.045) ng/ml NT-Pro-B Natriuret Pep (0-900) pg/ml Albumin (3.4-5.0) gm/dl Globulin (2.5-4.0) gm/dl Albumin/Globulin Ratio (0.9-2) Procalcitonin (0-0.5) ng/ml
--- NOTE | 2021-03-04 11:51 | Cardiology Consultation ---
Date of Consultation March 04, 2021 Assessment & Plan (1) Elevated troponin: Patient is a 70-year-old male with a history of chronic obstructive lung disease, past transient atrial fibrillation and elevated troponins in the respiratory demand. Illness in 2017. Stress nuclear imaging in November 2018 nonischemic. He has presumed coronary artery disease, hypertension and hyperlipidemia on therapies. Presents now with signs and symptoms of COPD exacerbation/pneumonia with associated abnormal laboratory markers included elevated BNP and troponins. EKGs without acute ischemic changes Suspect demand based changes in the setting of acute respiratory demand. Agree with management as already done treating underlying pulmonary issues, dose of furosemide on admission Echocardiogram pending Would continue aspirin beta-ligia and statin Cardiology will follow this admission. Sees Dr. Garcia (2) Pneumonia: (3) COPD exacerbation: (4) HTN (hypertension): (5) Atrial fibrillation: History of Present Illness Reason for Consultation: Elevated troponin, BNP, pneumonia Requesting Physician: Leslie Bo MD Attending Physician: Leslie Bo MD History of Present Illness Patient is a 70-year-old male presents with several weeks history of worsening c ough productive of thick sputum and shortness of breath. Patient presented now "unable to breathe" Chest x-ray and CT scan suggestive of pneumonia possible superimposed congestive heart failure. His underlying and ongoing issues include 1. Chronic obstructive lung disease with ongoing tobacco use, O2 dependent 2. Past heavy alcohol use with recent discontinuation 3. Paroxysmal atrial fibrillation with single event occurring during hospitalization with acute illness September 2017. Course complicated by elevation in troponin 4. Hyperlipidemia on therapy 5. Presumed coronary disease without stress-induced ischemia by stress nuclear imaging November 2018 following troponin elevation with acute illness, coronary calcifications noted on CT Patient referred now for further evaluation. Currently denies any chest pains or recent chest pains. No tachypalpitations syncope or near syncope. As noted has discontinued alcohol several months ago. Anticipates discontinuing tobacco use by his description. Notes blood pressures have been up recently. No syncope or near syncope. Has had worsening productive cough for several days Patient was febrile and hypoxic on initial presentation. BNP is initially elevated as is troponin. Checks x-ray reveals pneumonia with mild increase in interstitial markings as well. EKG without acute ischemic changes. No atrial fibrillation. Echocardiogram is pending Allergies Allergy/AdvReac Type Severity Reaction Status Date / Time varenicline [From Chantix] AdvReac Mild Nausea Verified 01/12/21 13:02 Home Medications Medication Instructions Recorded Confirmed Type aspirin 81 mg PO QAM 10/25/18 03/03/21 History atorvastatin 40 mg PO QAM 10/25/18 03/03/21 History metoprolol succinate 50 mg PO QAM #30 tab 10/28/18 03/03/21 Rx ipratropium 0.5 mg-albuterol 3 mg 3 ml INHALATION Q4H PRN #540 ml 08/02/2003/03 Rx (2.5 mg base)/3 mL nebulization soln budesonide-formoterol HFA 160 2 puff INH BID #10.2 gm 08/09/20 03/03/21 Rx mcg-4.5 mcg/actuation aerosol inhaler albuterol sulfate [Ventolin HFA] 2 inha INH Q4H PRN 12/03/20 03/03/21 History omeprazole 40 mg PO DAILY 03/03/21 03/03/21 History Patient History Medical History Atrial fibrillation during hospitalization 3 yrs ago--no current issues now, 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 COPD (chronic obstructive pulmonary disease) Dyslipidemia Emphysema of lung inhaler/nebulizer daily HTN (hypertension) Hypoxia On home oxygen therapy 2L N/C at all times, sometimes up to 3L if needed for exertion Osteoarthritis Pulmonary embolism 2016--no blood thinners, only aspirin--d/t severe fall Tinnitus of both ears Surgical History History of esophagogastroduodenoscopy (EGD) (~12/03/20) had food impaction History of esophagogastroduodenoscopy (EGD) (~12/20/20) with dilation History of tonsillectomy History of tooth extraction all upper teeth removed Family History Other No family history of adverse response to anesthesia Social History Smoking Status: Heavy tobacco smoker Cigarettes Per Day: 10 a day; Second Hand Exposure: No; Do You Dip or Chew Tobacco: No; Tobacco Cessation Education Requested by Patient: No Hx Alcohol Use: Yes Alcohol type: beer Hx Substance Use: No Preferred Language: Lao Communication Ability: Effective Umbrella Tipper Machine Required: No Beliefs That Will Affect Care: None Current Living Situation: Spouse Other Information That Helps Us Care for You: No Feels Safe at Home: Yes Safety Concerns: Feels Safe At This Time Assistive Devices: Oxygen - Continuous Review of Systems Review of Systems: All systems reviewed & are unremarkable except as noted in HPI & below Physical Exam Constitutional: + ill appearing Eyes: PERRL, conjunctivae normal, anicteric sclerae ENMT: external ear and nose normal, oropharynx normal Neck: trachea midline, no thyromegaly Respiratory: Auscultation: + diminished lung sounds and + rhonchi Cardiovascular: Rate/Rhythm: regular rate and regular rhythm Heart Sounds: + gallop; no murmur Vessels: normal carotid upstroke and radial pulses present; no JVD and no carotid bruit Extremities: no edema Very distant heart sounds Gastrointestinal (Abdomen): normal bowel sounds, soft, nontender, no hepatosplenomegaly Musculoskeletal: no cyanosis or clubbing, extremities motor strength 5/5 Skin: no rashes, warm and dry Neurologic: PERRL, EOMI, accommodation nl, no face palsy, no dysarthria Psychiatric: A+Ox3, euthymic affect Results & Data ([facility]) Vital Signs (Past 12 Hours) Vital Signs Temp Pulse Pulse Resp BP Pulse Ox 03/04/21 11:06 86 18 98 03/04/21 07:39 36.3 C L 93 H 20 144/80 H 96 03/04/21 07:00 79 03/04/21 03:19 36.5 C 76 20 119/79 98 03/04/21 03:00 89 Laboratory Results Laboratory Results - last 24 hr 03/03/21 03/03/21 03/03/21 13:50 13:50 15:35 WBC 20.05 H RBC 4.08 L Hgb 12.1 L Hct 37.3 L MCV 91.4 MCH 29.7 MCHC 32.4 RDW Std Deviation 46.4 H RDW Coeff of Isaiah 13.9 Plt Count 305 MPV 9.0 Immature Gran % (Auto) 0.5 Neut % (Auto) 83.2 Lymph % (Auto) 5.4 Quay % (Auto) 10.8 Eos % (Auto) 0.0 Baso % (Auto) 0.1 Neut # (Auto) 16.65 H Lymph # (Auto) 1.09 L Quay # (Auto) 2.17 H Eos # (Auto) 0.01 Baso # (Auto) 0.02 Immature Gran # (Auto) 0.11 H Sodium 135 L Potassium 4.6 Chloride 98 Carbon Dioxide 28 Anion Gap 9.0 BUN 13 Creatinine 0.84 Est Cr Clr Drug Dosing Not Reportable Est GFR ( Amer) 102.8 Est GFR (Non-Af Amer) 88.7 BUN/Creatinine Ratio 15.0 Glucose 109 H Lactate Calcium 8.7 Magnesium 2.0 Total Bilirubin 1.2 H AST 31 ALT 28 Alkaline Phosphatase 105 Troponin I 0.493 H* NT-Pro-B Natriuret Pep 3132 H Total Protein 7.1 Albumin 2.8 L Globulin 4.3 H Albumin/Globulin Ratio 0.7 L Procalcitonin COVID-19 Eval Order Covid19 at [facility] SARS-CoV-2 (PCR) 03/03/21 03/03/21 03/03/21 15:35 16:34 16:34 WBC RBC Hgb Hct MCV MCH MCHC RDW Std Deviation RDW Coeff of Isaiah Plt Count MPV Immature Gran % (Auto) Neut % (Auto) Lymph % (Auto) Quay % (Auto) Eos % (Auto) Baso % (Auto) Neut # (Auto) Lymph # (Auto) Quay # (Auto) Eos # (Auto) Baso # (Auto) Immature Gran # (Auto) Sodium Potassium Chloride Carbon Dioxide Anion Gap BUN Creatinine Est Cr Clr Drug Dosing Est GFR ( Amer) Est GFR (Non-Af Amer) BUN/Creatinine Ratio Glucose Lactate 0.9 Calcium Magnesium Total Bilirubin AST ALT Alkaline Phosphatase Troponin I NT-Pro-B Natriuret Pep Total Protein Albumin Globulin Albumin/Globulin Ratio Procalcitonin 0.91 H COVID-19 Eval Order SARS-CoV-2 (PCR) NEGATIVE 03/03/21 03/04/21 03/04/21 19:59 01:54 05:26 WBC 15.85 H RBC 4.09 L Hgb 12.1 L Hct 36.8 L MCV 90.0 MCH 29.6 MCHC 32.9 RDW Std Deviation 45.3 RDW Coeff of Isaiah 13.6 Plt Count 315 MPV 9.2 Immature Gran % (Auto) Neut % (Auto) Lymph % (Auto) Quay % (Auto) Eos % (Auto) Baso % (Auto) Neut # (Auto) Lymph # (Auto) Quay # (Auto) Eos # (Auto) Baso # (Auto) Immature Gran # (Auto) Sodium Potassium Chloride Carbon Dioxide Anion Gap BUN Creatinine Est Cr Clr Drug Dosing Est GFR ( Amer) Est GFR (Non-Af Amer) BUN/Creatinine Ratio Glucose Lactate Calcium Magnesium Total Bilirubin AST ALT Alkaline Phosphatase Troponin I 0.293 H* 0.168 H* NT-Pro-B Natriuret Pep Total Protein Albumin Globulin Albumin/Globulin Ratio Procalcitonin COVID-19 Eval Order SARS-CoV-2 (PCR) 03/04/21 05:26 WBC RBC Hgb Hct MCV MCH MCHC RDW Std Deviation RDW Coeff of Isaiah Plt Count MPV Immature Gran % (Auto) Neut % (Auto) Lymph % (Auto) Quay % (Auto) Eos % (Auto) Baso % (Auto) Neut # (Auto) Lymph # (Auto) Quay # (Auto) Eos # (Auto) Baso # (Auto) Immature Gran # (Auto) Sodium 137 Potassium 3.8 D Chloride 100 Carbon Dioxide 28 Anion Gap 9.0 BUN 19 H Creatinine 0.80 Est Cr Clr Drug Dosing Not Reportable Est GFR ( Amer) 104.9 Est GFR (Non-Af Amer) 90.5 BUN/Creatinine Ratio 23.2 H Glucose 124 H Lactate Calcium 8.5 Magnesium Total Bilirubin AST ALT Alkaline Phosphatase Troponin I NT-Pro-B Natriuret Pep Total Protein Albumin Globulin Albumin/Globulin Ratio Procalcitonin COVID-19 Eval Order SARS-CoV-2 (PCR)
[2021-03-04] MEDS: AZITHROMYCIN 500 MG in DEXTROSE 5% 250 ML IV SCH (19:25)
[2021-03-04] MEDS: ACETAMINOPHEN 325 MG TAB PO PRN (19:25)
[2021-03-04] MEDS: ENOXAPARIN INJ 40 MG/0.4 ML SYR SQ SCH (22:29)
[2021-03-05 06:02] LABS: Hematocrit (blood only) 35.8 % (42-52); Hemoglobin 11.9 g/dL (14.0-18.0); Mean Corpuscular Hemoglobin 30.3 pg (25-34); Mean Corpuscular Hgb Conc 33.2 g/dL (32-36); Mean Corpuscular Volume 91.1 fL (80-100); Platelet Count 383 K/uL (130-400); RDW Coefficient of Variation 13.5 % (11.5-14.5); RDW Standard Deviation 45.9 fL (36.4-46.3); Red Blood Count 3.93 M/uL (4.7-6.1); White Blood Count 23.26 K/uL (4.8-10.8)
[2021-03-05 06:42] LABS: BUN Creatinine Ratio 33.3 (10-20); Blood Urea Nitrogen 26 mg/dl (7-18); Calcium 8.4 mg/dl (8.5-10.1); Carbon Dioxide 31 mmol/L (21-32); Chloride 103 mmol/L (98-107); Est GFR (African American) 106.6 ml/min; Est GFR (Non-African American) 91.9 ml/min; Glucose 136 mg/dl (70-99); Magnesium 2.5 mg/dl (1.8-2.4); Potassium 3.8 mmol/L (3.5-5.1); Sodium 140 mmol/L (136-145)
[2021-03-05] MEDS: ALBUT/IPRATROP 3MG/0.5MG NEB 3 ML VIAL NEB SCH ×4 (07:22→20:14)
[2021-03-05] MEDS: METOPROLOL SUCC 50MG EXT REL TAB PO SCH (07:49)
[2021-03-05] MEDS: ASPIRIN 81 MG ECTAB PO SCH (07:49)
[2021-03-05] MEDS: PANTOprazole 40 MG TAB PO SCH (07:49)
[2021-03-05] MEDS: ATORVASTATIN 40 MG TAB PO SCH (07:49)
[2021-03-05] MEDS: ACETAMINOPHEN 325 MG TAB PO PRN (07:49)
[2021-03-05] MEDS: predniSONE 20 MG TAB PO SCH (07:51)
[2021-03-05] MEDS: FLUTICASONE/VILANTEROL 100/25MCG 14 PUFFS/INHALER INH SCH (07:52)
[2021-03-05] MEDS: NICOTINE 21 MG/24 HR TDSY TD SCH (09:28)
--- NOTE | 2021-03-05 11:49 | Hospitalist Progress Note ---
Date of Service March 05, 2021 Assessment & Plan (1) Shortness of breath: (2) Pneumonia: (3) COPD exacerbation: (4) Sepsis: (5) Elevated troponin: On admission, Met sepsis criteria: WBC 20 K, mild tachycardia; normal lactate, BP stable S/p cefepime and Vanco in the ED CT chest showing bilateral lung opacities Continue IV ceftriaxone and azithromycin for community-acquired pneumonia Blood cultures negative so far Continue prednisone Continue neb treatment Leukocytosis improved to 15K yesterday and increased to 23K today. Likely related to pneumonia + steroid therapy Patient had elevated troponins and BNP. Possible NSTEMI, from demand in the setting of acute infection. Also heart failure is a possibility though patient has no known history Patient had stress test and 11/25/2018 that was negative. Got IV Lasix on admission with some diuresis. Appreciate Cardiology eval Awaiting 2D Echo (6) HTN (hypertension): BP controlled Continue metoprolol (7) Dyslipidemia: Continue statin (8) DVT prophylaxis: SQ Lovenox Admission and Anticipated Discharge Date Admission Date: March 03, 2021 Subjective 70-year-old male with PMH oxygen dependent COPD, hyperlipidemia, tobacco dependence, and other problems listed below who presents to the ED for evaluation of shortness of breath. Patient reports worsening shortness of breath for the past 1 week Being managed for Community Acquired Pneumonia and COPD exacerbation. Patient seen and examined Some shortness of breath earlier today that has improved Still reports productive cough Review of Systems Review of Systems: All systems reviewed & are unremarkable except as noted in Subjective Physical Exam Constitutional: + well hydrated; no acute distress Eyes: PERRL, conjunctivae normal, anicteric sclerae ENMT: external ear and nose normal, oropharynx normal Respiratory: normal respiratory effort; no respiratory distress Expiratory wheeze. No crackles Cardiovascular: Rate/Rhythm: regular rate and regular rhythm S1 S2 Gastrointestinal (Abdomen): normal bowel sounds, soft, nontender, no hepatosplenomegaly Musculoskeletal: no cyanosis or clubbing, extremities motor strength 5/5 Neurologic: PERRL, EOMI, accommodation nl, no face palsy, no dysarthria Psychiatric: A+Ox3, euthymic affect Results & Data Results & Data ([facility]) Vital Signs (Past 12 Hours) Vital Signs Temp Pulse Pulse Resp BP BP Pulse Ox 03/05/21 11:25 87 20 96 03/05/21 11:05 123/76 03/05/21 08:00 78 03/05/21 07:50 36.4 C L 86 18 145/80 H 96 03/05/21 07:22 77 18 97 03/05/21 03:33 36.6 C 78 20 126/78 97 03/05/21 01:02 87 Laboratory Results Abnormal lab results 03/03/21 03/05/21 03/05/21 Range/Units 13:50 05:38 05:38 WBC 23.26 H (4.8-10.8) K/uL RBC 3.93 L (4.7-6.1) M/uL Hgb 11.9 L (14.0-18.0) g/dL Hct 35.8 L (42-52) % Sodium 135 L (136-145) mmol/L BUN 26 H (7-18) mg/dl BUN/Creatinine Ratio 33.3 H (10-20) Glucose 109 H 136 H (70-99) mg/dl Calcium 8.4 L (8.5-10.1) mg/dl Magnesium 2.5 H (1.8-2.4) mg/dl Total Bilirubin 1.2 H (0.2-1) mg/dl Troponin I 0.493 H* (0-0.045) ng/ml NT-Pro-B Natriuret Pep 3132 H (0-900) pg/ml Albumin 2.8 L (3.4-5.0) gm/dl Globulin 4.3 H (2.5-4.0) gm/dl Albumin/Globulin Ratio 0.7 L (0.9-2)
--- NOTE | 2021-03-05 12:25 | XCELERA ---
[id number]
--- NOTE | 2021-03-05 16:57 | Cardiology Progress Note ---
Date of Service March 05, 2021 Assessment & Plan (1) Shortness of breath: The symptoms have not improved significantly. Being treated for both pneumonia and COPD. He may have an element of pulmonary vascular congestion. He was administered a single dose of diuretic at the time admission. However, it does not appear to have affected a significant diuresis. I think 1 additional dose of diuretic may provide some improvement. Overall LV systolic function normal. He is not appear to be severely volume overloaded in no evidence of right ventricular failure on exam. (2) Atrial fibrillation: In sinus rhythm. Remote history of atrial fibrillation during acute illness. Admission and Anticipated Discharge Date Admission Date: March 03, 2021 Subjective The patient continues to have some breathing difficulty. He attempted to ambulate earlier today and had significant dyspnea. Still limited with respect activity. Review of Systems Review of Systems: Per HPI Physical Exam 2 Physical Exam: The patient is alert and oriented. Mood and affect appeared normal. He answered all questions appropriately. HEENT: Pupils are equal and reactive to light and accommodation. Extraocular movements are intact. The sclerae are anicteric. Neuro: Cranial nerves intact Lungs: Some crackles at the bases bilaterally. Poor excursion with prolonged expiratory time. Expiratory wheezing noted. Cardiac: Heart demonstrates a regular rate and rhythm. Normal S1 and S2. No murmurs on examination. Pulses: The patient has palpable radial pulses bilaterally that are equal in intensity Extremities: There was no evidence of hypoperfusion. There is no cyanosis or clubbing. There is no edema. Skin: I did not appreciate any rashes on examination today. Results & Data ([facility]) Vital Signs (Past 12 Hours) Vital Signs Temp Pulse Pulse Pulse Resp BP BP 03/05/21 16:47 36.2 C L 87 20 137/74 03/05/21 16:24 83 03/05/21 15:23 85 20 03/05/21 11:25 87 20 03/05/21 11:05 37.1 C 95 H 20 123/76 03/05/21 08:00 78 03/05/21 07:50 36.4 C L 86 18 145/80 H 03/05/21 07:22 77 18 Pulse Ox 03/05/21 16:47 94 03/05/21 16:24 03/05/21 15:23 92 03/05/21 11:25 96 03/05/21 11:05 95 03/05/21 08:00 03/05/21 07:50 96 03/05/21 07:22 97 Laboratory Results Abnormal Lab Results 03/05/21 03/05/21 05:38 05:38 WBC 23.26 H RBC 3.93 L Hgb 11.9 L Hct 35.8 L MCV 91.1 MCH 30.3 MCHC 33.2 RDW Std Deviation 45.9 RDW Coeff of Isaiah 13.5 Plt Count 383 MPV 9.0 Sodium 140 Potassium 3.8 Chloride 103 Carbon Dioxide 31 Anion Gap 6.0 BUN 26 H Creatinine 0.77 Est Cr Clr Drug Dosing Not Reportable Est GFR ( Amer) 106.6 Est GFR (Non-Af Amer) 91.9 BUN/Creatinine Ratio 33.3 H Glucose 136 H Calcium 8.4 L Magnesium 2.5 H Diagnostic Findings Echocardiogram performed today revealed preserved LV systolic function with mildly reduced RV systolic function. PG Care Time/CCT Total # of Minutes Spent Total Time Spent with Patient: Total time spent is greater than 50% in coordination of care (as documented) at patient's floor/unit and/or counseling patient: Coding Level of Care Code 36267 Subseq Hosp Care Lvl 2 Diagnoses Shortness of breath R06.02 Atrial fibrillation I48.91
[2021-03-05] MEDS ORDERED: FUROSEMIDE 40 MG in SYRINGE 0 ML IV ONE (17:15)
[2021-03-05] MEDS: NICOTINE POLACRILEX 2 MG GUM MT PRN (17:44)
[2021-03-05] MEDS: AZITHROMYCIN 500 MG in DEXTROSE 5% 250 ML IV SCH (19:23)
[2021-03-05] MEDS: cefTRIAXone SODIUM 2,000 MG in DEXTROSE 5% 50 ML IV SCH (19:24)
[2021-03-05] MEDS: ENOXAPARIN INJ 40 MG/0.4 ML SYR SQ SCH (21:00)
[2021-03-06 06:26] LABS: Hematocrit (blood only) 37.5 % (42-52); Hemoglobin 12.3 g/dL (14.0-18.0); Mean Corpuscular Hemoglobin 29.5 pg (25-34); Mean Corpuscular Hgb Conc 32.8 g/dL (32-36); Mean Corpuscular Volume 89.9 fL (80-100); Mean Platelet Volume 9.1 fL (7.4-10.4); Platelet Count 382 K/uL (130-400); RDW Coefficient of Variation 13.8 % (11.5-14.5); RDW Standard Deviation 45.6 fL (36.4-46.3); Red Blood Count 4.17 M/uL (4.7-6.1); White Blood Count 16.57 K/uL (4.8-10.8)
[2021-03-06 07:06] LABS: BUN Creatinine Ratio 34.6 (10-20); Blood Urea Nitrogen 24 mg/dl (7-18); Carbon Dioxide 30 mmol/L (21-32); Chloride 104 mmol/L (98-107); Est GFR (African American) 112.1 ml/min; Est GFR (Non-African American) 96.8 ml/min; Glucose 108 mg/dl (70-99); Potassium 3.8 mmol/L (3.5-5.1); Sodium 140 mmol/L (136-145)
[2021-03-06] MEDS: ALBUT/IPRATROP 3MG/0.5MG NEB 3 ML VIAL NEB SCH ×4 (07:13→19:32)
[2021-03-06] MEDS: ASPIRIN 81 MG ECTAB PO SCH (08:37)
[2021-03-06] MEDS: METOPROLOL SUCC 50MG EXT REL TAB PO SCH (08:37)
[2021-03-06] MEDS: NICOTINE POLACRILEX 2 MG GUM MT PRN (08:37)
[2021-03-06] MEDS: predniSONE 20 MG TAB PO SCH (08:37)
[2021-03-06] MEDS: PANTOprazole 40 MG TAB PO SCH (08:38)
[2021-03-06] MEDS: FLUTICASONE/VILANTEROL 100/25MCG 14 PUFFS/INHALER INH SCH (08:38)
[2021-03-06] MEDS: ATORVASTATIN 40 MG TAB PO SCH (08:38)
[2021-03-06] MEDS: NICOTINE 21 MG/24 HR TDSY TD SCH (09:26)
--- NOTE | 2021-03-06 10:37 | Hospitalist Progress Note ---
Date of Service March 06, 2021 Assessment & Plan (1) Shortness of breath: (2) Pneumonia: (3) COPD exacerbation: (4) Sepsis: (5) Elevated troponin: On admission, Met sepsis criteria: WBC 20 K, mild tachycardia; normal lactate, BP stable S/p cefepime and Vanco in the ED CT chest showing bilateral lung opacities Continue IV ceftriaxone and azithromycin for community-acquired pneumonia Blood cultures negative so far Continue prednisone Continue neb treatment Leukocytosis improved to 16K from 23K yesterday. Likely related to pneumonia + steroid therapy Patient had elevated troponins and BNP. Possible NSTEMI, from demand in the setting of acute infection. Patient had stress test and 11/25/2018 that was negative. 2D Echo evaluated Cardiology evaluation noted. Heart failure ruled out (6) HTN (hypertension): BP controlled Continue metoprolol (7) Dyslipidemia: Continue statin (8) DVT prophylaxis: SQ Lovenox Get PT/OT evaluation Admission and Anticipated Discharge Date Admission Date: March 03, 2021 Subjective 70-year-old male with PMH oxygen dependent COPD, hyperlipidemia, tobacco dependence, and other problems listed below who presents to the ED for evaluation of shortness of breath. Patient reports worsening shortness of rafy th for the past 1 week Being managed for Community Acquired Pneumonia and COPD exacerbation. Patient seen and examined Still reports productive cough Reports generalized weakness Has dyspnea with minimal exertion Denied any chest pain, palpitations Denied anorexia, chills, nausea, vomiting Review of Systems Review of Systems: All systems reviewed & are unremarkable except as noted in Subjective Physical Exam Constitutional: + well hydrated; no acute distress Eyes: PERRL, conjunctivae normal, anicteric sclerae ENMT: external ear and nose normal, oropharynx normal Respiratory: normal respiratory effort; no respiratory distress On nasal oxygen. Expiratory wheeze, no crackles Cardiovascular: Rate/Rhythm: regular rate and regular rhythm S1 S2 No pedal edema Gastrointestinal (Abdomen): normal bowel sounds, soft, nontender, no hepatosplenomegaly Musculoskeletal: no cyanosis or clubbing, extremities motor strength 5/5 Neurologic: PERRL, EOMI, accommodation nl, no face palsy, no dysarthria Psychiatric: A+Ox3, euthymic affect Results & Data Results & Data ([facility]) Vital Signs (Past 12 Hours) Vital Signs Temp Pulse Pulse Resp BP BP Pulse Ox 03/06/21 07:40 36.7 C 80 20 155/78 H 93 03/06/21 07:13 76 20 96 03/06/21 02:49 36.6 C 78 20 146/75 H 92 03/06/21 01:49 80 03/05/21 23:29 37 C 76 18 131/79 98 Laboratory Results Abnormal lab results 03/06/21 03/06/21 Range/Units 05:49 05:49 WBC 16.57 H (4.8-10.8) K/uL RBC 4.17 L (4.7-6.1) M/uL Hgb 12.3 L (14.0-18.0) g/dL Hct 37.5 L (42-52) % BUN 24 H (7-18) mg/dl BUN/Creatinine Ratio 34.6 H (10-20) Glucose 108 H (70-99) mg/dl Calcium 8.0 L (8.5-10.1) mg/dl
--- NOTE | 2021-03-06 17:38 | Cardiology Progress Note ---
Date of Service March 06, 2021 Assessment & Plan (1) Shortness of breath: Mild improvement in his breathing. He did affect a good diuresis yesterday. I think we will obtain another BNP in the morning and determine if he requires any additional Lasix. (2) Atrial fibrillation: In sinus rhythm. Remote history of atrial fibrillation during acute illness. Admission and Anticipated Discharge Date Admission Date: March 03, 2021 Subjective This afternoon the patient states that her breathing is mildly improved. He still has difficulty with ambulation due to significant dyspnea. No chest pain. No dizziness or lightheadedness with ambulation. Review of Systems Review of Systems: Per HPI Physical Exam Physical Exam: The patient is alert and oriented. Mood and affect appeared normal. He answered all questions appropriately. HEENT: Pupils are equal and reactive to light and accommodation. Extraocular movements are intact. The sclerae are anicteric. Neuro: Cranial nerves intact Lungs: No crackles but poor inspiratory effort and significant expiratory wheezing.. Cardiac: Heart demonstrates a regular rate and rhythm. Normal S1 and S2. No murmurs on examination. Pulses: The patient has palpable radial pulses bilaterally that are equal in intensity Extremities: There was no evidence of hypoperfusion. There is no cyanosis or clubbing. There is no edema. Skin: I did not appreciate any rashes on examination today. Results & Data ([facility]) Vital Signs (Past 12 Hours) Vital Signs Temp Pulse Resp BP Pulse Ox 03/06/21 15:22 80 18 96 03/06/21 15:12 36.8 C 78 20 143/84 H 98 03/06/21 11:07 78 20 95 03/06/21 10:53 36.7 C 77 20 113/79 95 03/06/21 07:40 36.7 C 80 20 155/78 H 93 03/06/21 07:13 76 20 96 Laboratory Results Abnormal Lab Results 03/06/21 03/06/21 05:49 05:49 WBC 16.57 H RBC 4.17 L Hgb 12.3 L Hct 37.5 L MCV 89.9 MCH 29.5 MCHC 32.8 RDW Std Deviation 45.6 RDW Coeff of Isaiah 13.8 Plt Count 382 MPV 9.1 Sodium 140 Potassium 3.8 Chloride 104 Carbon Dioxide 30 Anion Gap 6.0 BUN 24 H Creatinine 0.68 Est Cr Clr Drug Dosing Not Reportable Est GFR ( Amer) 112.1 Est GFR (Non-Af Amer) 96.8 BUN/Creatinine Ratio 34.6 H Glucose 108 H Calcium 8.0 L PG Care Time/CCT Total # of Minutes Spent Total Time Spent with Patient: Total time spent is greater than 50% in coordination of care (as documented) at patient's floor/unit and/or counseling patient: Coding Level of Care Code 78770 Subseq Hosp Care Lvl 2 Diagnoses Shortness of breath R06.02 Atrial fibrillation I48.91
[2021-03-06] MEDS: ENOXAPARIN INJ 40 MG/0.4 ML SYR SQ SCH (19:58)
[2021-03-06] MEDS: AZITHROMYCIN 500 MG in DEXTROSE 5% 250 ML IV SCH (19:59)
[2021-03-06] MEDS: cefTRIAXone SODIUM 2,000 MG in DEXTROSE 5% 50 ML IV SCH (22:02)
[2021-03-06 22:26] LABS: Appearance Urine Clear (Clear); Bilirubin Urine Negative (Negative); Blood Urine Negative (Negative); Color Urine Yellow; Glucose Urine UA Negative (Negative); Ketones Urine Negative (Negative); Leukocyte Esterase Urine Negative (Negative); Nitrite Urine Negative (Negative); Protein Urine Negative (Negative); Specific Gravity Urine 1.023 (1.000-1.030); Urobilinogen Urine Negative (Negative)
[2021-03-07 05:51] LABS: Hematocrit (blood only) 37.7 % (42-52); Hemoglobin 12.1 g/dL (14.0-18.0); Mean Corpuscular Hgb Conc 32.1 g/dL (32-36); Mean Corpuscular Volume 90.4 fL (80-100); Mean Platelet Volume 8.6 fL (7.4-10.4); Platelet Count 381 K/uL (130-400); RDW Coefficient of Variation 13.8 % (11.5-14.5); RDW Standard Deviation 45.9 fL (36.4-46.3); Red Blood Count 4.17 M/uL (4.7-6.1); White Blood Count 16.25 K/uL (4.8-10.8)
[2021-03-07 06:30] LABS: BUN Creatinine Ratio 30.7 (10-20); Blood Urea Nitrogen 18 mg/dl (7-18); Calcium 7.6 mg/dl (8.5-10.1); Carbon Dioxide 33 mmol/L (21-32); Chloride 104 mmol/L (98-107); Est GFR (African American) 118.9 ml/min; Est GFR (Non-African American) 102.6 ml/min; Glucose 112 mg/dl (70-99); Potassium 3.9 mmol/L (3.5-5.1); Sodium 141 mmol/L (136-145)
[2021-03-07 06:32] LABS: NT Pro B Type Natriuretic Pept 289 pg/ml (0-900)
[2021-03-07] MEDS: ALBUT/IPRATROP 3MG/0.5MG NEB 3 ML VIAL NEB SCH ×4 (07:02→20:14)
[2021-03-07] MEDS: ATORVASTATIN 40 MG TAB PO SCH (07:55)
[2021-03-07] MEDS: NICOTINE POLACRILEX 2 MG GUM MT PRN ×2 (07:55→16:16)
[2021-03-07] MEDS: PANTOprazole 40 MG TAB PO SCH (07:55)
[2021-03-07] MEDS: ASPIRIN 81 MG ECTAB PO SCH (07:55)
[2021-03-07] MEDS: METOPROLOL SUCC 50MG EXT REL TAB PO SCH (07:55)
[2021-03-07] MEDS: FLUTICASONE/VILANTEROL 100/25MCG 14 PUFFS/INHALER INH SCH (07:55)
[2021-03-07] MEDS: NICOTINE 21 MG/24 HR TDSY TD SCH (07:56)
--- NOTE | 2021-03-07 11:07 | Hospitalist Progress Note ---
Date of Service March 07, 2021 Assessment & Plan (1) Sepsis: Resuscitated, pulmonary source-pneumonia. Improved clinically on antibiotics, diuretics and oral steroids with bronchodilator therapy. (2) Pneumonia: Improved on Rocephin and Azithromycin IV. Tolerating PO. As he has received 2gm macrolide, will stop this now and de-escalate to Amoxicilin 500mg PO TID to complete the course. Cont supplemental oxygen which is almost to baseline. (3) COPD exacerbation: Still active wheezing present. Cont prednisone therapy and scheduled bronchodilator therapy. He is on 2LPM at rest and 3LPM with exertion of oxygen supplementation at baseline. Cont to monitor response to treatment. (4) Elevated troponin: Likely related to demand ischemia in setting of sepsis. No further cardiac workup recommended inpatient. Cardiology followed patient through the stay. (5) Chronic respiratory failure with hypoxia: Requires chronic oxygen supplementation 2/2/ COPD. Follows with pulmonary, Dr. Telles. (6) Smoker: Strongly advised to quit. Nicoderm (7) Atrial fibrillation: Transient h/o atrial fibrillation during acute illness, maintains in sinus rhythm. No further therapy recommended at this time by cardiology. (8) CAD (coronary artery disease): Per Cardiology notes, presumed CAD on home therapies including ASA 81mg daily, Atorvastatin 40mg PO qAM, and Toprol XL 50mg PO qAM. Stress nuclear imaging in November 2018 nonischemic. Imaging this admission does show evidence of coronary calcification. (9) DVT prophylaxis: SQ Lovenox Full Code Dispo-patient declines rehab as a transition to home. Currently not at baseline oxygen requirements. Would transfer to floor and hold off discharge for another day at least. Cont working with PT and OT while here. Nurses to move him OOB wtih assist as tolerated to avoid deconditioning. I spoke with his daughter, Vandana, by phone today and gave her update. All questions were answered to her satisfaction. [facility] DO [facility] and Anticipated Discharge Date Admission Date: March 03, 2021 Subjective 70 yo M presented with SOB, ongoing treatment for pneumonia and COPD exacerbation. Last dose of prednisone was this morning, however, still wheezing, so will continue a few more days. Patient denies coughing, fevers, chills and reports still wtih some shortness of breath but greatly improved from admission. Patient states he doesn't use oxygen continuously at home, only PRN and at night. Still smokes. Reports ambulating well wtih PT just now-doesn't want to explore rehab. Review of Systems Review of Systems: All systems reviewed & are unremarkable except as noted in Subjective Physical Exam Physical Exam: CONSTITUTIONAL: WNWD, vitals as above, generally well- appearing EYES: normal conjunctivae, no scleral icterus ENT: external ear and nose normal, MMM, supplemental oxygen in place via NC RESPIRATORY: expiratory wheezing throughout all lung gordon. normal respiratory effort CARDIOVASCULAR: regular rate and rhythm, S1 and 2 heard without murmurs, gallops or rubs, no JVD, no peripheral edema) GASTROINTESTINAL: soft, nontender, nondistended, no guarding MUSCULOSKELETAL: strength 5/5 throughout, head is normocephalic and atraumatic. 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 SKIN: warm and dry NEUROLOGIC: CN 2-12 grossly intact, normal cognition, normal speech, no tremor. No gross focal deficits. PSYCHIATRIC: alert cooperative and oriented to person, place and time. Results & Data Results & Data ([facility]) Vital Signs (Past 12 Hours) Vital Signs Temp Pulse Resp BP Pulse Ox 03/07/21 08:00 77 18 95 03/07/21 07:23 37.1 C 73 20 134/91 94 03/07/21 07:04 73 20 95 03/07/21 02:52 36.7 C 74 20 151/89 H 98 Laboratory Results Short CBC 03/07/21 Range/Units 05:24 WBC 16.25 H (4.8-10.8) K/uL Hgb 12.1 L (14.0-18.0) g/dL Hct 37.7 L (42-52) % Plt Count 381 (130-400) K/uL BMP 03/07/21 05:24 Sodium 141 Potassium 3.9 Chloride 104 Carbon Dioxide 33 H BUN 18 Creatinine 0.59 L Glucose 112 H Calcium 7.6 L Urine 03/06/21 Range/Units 22:00 Urine Color Yellow Urine Appearance Clear (Clear) Urine pH 7.0 (4.5-7.5) Ur Specific [place] 1.023 (1.000-1.030) Urine Protein Negative (Negative) Urine Glucose (UA) Negative (Negative) Medications Administered Current Inpatient Medications Acetaminophen (Acetaminophen 325 Mg Tab) 650 mg PO Q4H PRN PRN Reason: Pain or Fever Stop: 04/02/21 18:16 Last Admin: 03/05/21 07:49 Dose: 650 mg Documented by: Albuterol (Albut/Ipratrop 3mg/0.5mg Neb 3 Ml Vial) 3 ml NEB QIDR [facility] Stop: 04/02/21 18:59 Last Admin: 03/07/21 07:02 Dose: 3 ml Documented by: Aspirin (Aspirin 81 Mg Ectab) 81 mg PO [facility] Stop: 04/03/21 08:59 Last Admin: 03/07/21 07:55 Dose: 81 mg Documented by: Atorvastatin Calcium (Atorvastatin 40 Mg Tab) 40 mg PO [facility] Stop: 04/03/21 08:59 Last Admin: 03/07/21 07:55 Dose: 40 mg Documented by: Enoxaparin Sodium (Enoxaparin Inj 40 Mg/0.4 Ml Syr) 40 mg SQ Q24H [facility] Stop: 04/02/21 20:59 Last Admin: 03/06/21 19:58 Dose: 40 mg Documented by: Fluticasone/Vilanterol (Fluticasone/Vilanterol 100/25mcg 14 Puffs/Inhaler) 1 puffs INH DAILY [facility] Stop: 04/03/21 08:59 Last Admin: 03/07/21 07:55 Dose: 1 puffs Documented by: Ceftriaxone Sodium 2,000 mg/ (Dextrose) 70 mls @ 100 mls/hr IV Q24H [facility]; Protocol Stop: 03/10/21 19:59 Last Infusion: 03/06/21 22:55 Dose: Infused Documented by: Azithromycin 500 mg/ Dextrose 255 mls @ 127.5 mls/hr IV Q24H [facility]; Protocol Stop: 03/10/21 18:59 Last Infusion: 03/06/21 22:04 Dose: Infused Documented by: Metoprolol Succinate (Metoprolol Succ 50mg Ext Rel Tab) 50 mg PO [facility] Stop: 04/03/21 08:59 Last Admin: 03/07/21 07:55 Dose: 50 mg Documented by: Miscellaneous (Remove Nicoderm Patch) 1 ea N/A DAILY@0859 [facility] Stop: 04/03/21 08:58 Last Admin: 03/07/21 07:56 Dose: 1 ea Documented by: Nicotine (Nicotine 21 Mg/24 Hr Tdsy) 21 mg TD QAM [facility] Stop: 04/03/21 08:59 Last Admin: 03/07/21 07:56 Dose: 21 mg Documented by: Nicotine Polacrilex (Nicotine Polacrilex 2 Mg Gum) 1 piece MT PRN PRN PRN Reason: Smoking craving Stop: 04/04/21 16:58 Last Admin: 03/07/21 07:55 Dose: 1 piece Documented by: Pantoprazole Sodium (Pantoprazole 40 Mg Tab) 40 mg PO DAILY [facility] Stop: 04/03/21 08:59 Last Admin: 03/07/21 07:55 Dose: 40 mg Documented by:
--- NOTE | 2021-03-07 11:07 | Cardiology Progress Note ---
Date of Service March 07, 2021 Assessment & Plan (1) Shortness of breath: Mild improvement in his breathing. BNP was normal today. I think he is affected an adequate diuresis. It is very likely his residual dyspnea is related to his primary lung process. I do not think he requires any additional diuresis. At this point cardiology will sign off. We can follow him in the outpatient setting after discharge. (2) Atrial fibrillation: In sinus rhythm. Remote history of atrial fibrillation during acute illness. Admission and Anticipated Discharge Date Admission Date: March 03, 2021 Subjective This morning patient states that his breathing is slightly better. He has been ambulatory to the bathroom with some breathing difficulty. No chest pain. No sense of palpitation. No dizziness or lightheadedness. Review of Systems Review of Systems: Per HPI Physical Exam Physical Exam: The patient is alert and oriented. Mood and affect appeared normal. He answered all questions appropriately. HEENT: Pupils are equal and reactive to light and accommodation. Extraocular movements are intact. The sclerae are anicteric. Neuro: Cranial nerves intact Lungs: No crackles but poor inspiratory effort and significant expiratory wheezing. Cardiac: Heart demonstrates a regular rate and rhythm. Normal S1 and S2. No murmurs on examination. Pulses: The patient has palpable radial pulses bilaterally that are equal in intensity Extremities: There was no evidence of hypoperfusion. There is no cyanosis or clubbing. There is no edema. Skin: I did not appreciate any rashes on examination today. Results & Data ([facility]) Vital Signs (Past 12 Hours) Vital Signs Temp Pulse Resp BP Pulse Ox 03/07/21 08:00 77 18 95 03/07/21 07:23 37.1 C 73 20 134/91 94 03/07/21 07:04 73 20 95 03/07/21 02:52 36.7 C 74 20 151/89 H 98 Laboratory Results Abnormal Lab Results 03/06/21 03/07/21 03/07/21 22:00 05:24 05:24 WBC 16.25 H RBC 4.17 L Hgb 12.1 L Hct 37.7 L MCV 90.4 MCH 29.0 MCHC 32.1 RDW Std Deviation 45.9 RDW Coeff of Isaiah 13.8 Plt Count 381 MPV 8.6 Sodium 141 Potassium 3.9 Chloride 104 Carbon Dioxide 33 H Anion Gap 4.0 BUN 18 Creatinine 0.59 L Est Cr Clr Drug Dosing Not Reportable Est GFR ( Amer) 118.9 Est GFR (Non-Af Amer) 102.6 BUN/Creatinine Ratio 30.7 H Glucose 112 H Calcium 7.6 L NT-Pro-B Natriuret Pep 289 Urine Color Yellow Urine Appearance Clear Urine pH 7.0 Ur Specific [place] 1.023 Urine Protein Negative Urine Glucose (UA) Negative Urine Ketones Negative Urine Blood Negative Urine Nitrite Negative Urine Bilirubin Negative Urine Urobilinogen Negative Ur Leukocyte Esterase Negative PG Care Time/CCT Total # of Minutes Spent Total Time Spent with Patient: Total time spent is greater than 50% in coordination of care (as documented) at patient's floor/unit and/or counseling patient: Coding Level of Care Code 75889 Subseq Hosp Care Lvl 2 Diagnoses Shortness of breath R06.02 Atrial fibrillation I48.91
[2021-03-07] MEDS: predniSONE 20 MG TAB PO SCH (12:39)
[2021-03-07] MEDS: AMOXICILLIN 500 MG CAP PO SCH ×2 (14:15→22:26)
[2021-03-07] MEDS: ACETAMINOPHEN 325 MG TAB PO PRN (16:16)
[2021-03-07] MEDS: ENOXAPARIN INJ 40 MG/0.4 ML SYR SQ SCH (22:26)
[2021-03-08 05:29] LABS: Basophils # (auto) 0.02 K/uL (0-0.2); Basophils % (auto) 0.1 %; Eosinophils # (auto) 0.05 K/uL (0-0.5); Eosinophils % (auto) 0.3 %; Hematocrit (blood only) 36.5 % (42-52); Hemoglobin 11.9 g/dL (14.0-18.0); Immature Granulocytes # (auto) 0.74 K/uL (0.00-0.02); Immature Granulocytes % (auto) 3.9 %; Lymphocytes # (auto) 3.04 K/uL (1.2-3.4); Lymphocytes % (auto) 15.9 %; Mean Corpuscular Hemoglobin 29.3 pg (25-34); Mean Corpuscular Hgb Conc 32.6 g/dL (32-36); Mean Corpuscular Volume 89.9 fL (80-100); Mean Platelet Volume 8.6 fL (7.4-10.4); Monocytes # (auto) 1.43 K/uL (0.11-0.59); Monocytes % (auto) 7.5 %; Neutrophils # (auto) 13.83 K/uL (1.4-6.5); Neutrophils % (auto) 72.3 %; Platelet Count 372 K/uL (130-400); RDW Coefficient of Variation 13.6 % (11.5-14.5); Red Blood Count 4.06 M/uL (4.7-6.1); White Blood Count 19.11 K/uL (4.8-10.8)
[2021-03-08 06:14] LABS: BUN Creatinine Ratio 27.4 (10-20); Blood Urea Nitrogen 18 mg/dl (7-18); Calcium 8.1 mg/dl (8.5-10.1); Carbon Dioxide 32 mmol/L (21-32); Chloride 103 mmol/L (98-107); Est GFR (Non-African American) 99.2 ml/min; Glucose 141 mg/dl (70-99); Potassium 3.8 mmol/L (3.5-5.1); Sodium 139 mmol/L (136-145)
[2021-03-08] MEDS: ALBUT/IPRATROP 3MG/0.5MG NEB 3 ML VIAL NEB SCH ×4 (07:09→19:10)
[2021-03-08] MEDS ORDERED: predniSONE 20 MG TAB PO SCH (09:00)
[2021-03-08] MEDS: NICOTINE 21 MG/24 HR TDSY TD SCH (09:44)
[2021-03-08] MEDS: FLUTICASONE/VILANTEROL 100/25MCG 14 PUFFS/INHALER INH SCH (09:45)
[2021-03-08] MEDS: PANTOprazole 40 MG TAB PO SCH (09:46)
[2021-03-08] MEDS: predniSONE 20 MG TAB PO SCH (09:46)
[2021-03-08] MEDS: METOPROLOL SUCC 50MG EXT REL TAB PO SCH (09:46)
[2021-03-08] MEDS: ATORVASTATIN 40 MG TAB PO SCH (09:46)
[2021-03-08] MEDS: ASPIRIN 81 MG ECTAB PO SCH (09:46)
[2021-03-08] MEDS: AMOXICILLIN 500 MG CAP PO SCH ×3 (09:46→21:26)
[2021-03-08] MEDS: NICOTINE POLACRILEX 2 MG GUM MT PRN ×2 (09:49→19:42)
[2021-03-08] MEDS: ENOXAPARIN INJ 40 MG/0.4 ML SYR SQ SCH (21:26)
--- NOTE | 2021-03-08 23:17 | Hospitalist Progress Note ---
Date of Service March 08, 2021 Assessment & Plan (1) Sepsis: Resuscitated, pulmonary source-pneumonia. Improved clinically on antibiotics, diuretics and oral steroids with bronchodilator therapy. (2) Pneumonia: Improved on Rocephin and Azithromycin IV. Tolerating PO. He received 2gm macrolide, and was de-escalated to Amoxicilin 500mg PO TID to complete the course. tolerating this well. Cont supplemental oxygen which is around his baseline. (3) COPD exacerbation: Still active wheezing present. Cont prednisone therapy and scheduled bronchodilator therapy. He is on 2LPM at rest and 3LPM with exertion of oxygen supplementation at baseline. Cont to monitor response to treatment. (4) Elevated troponin: Likely related to demand ischemia in setting of sepsis. No further cardiac workup recommended inpatient. Cardiology followed patient through the stay. No evidence of ACS or heart failure and no need for further cardiac workup at this time. (5) Chronic respiratory failure with hypoxia: Requires chronic oxygen supplementation 2/2 COPD. Follows with pulmonary, Dr. Telles. (6) Smoker: Strongly advised to quit. Nicoderm (7) Atrial fibrillation: Transient h/o atrial fibrillation during acute illness, maintains in sinus rhythm. No further therapy recommended at this time by cardiology. (8) CAD (coronary artery disease): Per Cardiology notes, presumed CAD on home therapies including ASA 81mg daily, Atorvastatin 40mg PO qAM, and Toprol XL 50mg PO qAM. Stress nuclear imaging in November 2018 nonischemic. Imaging this admission does show evidence of coronary calcification. (9) DVT prophylaxis: SQ Lovenox Full Code Dispo-plan for home tomorrow with home health services for medication review, vitals checks, PT and OT. Discussed the plan with his daughter who is at bedside. All questions were answered. [facility]i [facility] DO [facility] Ad[facility] and Anticipated Discharge Date Admission Date: March 03, 2021 Subjective 70 yo M presented with SOB, ongoing treatment for pneumonia and COPD exacerbation. Feels better from a breathing standpoint and now oxygenating closer to his baseline oxygen needs. Daughter is at bedside. Patient reports he is ambulating close to baseline. He is requesting to go home as soon as able. He is comfortable with going home tomorrow. Denies any cough, fevers, chills. Tolerating p.o. Review of Systems Review of Systems: All systems reviewed & are unremarkable except as noted in Subjective Physical Exam Physical Exam: CONSTITUTIONAL: WNWD, vitals as above, generally well- appearing EYES: normal conjunctivae, no scleral icterus ENT: external ear and nose normal, MMM, supplemental oxygen in place via [place] RESPIRATORY: Expiratory wheezing has improved on the left and still somewhat present on the right side. No crackles or wheezes, normal respiratory effort CARDIOVASCULAR: regular rate and rhythm, S1 and 2 heard without murmurs, gallops or rubs, no JVD, no peripheral edema GASTROINTESTINAL: soft, nontender, nondistended, no guarding MUSCULOSKELETAL: strength 5/5 throughout, head is normocephalic and atraumatic. 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 SKIN: warm and dry NEUROLOGIC: CN 2-12 grossly intact, normal cognition, normal speech, no tremor. No gross focal deficits. PSYCHIATRIC: alert cooperative and oriented to person, place and time. Results & Data Results & Data ([facility]) Vital Signs (Past 12 Hours) Vital Signs Temp Pulse Resp BP Pulse Ox 03/08/21 22:38 36.8 C 76 17 124/78 96 03/08/21 19:11 81 92 03/08/21 15:40 36.8 C 81 16 147/83 H 91 03/08/21 15:09 88 91 Laboratory Results Short CBC 03/08/21 Range/Units 05:12 WBC 19.11 H (4.8-10.8) K/uL Hgb 11.9 L (14.0-18.0) g/dL Hct 36.5 L (42-52) % Plt Count 372 (130-400) K/uL BMP 03/08/21 05:12 Sodium 139 Potassium 3.8 Chloride 103 Carbon Dioxide 32 BUN 18 Creatinine 0.64 Glucose 141 H Calcium 8.1 L Medications Administered Current Inpatient Medications Acetaminophen (Acetaminophen 325 Mg Tab) 650 mg PO Q4H PRN PRN Reason: Pain or Fever Stop: 04/02/21 18:16 Last Admin: 03/07/21 16:16 Dose: 650 mg Documented by: Albuterol (Albut/Ipratrop 3mg/0.5mg Neb 3 Ml Vial) 3 ml NEB QIDR [facility] Stop: 04/02/21 18:59 Last Admin: 03/08/21 19:10 Dose: 3 ml Documented by: Amoxicillin (Amoxicillin 500 Mg Cap) 500 mg PO TID [facility] Stop: 03/14/21 13:59 Last Admin: 03/08/21 21:26 Dose: 500 mg Documented by: Aspirin (Aspirin 81 Mg Ectab) 81 mg PO QAM [facility] Stop: 04/03/21 08:59 Last Admin: 03/08/21 09:46 Dose: 81 mg Documented by: Atorvastatin Calcium (Atorvastatin 40 Mg Tab) 40 mg PO QAM [facility] Stop: 04/03/21 08:59 Last Admin: 03/08/21 09:46 Dose: 40 mg Documented by: Enoxaparin Sodium (Enoxaparin Inj 40 Mg/0.4 Ml Syr) 40 mg SQ Q24H [facility] Stop: 04/02/21 20:59 Last Admin: 03/08/21 21:26 Dose: 40 mg Documented by: Fluticasone/Vilanterol (Fluticasone/Vilanterol 100/25mcg 14 Puffs/Inhaler) 1 puffs INH DAILY [facility] Stop: 04/03/21 08:59 Last Admin: 03/08/21 09:45 Dose: 1 puffs Documented by: Metoprolol Succinate (Metoprolol Succ 50mg Ext Rel Tab) [facility] Stop: 04/03/21 08:59 Last Admin: 03/08/21 09:46 Dose: 50 mg Documented by: Miscellaneous (Remove Nicoderm Patch) 1 ea N/A DAILY@0859 [facility] Stop: 04/03/21 08:58 Last Admin: 03/08/21 09:46 Dose: 1 ea Documented by: Nicotine (Nicotine 21 Mg/24 Hr Tdsy) 21 mg TD QAM [facility] Stop: 04/03/21 08:59 Last Admin: 03/08/21 09:44 Dose: 21 mg Documented by: Nicotine Polacrilex (Nicotine Polacrilex 2 Mg Gum) 1 piece MT PRN PRN PRN Reason: Smoking craving Stop: 04/04/21 16:58 Last Admin: 03/08/21 19:42 Dose: 1 piece Documented by: Pantoprazole Sodium (Pantoprazole 40 Mg Tab) 40 mg PO DAILY [facility] Stop: 04/03/21 08:59 Last Admin: 03/08/21 09:46 Dose: 40 mg Documented by: Prednisone (Prednisone 20 Mg Tab) 40 mg PO DAILY [facility] Stop: 03/12/21 11:44 Last Admin: 03/08/21 09:46 Dose: 40 mg Documented by:
[2021-03-09 06:25] LABS: Hematocrit (blood only) 39.8 % (42-52); Hemoglobin 13.3 g/dL (14.0-18.0); Mean Corpuscular Hemoglobin 30.3 pg (25-34); Mean Corpuscular Hgb Conc 33.4 g/dL (32-36); Mean Corpuscular Volume 90.7 fL (80-100); Mean Platelet Volume 8.7 fL (7.4-10.4); Platelet Count 414 K/uL (130-400); RDW Coefficient of Variation 13.8 % (11.5-14.5); RDW Standard Deviation 45.8 fL (36.4-46.3); Red Blood Count 4.39 M/uL (4.7-6.1); White Blood Count 26.01 K/uL (4.8-10.8)
[2021-03-09] MEDS: ALBUT/IPRATROP 3MG/0.5MG NEB 3 ML VIAL NEB SCH ×3 (06:59→15:34)
[2021-03-09 07:13] LABS: BUN Creatinine Ratio 23.6 (10-20); Blood Urea Nitrogen 18 mg/dl (7-18); Calcium 8.1 mg/dl (8.5-10.1); Carbon Dioxide 32 mmol/L (21-32); Chloride 104 mmol/L (98-107); Est GFR (African American) 107.7 ml/min; Est GFR (Non-African American) 92.9 ml/min; Glucose 99 mg/dl (70-99); Sodium 139 mmol/L (136-145)
[2021-03-09] MEDS: NICOTINE POLACRILEX 2 MG GUM MT PRN ×2 (08:22→15:15)
[2021-03-09] MEDS: NICOTINE 21 MG/24 HR TDSY TD SCH (08:23)
[2021-03-09] MEDS: ASPIRIN 81 MG ECTAB PO SCH (08:25)
[2021-03-09] MEDS: FLUTICASONE/VILANTEROL 100/25MCG 14 PUFFS/INHALER INH SCH (08:25)
[2021-03-09] MEDS: AMOXICILLIN 500 MG CAP PO SCH ×2 (08:25→15:15)
[2021-03-09] MEDS: METOPROLOL SUCC 50MG EXT REL TAB PO SCH (08:26)
[2021-03-09] MEDS: predniSONE 20 MG TAB PO SCH (08:26)
[2021-03-09] MEDS: PANTOprazole 40 MG TAB PO SCH (08:26)
[2021-03-09] MEDS: ATORVASTATIN 40 MG TAB PO SCH (08:26)
--- NOTE | 2021-03-09 17:15 | Discharge Summary ---
Date of Service March 09, 2021 Admission HPI Per Admitting Provider 70-year-old male with PMH oxygen dependent COPD, hyperlipidemia, tobacco dependence, and other problems listed below who presents to the ED for evaluation of shortness of breath. Patient reports worsening shortness of b reath for the past 1 week. He has had a cough productive for yellow and blood- tinged sputum at times. He has been running a fever of 101. Patient chronically wears 4 L of oxygen. He reports some shortness of breath when lying down at night to sleep however denies lower extremity edema. Does not weigh himself on a day-to-day basis. Denies abdominal pain, nausea, vomiting, diarrhea. No chest pain. Denies lightheadedness, dizziness, diaphoresis, syncopal events. No urinary symptoms. In the ED, CXR shows pneumonia versus CHF. Labs show WBC 20 K, troponin 0 0.493, proBNP 3000. COVID-19 testing negative. EKG does not show any acute ST changes. Patient is saturating well on chronic 4 L of oxygen. Patient was given nebulizer treatment, IV cefepime, IV Solu-Medrol, IV Vanco. Admission Exam Per Admitting Provider General: Elderly man in no acute distress Eyes: PERRL, conjunctivae normal, not pale, anicteric sclerae, EOM intact bilaterally ENMT: External ear and nose normal, oropharynx normal Respiratory: Normal respiratory effort, no respiratory distress, on nasal oxygen (4l/min at home), globally inspiratory and expiratory wheeze, Prolonged expiratory phase Cardiovascular: Pulse is RRR. Heart Sounds: normal S1 and normal S2; no murmurs. Vessels: normal peripheral pulses Extremities: no pedal edema Gastrointestinal (Abdomen): Abdomen is not distended, soft, non-tender to palpation, no guarding, no palpable hepatosplenomegaly, normal bowel sounds Musculoskeletal: No cyanosis or clubbing, all extremities motor strength 5/5, no pedal edema Genitourinary: No CVA tenderness Neurologic: Alert and oriented x 3, No focal weakness, sensation grossly intact Psychiatric: Alert and oriented x 3, euthymic affect, no depressed affect Principal Diagnosis Sepsis secondary to pneumonia COPD exacerbation Elevated troponin Chronic respiratory failure with hypoxia Smoker Leukocytosis Discharge Exam CONSTITUTIONAL: WNWD, vitals as above, generally well-appearing EYES: normal conjunctivae, no scleral icterus ENT: external ear and nose normal, MMM, supplemental oxygen in place via NC RESPIRATORY: Mild wheezing at the bases, improved since yesterday, No crackles or wheezes, normal respiratory effort CARDIOVASCULAR: regular rate and rhythm, S1 and 2 heard without murmurs, gallops or rubs, no JVD, no peripheral edema GASTROINTESTINAL: soft, nontender, nondistended, no guarding MUSCULOSKELETAL: strength 5/5 throughout, head is normocephalic and atraumatic. 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 SKIN: warm and dry NEUROLOGIC: CN 2-12 grossly intact, normal cognition, normal speech, no tremor. No gross focal deficits. PSYCHIATRIC: alert cooperative and oriented to person, place and time. Discharge Data Allergies Allergy/AdvReac Type Severity Reaction Status Date / Time varenicline [From Chantix] AdvReac Mild Nausea Verified 01/12/21 13:02 Consultations 03/03/21 15:56 ED Decision to Admit Stat 03/04/21 07:18 Consult Cardiology Routine Ordered Studies Laboratory Results WBC 26.01 K/uL (4.8-10.8) H 03/09/21 06:11 RBC 4.39 M/uL (4.7-6.1) L 03/09/21 06:11 Hgb 13.3 g/dL (14.0-18.0) L 03/09/21 06:11 Hct 39.8 % (42-52) L 03/09/21 06:11 MCV 90.7 fL (80-100) 03/09/21 06:11 MCH 30.3 pg (25-34) 03/09/21 06:11 MCHC 33.4 g/dL (32-36) 03/09/21 06:11 RDW Std Deviation 45.8 fL (36.4-46.3) 03/09/21 06:11 RDW Coeff of Isaiah 13.8 % (11.5-14.5) 03/09/21 06:11 Plt Count 414 K/uL (130-400) H 03/09/21 06:11 MPV 8.7 fL (7.4-10.4) 03/09/21 06:11 Immature Gran % (Auto) 3.9 % 03/08/21 05:12 Neut % (Auto) 72.3 % 03/08/21 05:12 Lymph % (Auto) 15.9 % 03/08/21 05:12 Stanly % (Auto) 7.5 % 03/08/21 05:12 Eos % (Auto) 0.3 % 03/08/21 05:12 Baso % (Auto) 0.1 % 03/08/21 05:12 Neut # (Auto) 13.83 K/uL (1.4-6.5) H 03/08/21 05:12 Lymph # (Auto) 3.04 K/uL (1.2-3.4) 03/08/21 05:12 Stanly # (Auto) 1.43 K/uL (0.11-0.59) H 03/08/21 05:12 Eos # (Auto) 0.05 K/uL (0-0.5) 03/08/21 05:12 Baso # (Auto) 0.02 K/uL (0-0.2) 03/08/21 05:12 Immature Gran # (Auto) 0.74 K/uL (0.00-0.02) H 03/08/21 05:12 Peripher Smr Path Cons Cancelled 03/09/21 10:06 Sodium 139 mmol/L (136-145) 03/09/21 06:11 Potassium 4.2 mmol/L (3.5-5.1) 03/09/21 07:37 Chloride 104 mmol/L (98-107) 03/09/21 06:11 Carbon Dioxide 32 mmol/L (21-32) 03/09/21 06:11 Anion Gap 3.0 (3-11) 03/09/21 06:11 BUN 18 mg/dl (7-18) 03/09/21 06:11 Creatinine 0.75 mg/dl (0.6-1.4) 03/09/21 06:11 Est Cr Clr Drug Dosing Not Reportable 03/09/21 06:11 Est GFR ( Amer) 107.7 ml/min 03/09/21 06:11 Est GFR (Non-Af Amer) 92.9 ml/min 03/09/21 06:11 BUN/Creatinine Ratio 23.6 (10-20) H 03/09/21 06:11 Glucose 99 mg/dl (70-99) 03/09/21 06:11 Lactate 0.9 mmol/L (0.4-2.0) 03/03/21 16:34 Calcium 8.1 mg/dl (8.5-10.1) L 03/09/21 06:11 Magnesium 2.5 mg/dl (1.8-2.4) H 03/05/21 05:38 Total Bilirubin 1.2 mg/dl (0.2-1) H 03/03/21 13:50 AST 31 U/L (15-37) 03/03/21 13:50 ALT 28 U/L (12-78) 03/03/21 13:50 Alkaline Phosphatase 105 U/L (45-117) 03/03/21 13:50 Troponin I 0.168 ng/ml (0-0.045) H* 03/04/21 01:54 NT-Pro-B Natriuret Pep 289 pg/ml (0-900) 03/07/21 05:24 Total Protein 7.1 gm/dl (6.4-8.2) 03/03/21 13:50 Albumin 2.8 gm/dl (3.4-5.0) L 03/03/21 13:50 Globulin 4.3 gm/dl (2.5-4.0) H 03/03/21 13:50 Albumin/Globulin Ratio 0.7 (0.9-2) L 03/03/21 13:50 Procalcitonin 0.91 ng/ml (0-0.5) H 03/03/21 16:34 Urine Color Yellow 03/06/21 22:00 Urine Appearance Clear (Clear) 03/06/21 22:00 Urine pH 7.0 (4.5-7.5) 03/06/21 22:00 Ur Specific Atkinson 1.023 (1.000-1.030) 03/06/21 22:00 Urine Protein Negative (Negative) 03/06/21 22:00 Urine Glucose (UA) Negative (Negative) 03/06/21 22:00 Urine Ketones Negative (Negative) 03/06/21 22:00 Urine Blood Negative (Negative) 03/06/21 22:00 Urine Nitrite Negative (Negative) 03/06/21 22:00 Urine Bilirubin Negative (Negative) 03/06/21 22:00 Urine Urobilinogen Negative (Negative) 03/06/21 22:00 Ur Leukocyte Esterase Negative (Negative) 03/06/21 22:00 COVID-19 Eval Order Covid19 at [facility] 03/03/21 15:35 SARS-CoV-2 (PCR) NEGATIVE (Negative) 03/03/21 15:35 Impressions Chest X-Ray 03/03/21 13:36 XR chest 1V portable CLINICAL HISTORY: Dyspnea COMPARISON STUDY: 12/03/2020 FINDINGS: The heart is normal in size. There is diffuse elevation of interstitium, likely secondary to congestive failure/pulmonary edema. A bilateral interstitial infectious/inflammatory processes could appear similar, and clinical and radiographic follow-up will be necessary.[There are no large pleural effusions. Underlying emphysema is suspected. 26 mm right perihilar nodule versus summation. Radiographic follow-up recommended IMPRESSION: 1. Diffuse elevation of interstitium. While likely secondary to congestive failure/pulmonary edema, a bilateral interstitial infectious/inflammatory processes could appear similar 2. 26 mm right perihilar nodule versus summation. Neoplasm is unlikely as no abnormalities were identified in this area on the prior November 2020 study. Nevertheless radiographic follow-up is recommended. ACT 112: Negative or not required by law. Electronically signed by: Jeremías Pineda M.D. 03/03/2021 2:[address] 03/03/21 16:51 CT OF THE CHEST WITH IV CONTRAST CLINICAL HISTORY: shortness of breath, pneumonia, COPD COMPARISON STUDY: Chest CT dated 05/25/2019, chest x-ray dated 03/03/2021 TECHNIQUE: Following the IV administration of 94 mL of Optiray, CT of the thorax was performed from the thoracic inlet to the lung bases. Images are reviewed in the axial, sagittal, and coronal planes. IV contrast was administered without complication. A dose lowering technique was utilized adhering to the principles of ALARA. CT DOSE: 324.92 mGy.cm FINDINGS: Thyroid: Imaged portions of the thyroid gland are normal in appearance. Thoracic aorta: The thoracic aorta is normal in course and caliber, noting standard 3-vessel arch anatomy. No aneurysm or dissection is seen. Pulmonary vasculature: The pulmonary trunk is normal in caliber. There are no central filling defects identified to suggest pulmonary embolus. Note that this examination was not protocoled for the evaluation of pulmonary emboli. HEART: The heart is normal in size. There is no pericardial effusion. There are mild coronary artery calcifications. Lungs and pleural spaces: There is pulmonary emphysema. There is significant respiratory motion artifact. There are patchy dependent pulmonary opacities, likely infectious/inflammatory. There is a 15 mm right upper lobe opacity, likely infectious/inflammatory. A few additional scattered nodular opacities are visualized. A two-month follow-up CT scan is recommended. Mediastinum: There is no mediastinal lymphadenopathy. There are mildly enlarged mediastinal lymph nodes, likely reactive Sandra: There are mildly enlarged hilar lymph nodes, likely reactive Axilla: Clear. Upper abdomen: Bilateral superior pole renal hypodensities, likely are artifactual. Skeletal structures: There is an old lower thoracic vertebral body compression deformity. IMPRESSION: 1. Significantly motion degraded study 2. Mild mediastinal and hilar adenopathy, likely reactive 3. Patchy nodular bilateral pulmonary airspace opacities with a lower lung zone predominance. These are likely infectious/inflammatory. A two-month follow-up CT scan is recommended. 4. Pulmonary emphysema ACT 112: Negative or not required by law. Electronically signed by: Jeremías Pineda M.D. 03/03/2021 6:15 PM Hospital Course (1) Sepsis: (2) Pneumonia: (3) COPD exacerbation: (4) Elevated troponin: (5) Chronic respiratory failure with hypoxia: (6) Smoker: (7) Atrial fibrillation: (8) CAD (coronary artery disease): The patient is a 70-year-old man who presented from home with worsening shortness of breath cough and fever for 1 week. He met sepsis criteria and was started on cefepime and vancomycin in the ER. Blood and sputum cultures were ordered and a CT of the chest was ordered revealing patchy nodular bilateral pulmonary airspace opacities with a lower lung zone predominance in the setting of pulmonary emphysema. He was started on scheduled bronchodilator therapy, incentive spirometer and flutter valve. He was started on steroids and given intermittent Lasix intravenously. He had an elevated troponin that was thought likely secondary to demand ischemia in the setting of sepsis as noted other acute ST changes were seen on EKG. The following day he was improved with respect to shortness of breath and coughing cardiology was consulted and noted nonischemic stress nuclear imaging in November 2018. It was noted that he had presumed coronary artery disease, hypertension and hyperlipidemia on therapies and in the setting of acute infection demand ischemia seems the most likely etiology. Beta-ligia and statin were continued. Pulmonary vascular congestion that was seen and treated on initial imaging was not thought secondary to heart failure but more so the acute pulmonary issues. Additional diuretic was given and provided improvement. Although he had a remote history of atrial fibrillation during acute illness he remained in sinus rhythm. As this was likely secondary to acute illness and was transient no further therapy was recommended at this time. At time of discharge he was hemodynamically stable and afebrile and oxygenating well on his baseline supplemental oxygen. His daughter was updated throughout his hospital stay especially closer to discharge as they live together. He was discharged in stable condition with c lose primary care follow-up recommended. A repeat CAT scan was recommended in 2 months to ensure complete resolution of pneumonia. He also had a significant leukocytosis and peripheral smear was performed during his hospital stay, which revealed no abnormal cells. A repeat CBC was recommended in 3 to 4 weeks. Complete smoking cessation was recommended. Total Time Total Time Spent Total Time Spent (In Minutes): 60 Discharge Plan Discharge Items Patient Disposition: Home - Home Health Services Reason For Visit: pneumonia, copd Discharge Diagnosis: Sepsis secondary to pneumonia COPD exacerbation Elevated troponin Chronic respiratory failure with hypoxia Smoker Leukocytosis Condition on Discharge: Fair Activity: Resume your previous activity Non-emergency contact: Primary Care Provider Call non-emergency contact if: you have any medication questions and your symptoms worsen Follow-up/Referrals: Ronald Ribera MD [Primary Care Provider] - (Date & Time 03/15/2021 11:00 AM Provider Ronald Ribera MD Department [facility] ) Diet: Low Sodium (2gm) Addtl Attending Provider Instructions: Please take all medications as instructed on discharge list below. You are being given a few more days of amoxicillin to complete your antibiotic course. You are also being given a short prednisone taper as follows: PREDNISONE TAPER: Take 30mg (3 tabs) x 2 days, then 20mg (2 tabs) x 2 days, then 10mg (1 tab) x 2 days, then stop You had a CT scan (CAT scan) of your chest while admitted which revealed patchy nodular bilateral pulmonary opacities with a lower lung zone predominance. A 2- month follow-up CT scan was recommended. You were also found to have a higher white count likely a result of your infection or steroid use while in the hospital. A peripheral smear did not show any abnormal cells. However, it would be prudent to repeat that CBC (complete blood count) in 3 to 4 weeks. This can be ordered with your primary care provider (PCP). Please continue efforts to quit smoking. You have been provided NicoDerm patches to help you in this effort. Please follow-up with your primary care provider at the time and date listed above to ensure you are doing well since discharge home. A review of your medicines and recheck of your vital signs will be important as well as a touch base so your PCP can order the studies listed. It was a pleasure taking care of you! Please call if you have any questions or problems. You can reach a [facility] hospitalist on duty at [facility] 24 hours a day by calling [phone]. Take care of yourself. Nirali Rai, [facility] Center[facility] Pending Studies at Discharge: No Stand-Alone Forms: My [facility], Smoking Cessation Medications and DC Order Prescriptions: New nicotine [Nicoderm CQ] 21 mg/24 hr Patch 24 Hour 21 mg transdermal QAM Qty: 14 RF: 0 prednisone 10 mg tablet 10 mg PO UD Qty: 12 RF: 0 Continued Symbicort 160-4.5 mcg/actuation HFA aerosol inhaler 2 puff INH BID Qty: 10.2 RF: 5 ipratropium-albuterol 0.5 mg-3 mg(2.5 mg base)/3 mL solution for nebulization 3 ml inhalation Q4H PRN (Reason: COPD) Qty: 540 RF: 5 tiotropium bromide [Spiriva Respimat] 2.5 mcg/actuation mist 2 puff inhalation DAILY RF: 0 atorvastatin 40 mg tablet 40 mg PO QAM RF: 0 aspirin 81 mg Tablet,Delayed Release (Dr/Ec) 81 mg PO QAM RF: 0 metoprolol succinate 50 mg Tablet Extended Release 24 Hr 50 mg PO QAM Qty: 30 RF: 0 albuterol sulfate [Ventolin HFA] 90 mcg/actuation HFA aerosol inhaler 2 inha INH Q4H PRN (Reason: shortness of breath or wheezing) RF: 0 omeprazole 40 mg capsule,delayed release(DR/EC) 40 mg PO DAILY RF: 0 Discharge Orders: Discharge Order (Routine); Ordered 03/09/21 Ordered By: Nirali Gomes/Other Patient Handouts: Chronic Lung Disease Preventing ... Admission Data Admit Date/Time: 03/03/21 16:12 Attending Provider: Nirali Rai Admit Provider: Leslie Bo I. Primary Care Provider: Ronald Ribera Other Providers: Leslie Bo I. ; Miguel Ángel Garcia ; [facility],Home Healthcare ; [facility],Home Health Other Interventions: Discharge Summary Assessment (RN) Last Done: 03/09/21 17:47 Home Health Attestation I certify that this patient is under my care and that I, or a physicians speech pathologist assistant working with me, had a face to-face encounter that meets the home health [id number] encounter requirements with this patient. The encounter with the patient was in whole, or in part, for the following medical condition, which is the primary reason for home health care (list medical condition): I certify that, based on my findings, the following services are medically necessary home health services: My clinical findings support the need for the above services because: PT Assessment for Endurance / Balance / Strength PT Eval for Safety and Mobility PT Eval for Safety, Gait Training, Assistive Devices PT Gait and Balance Training, Strengthening and Safety Skilled Nsg Assessment Further, I certify that my clinical findings support that this patient is homebound (i.e. absences from home require considerable and taxing effort and are for medical reasons or hinduism services or infrequently or of short duration when for other reasons) because: Assistance of 1 Person for Ambulation/Activities Certification for Home Health Services: Based on the above findings, I certify that this patient is confined to the home and needs intermittent senior care care, physical therapy and/or speech therapy or continues to need occupational therapy. The patient is under my care, and I have initiated the establishment of the plan of care. This patient will be followed by a physician who will periodically review the plan of care.
== END 2021-03-09 18:47 | disposition home health service (06) | DRG 871 ==
LOC: ED 12:52 → 2S 16:12 → SUATTDRO 16:12 → 2S 17:44 → 3W 03-07 12:07